=== PATIENT | male | born 1945 | race Caucasian/White ===

== ENCOUNTER → 2016-12-04 | Outpatient (CLI) | payer BC, OTHER ==
[~2016-12-04] MED LIST: ACET-1256 PO; ATOR-22 PO; MULT-506 PO; NRN/600 PO; RQP/2 PO; TAMS0.4C38 PO
--- NOTE | 2016-12-04 09:56 | DIAGNOSTIC IMAGING REPORT ---
LEFT HAND MIN 3 VIEWS CLINICAL HISTORY: LEFT HAND PAIN pain COMPARISON: None. DISCUSSION: The bones and joint spaces appear intact. There is no evidence of fracture, dislocation or bony disease. Minimal degenerative change of the interphalangeal as well as metacarpophalangeal joints. Moderate degenerative change first carpometacarpal joint. IMPRESSION: Mild to moderate degenerative change. No acute bony abnormality. Electronically signed by: Esteban Negro M.D. 12/04/2016 9:55 AM Dictated Date/Time: 12/04/2016 9:53 AM
== END | disposition home or self-care (01) ==
LOC: C.RDSM 12:24
PROVIDERS: ATTEND Internal Medicine
DX: M79.642 Pain in left hand (principal)

== ENCOUNTER → 2016-12-13 | Day surgery (SDC) | payer BC, OTHER ==
[2016-12-03 12:11] VITALS: Ht 170.2 cm; Wt 81.8 kg
[~2016-12-13] VITALS: Ht 170.2 cm; Wt 81.8 kg
[~2016-12-13] MED LIST changes: +BUPIVACAINE 0.25% 2.5MG/ML PF 10 ML VIAL INFIL ONE; +IOPAMIDOL INJ 61% 15 ML VIAL ONE; +LIDOCAINE HCL 1% MPF 5 ML VIAL ONE
--- NOTE | 2016-12-13 14:31 | History & Physical Bridge - [place] ---
H&P Re-Evaluation Bridge Note: I have examined the patient, reviewed the History & Physical and in the interval since the performance of the History & Physical I have noted the following changes of clinical significance: No changes noted
[2016-12-13] MEDS: SODIUM CHLORIDE 0.9% INJ 10 ML VIAL ONE ×2 (14:43→14:51)
[2016-12-13 14:57] VITALS: TEMP 36.7
[2016-12-13 15:06] VITALS: BP 166/89; PULSE 65; O2SAT 94
--- NOTE | 2016-12-13 15:07 | Discharge Instructions ---
Discharge Instructions Date of Service Dec 13, 2016. Visit Reason for Visit: Lumbosacral Radiculopathy Discharge Discharge Diagnosis / Problem: leg pain Discharge Goals Goal(s): Decrease discomfort, Improve function Activity Recommendations Activity Limitations: resume your previous activity Anesthesia . Post Anesthesia Instructions: If you have had General Anesthesia or IV Sedation: * Do not drive today. * Resume driving when surgeon permits. * Do not make important decisions or sign legal documents today. * Call surgeon for: 1. Temperature elevations greater than 101 degrees F. 2. Uncontrollable pain. 3. Excessive bleeding. 4. Persistent nausea and vomiting. 5. Medication intolerance (nausea, vomiting or rash). * For nausea and vomiting use only clear liquids such as: tea, soda, bouillon until nausea subsides, then gradually increase diet as tolerated. * If you have any concerns or questions, call your surgeon's office. If physician is unavailable and it is an emergency, call 911 or go to the nearest emergency room. . Diet Recommendations Recommended Home Diet: resume previous diet Procedures Procedures Performed: Right L1-2 Transforaminal epidural steroid injection Pending Studies Studies pending at discharge: no Medical Emergencies . Who to Call and When: Medical Emergencies: If at any time you feel your situation is an emergency, please call 911 immediately. . Non-Emergent Contact Non-Emergency issues call your: Specialist . . "Provider Documentation" section prepared by Christiano Max.
--- NOTE | 2016-12-13 15:21 | OPERATIVE REPORT ---
DATE OF OPERATION: 12/13/2016 PREOPERATIVE DIAGNOSIS: L1-L2 discogenic bulge with a right L2 radiculopathy. POSTOPERATIVE DIAGNOSIS: Same. PROCEDURE: Right L1-L2, right paramedian intralaminar epidural steroid injection under fluoroscopic guidance. INDICATIONS: The patient is a 71-year-old white male who has a history of a lumbar stenosis with fusion. He recently began having problems with a right L2 radiculopathy. He presents today for a transforaminal approach to deal with the right-sided pain. Recently, he is describing pain now starting to begin on the left side as a problem, the same location. He presents for an epidural injection to relieve his radicular pain. PHYSICAL EXAMINATION: Pleasant male seated comfortably. A well-healed multilevel incision. He had no issues with forward flexion or extension. He had normal motor and sensory examination. CONSENT: Verbal and written consent was obtained from the patient. Risks and benefits were reviewed. Risks include but are not limited to epidural abscess, allergic reaction, dural puncture; he wishes to proceed. PROCEDURE: The patient was taken back to the special procedures room of the [facility] where he was maintained in a prone position. Backside was cleansed with Betadine x3 and a dry sterile dressing was applied. Fluoroscope was used to identify the L1-L2 intralaminar space. What was noted was that his level of fusion scar was a good inch below the interlaminar opening. Decision was made to do an intralaminar rather than a transforaminal approach given the fact that the patient now began having bilateral symptoms and a right transforaminal approach would have only address symptoms on the right. Intralaminar approach would get bilateral symptoms. The overlying skin at L1-L2 was anesthetized on the right side with 4 mL of lidocaine 1% with a 25 gauge 1.5-inch needle. A 22-gauge 3-1/2 inch Tuohy needle was then directed under fluoroscopic guidance into the intralaminar space and advanced laterally with a loss of resistance noted at a depth of 6.5 cm. Isovue 300 contrast 3/4 reserve mL was injected in which demonstrated epidural uptake pattern which was confirmed with both lateral and AP view. He then underwent injection after negative aspiration of 3 mL of preservative free sodium chloride and 40 mg of Depo-Medrol. Injection was well tolerated. DISPOSITION: 1. The patient is taken out into the discharge recovery area where he will be discharged home once discharge criteria have been met. 2. Follow up in the [facility] Medicine office in 2-4 weeks. I attest to the content of the Intraoperative Record and any orders documented therein. Any exceptio ns are noted below.
== END | disposition home or self-care (01) ==
LOC: X.SURG 13:40
PROVIDERS: ATTEND Physical Medicine & Rehabilitation
DX: M54.16 Radiculopathy, lumbar region (principal); M51.36 Other intervertebral disc degeneration, lumbar region; Z98.1 Arthrodesis status

== ENCOUNTER → 2017-01-21 | Outpatient (CLI) | payer BC, OTHER ==
[~2017-01-21] MED LIST changes: -BUPIVACAINE 0.25% 2.5MG/ML PF 10 ML VIAL INFIL ONE; +GADAVIST IV PRN; -IOPAMIDOL INJ 61% 15 ML VIAL ONE; -LIDOCAINE HCL 1% MPF 5 ML VIAL ONE
--- NOTE | 2017-01-21 10:55 | DIAGNOSTIC IMAGING REPORT ---
MRI OF THE LUMBAR SPINE WITH AND WITHOUT CONTRAST CLINICAL HISTORY: History of fusion with right L2 radiculopathy. COMPARISON STUDY: None. TECHNIQUE: Utilizing a 1.5 Radha magnet and dedicated coil, multiplanar, multiecho imaging of the lumbar spine was performed before and after uneventful IV administration of 8 mL of Gadavist. FINDINGS: For purposes of numbering on this exam, the L5-S1 disc space is assigned to axial image 27 of 30. There is 3 mm of anterolisthesis of L4 and L5. There is mild levoscoliosis of the lumbar spine. There is a posterior decompression at the L4-S1 level. There is bilateral pedicle screws at the L4 and L5 levels with evidence of a previous L5-S1 discectomy with fusion. No intracanalicular mass or fluid collection is present. Conus terminates at the lower L1 level. There is a suspected 1.9 cm right renal cyst. Discogenic changes are noted at the L1-L2 level. Mild disc bulges at T11-T12 and T12-L1 are noted. L1-2: There is disc space narrowing with disc bulge, ligamentous hypertrophy and facet arthrosis that result in severe narrowing of the central canal, lateral recesses and neural foramen. L2-3: There is marked disc with mild disc bulge, ligamentous hypertrophy and facet arthrosis. There is mild narrowing of the central canal, lateral recesses and left neural foramen with moderate to severe narrowing of the right neural foramen. L3-4: There is displacement with disc bulge, ligamentous hypertrophy and facet arthrosis. There is mild narrowing of the central canal, lateral recesses and neural foramen. L4-5: There is no central canal stenosis. There is moderate bilateral neural foraminal stenosis. L5-S1: There is no central canal stenosis. There is mild bilateral neural foraminal stenosis. IMPRESSION: 1. Status post previous L5-S1 discectomy and fusion. L4-L5 decompression and bilateral pedicle screw fusion. 2. Mild levoscoliosis of lumbar spine and grade I anterolisthesis of L4 and L5. 3. Severe narrowing of the central canal, lateral recesses and neural foramen at L1-L2 due to disc bulge, ligamentous hypertrophy and facet arthrosis. 4. Mild central canal stenosis at L2-L3 and L3-L4. 5. Moderate to severe multilevel neural foraminal stenosis, most pronounced at L1-L2 and L2-L3, as described above. Electronically signed by: Stan Powell M.D. 01/21/2017 10:54 AM Dictated Date/Time: 01/21/2017 10:44 AM
== END | disposition home or self-care (01) ==
LOC: C.MRI 09:19
PROVIDERS: ATTEND Physical Medicine & Rehabilitation
DX: M54.17 Radiculopathy, lumbosacral region (principal)

== ENCOUNTER → 2017-06-18 | Outpatient (CLI) | payer BC, OTHER ==
[~2017-06-18] MED LIST changes: -GADAVIST IV PRN
--- NOTE | 2017-06-18 10:51 | DIAGNOSTIC IMAGING REPORT ---
RIGHT KNEE 4 VIEWS HISTORY: RIGHT KNEE PAIN AND SWELLING COMPARISON: None. FINDINGS: There is no fracture or dislocation. Soft tissues are unremarkable. Mild cartilage space narrowing within the medial compartment of the bilateral knees. Suggestion of faint bilateral chondrocalcinosis. Trace right knee effusion. Mild vascular calcifications. IMPRESSION: 1. 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 2. Trace right knee effusion. 3. Chondrocalcinosis. Electronically signed by: Alfredo Dowd M.D. 06/18/2017 10:50 AM Dictated Date/Time: 06/18/2017 10:48 AM
== END | disposition home or self-care (01) ==
LOC: C.RDSM 10:32
PROVIDERS: ATTEND Internal Medicine
DX: M25.561 Pain in right knee (principal); M11.261 Other chondrocalcinosis, right knee

== ENCOUNTER → 2018-04-30 | Day surgery (SDC) | payer BC, OTHER ==
[2018-04-17 12:21] VITALS: Ht 170.2 cm; Wt 82.7 kg
[~2018-04-30] VITALS: Ht 170.2 cm; Wt 82.7 kg
[~2018-04-30] MED LIST changes: +ASPCH81X PO; +BUPIVACAINE 0.25% 30 ML VIAL ONE; +BUPR75TA20 PO; +GLIM2TAB2 PO; +IOPAMIDOL INJ 61% 15 ML VIAL ONE; +LIDOCAINE HCL 1% MPF 5 ML VIAL ONE; +LISI-461 PO
[2018-04-30] MEDS: SODIUM CHLORIDE 0.9% INJ 10 ML VIAL ONE ×2 (13:11→13:20)
--- NOTE | 2018-04-30 13:24 | [facility] Post Operative Brief Note ---
Immediate Operative Summary Operative Date Apr 30, 2018. Pre-Operative Diagnosis HISTORY OF LUMBOSACRAL RADICULOPATHY AT L4 Post-Operative Diagnosis HISTORY OF LUMBOSACRAL RADICULOPATHY AT L4 Procedure(s) Performed LUMBAR EPIDURAL STEROID INJECTION VIA TRANSFORAMINAL APPROACH Surgeon DR. Forest PRADHAN Sheet Folder Surgeon(s) None Estimated Blood Loss 0 Findings Consistent with Post-Op Diagnosis Specimens NA Drains None Anesthesia Type Local Disposition Disposition:
--- NOTE | 2018-04-30 13:26 | Discharge Instructions ---
Discharge Instructions Date of Service Apr 30, 2018. Visit Reason for Visit: Radiculopathy Discharge Discharge Diagnosis / Problem: right leg pain Discharge Goals Goal(s): Decrease discomfort, Improve function Medications Stopped Medications Name(s): Last dose ASA 04/26/18. Activity Recommendations Activity Limitations: resume your previous activity Anesthesia . Post Anesthesia Instructions: If you have had General Anesthesia or IV Sedation: * Do not drive today. * Resume driving when surgeon permits. * Do not make important decisions or sign legal documents today. * Call surgeon for: 1. Temperature elevations greater than 101 degrees F. 2. Uncontrollable pain. 3. Excessive bleeding. 4. Persistent nausea and vomiting. 5. Medication intolerance (nausea, vomiting or rash). * For nausea and vomiting use only clear liquids such as: tea, soda, bouillon until nausea subsides, then gradually increase diet as tolerated. * If you have any concerns or questions, call your surgeon's office. If physician is unavailable and it is an emergency, call 911 or go to the nearest emergency room. . Diet Recommendations Recommended Home Diet: resume previous diet Procedures Procedures Performed: LUMBAR EPIDURAL STEROID INJECTION VIA TRANSFORAMINAL APPROACH Pending Studies Studies pending at discharge: no Medical Emergencies . Who to Call and When: Medical Emergencies: If at any time you feel your situation is an emergency, please call 911 immediately. . Non-Emergent Contact Non-Emergency issues call your: Specialist . . "Provider Documentation" section prepared by Christiano Max. .
[2018-04-30 13:30] VITALS: TEMP 37.2
[2018-04-30 13:50] VITALS: BP 168/90; PULSE 64; O2SAT 96
--- NOTE | 2018-04-30 14:29 | OPERATIVE REPORT ---
DATE OF OPERATION: 04/30/2018 PREOPERATIVE DIAGNOSIS: History of an L4-L5 fusion, L5-S1 prior fusion, with L4 radiculopathy, right lower extremity. POSTOPERATIVE DIAGNOSIS: Same. PROCEDURE: L4-L5 transforaminal epidural steroid injection under fluoroscopic guidance. INDICATIONS: Patient is a 72-year-old white male who has a right L4 radiculopathy that follows a classic dermatomal distribution, presents today for an epidural injection to provide her with relief. PHYSICAL EXAMINATION: Pleasant male, seated comfortably. He had negative seated straight leg raises, no reproduction of pain with internal rotation of the right hip. External rotation reproduced pain but not to the Alfredo maneuver. Intact sensation. No focal weakness. CONSENT: Verbal and written consent was obtained from the patient. Risks and benefits reviewed. Risks include but are not limited to abscess and allergic reaction, and he wishes to proceed. PROCEDURE: Patient was taken back to the special procedures room of the [facility] where he was maintained in a prone position. Backside was cleansed with Betadine. It became apparent that it could not be entered via the interlaminar approach, and a transforaminal approach was sought. In an oblique view, identifying the inferior L4-L5 pedicle, the inferior pedicle of L4, overlying skin was anesthetized with 4 mL of lidocaine 1% with 25 gauge 1-1/2 inch needle. A 22 gauge 5 inch spinal needle was then directed as a target. It was then advanced and injected with Isovue 300 contrast, which demonstrated a nerve outline but also some superior migration that was felt to be along the osteophyte. It was then advanced a millimeter or two, and he had pain reproduced down the leg in a familiar distribution. It was retracted 1 mm and injected after negative aspiration with 40 mg of Depo-Medrol and 1 mL of bupivacaine 0.25%. This caused transient numbing sensation down the leg in a familiar distribution. He then underwent injection after negative aspiration of 40 mg Depo-Medrol and 1 mL of bupivacaine 0.25%. DISPOSITION: 1. The patient is taken out in discharge recovery area where he will be discharged home once discharge criteria met. 2. Follow up in the [facility] office in 4 weeks' time. I attest to the content of the Intraoperative Record and any orders documented therein. Any exception s are noted below.
== END | disposition home or self-care (01) ==
LOC: X.SURG 12:13
PROVIDERS: ATTEND Physical Medicine & Rehabilitation
DX: M54.16 Radiculopathy, lumbar region (principal); Z98.1 Arthrodesis status

== ENCOUNTER 2020-10-20 02:50 | Inpatient (IN) ==
[2020-10-20] MEDS ORDERED: NITROGLYCERIN SL 0.4 MG/TAB TAB SL PRN (03:03)
[2020-10-20] MEDS ORDERED: NITROGLYCERIN SL 0.4 MG/TAB TAB SL STA (03:03)
--- NOTE | 2020-10-20 03:07 | Emergency Department Note ---
Impression & Plan ST elevation (STEMI) myocardial infarction ED Provider Note Name: BEV JOSE Age: 75 Sex: M Arrives Via: Walk-In Informant: Patient, ED Provider: Sameer Saavedra MD Chief Complaint: Chest Pain Impression: ST Elevation (STEMI) myocardial Infarction Medical Decision Makin yr old male with history of DMII, HTN, DLP, and family CAD history arrives with several hours chest pain radiating bilateral upper (did also occur a few days ago briefly as well). EKG on arrival consistent with RCA occlusion STEMI. Heart alert called and cath team activated. Pulses intact all4 extremities and CXR without widened mediastinum thus dissection less likely than acs. Quite Hypertensive on arrival and given SLNTG x2 with improvement in pain and bp. Does have some mild sob and crackles, along with CXR somewhat concerning for mild chf. Sats mid/low 90s thus placed on NC O2. Initial labs with good Cr. Already took 324mg PO ASA at home. Per protocol cath team to manage further anticoagulation. 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 Patient taken to Handling Tech with Dr Guardado. Of note some mildly increased ectopy though without symptoms prior to going to manager laboratory, pads in place. Prior Medical Record and Triage/Nursing Notes reviewed by Me Additional history obtained from chart and Differentials:Cardiac ischemia, aortic dissection, pulmonary embolism, p neumothorax, pneumonia, pericarditis, myocarditis, esophageal rupture, GERD, cholecystitis, pancreatitis, musculoskeletal, as well as other pathologies. Vital Signs: reviewed and remarkable for HTN Interventions: SLNTG x 2 Labs:Reviewed and remarkable for elevated troponin Imaging:X ray results are stated below per my interpretation: Chest: 1 view: No infiltrate, no effusion, normal cardiac border. Mild congestion. EKG:Per My Interpretation: Indication Chest Pain: NSR 76 bpm, qtc 443. Acute Inferior STEMI with PVC noted. Compared to EKG 07/26/18 he now has acute STEMI. Cardiac/Tele Monitoring: Cardiac Monitoring: An Order was placed for continuous cardiac monitoring. The monitor shows a rate of 70 with a normal sinus rhythm with ectopy noted at times. Consults:Dr Guardado Cardiac Interventionalist - took patient to manager laboratory. Dr Brito MA Hospitalist aware of patient going to manager laboratory. Plan: Disposition:Hospitalization. Condition: Critical History of Present Illness:75 yr old male with chest pain. Notes substernal radiating across upper chest. Heavy and constant. 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 Used ASA 324mg PO at home without relief. Feels slightly lightheaded. No nausea, vomiting, syncope, palpitations, back pain, abdominal pain, leg swelling, calf pain, headache, neck pain, fevers, chills, nor other symptoms. Denies inciting event. Notes some similar pain 3 days ago which resolved on its own. No KEENAN r ecently. Denies previous cardiac history. ROS: See above HPI for pertinent positives & negatives. A total of 10 systems reviewed and were otherwise negative. Past Medical History:HTN, DMII, DLP, Back pain, restless leg, migraines, anxiety Past Surgical History:Gallbladder, shoulder, Lumbar, hemorrhoid Family History:Denies family history Social History:Retired, , no etoh, no tobacco use, no drugs Home Medications:See Below Allergies:metformin, mirapex, ropinirole Vitals:Blood Pressure: 206/113, Pulse 72, RR 18, T 37.2C, O2 95% on RA Physical Exam: GENERAL: Patient is anxious appearing and in moderate distress. EYES: No scleral icterus, unremarkable pupils. ENT: Mucous membranes moist, no nasal congestion. NECK: No masses appreciated, nomeningismus, trachea is midline. RESPIRATORY: Mild dyspnea with some slight crackles at bases, no wheezing CARDIOVASCULAR: Regular rate and rhythm.No murmurs, rubs, gallops appreciated. GASTROINTESTINAL: Abdomen soft, non-tender, no peritonitis.Bowel sounds positive.No masses appreciated. BACK: No midline tenderness, no CVA tenderness EXTREMITIES: Normal motion all extremities, no cyanosis, no edema. NEUROLOGIC: Alert and oriented, no acute motor or sensory deficits, no focal weakness, cranial nerves grossly intact. SKIN: No rash, no jaundice, no diaphoresis. PSYCH: Appropriate GCS: 15 ED Course: Times/Reassessments: Gradually improving chest pain Critical Care: I have personally spent 35 minutes of critical care time in the direct management of this patient. Acute STEMI requiring manager laboratory activation. This was a life/limb threatening event. This 35 minutes is in excess of all separately billable procedures. Sameer Saavedra MD Past Med/Surg History Medical History (Updated 10/20/20 @ 05:48 by Sameer Saavedra MD) BPH (benign prostatic hyperplasia) Chronic back pain Depression Diabetes Hyperlipidemia Hypertension Lumbar spinal stenosis T12-L1 Osteoarthritis Restless leg syndrome Surgical History (Updated 05/16/20 @ 13:42 by [employer] Nm) H/O hemorrhoidectomy H/O shoulder surgery History of back surgery X4 - FUSION AND DISECTOMIES History of bunionectomy of right great toe History of cholecystectomy History of tonsillectomy Family History Other Family history non-contributory Social History Smoking Status: Never smoker Second Hand Exposure: No; Hx Alcohol Use: No Hx Substance Use: Yes (has a marijuana card but doesnt use it) Preferred Language: Brazilian Communication Ability: Effective Visual Impairment: No Limitations Hearing Ability: Normal Beliefs That Will Affect Care: None marital status: Current Living Situation: Spouse current occupational status: retired Feels Safe at Home: Yes Safety Concerns: Feels Safe At This Time Assistive Devices: Glasses Allergies Allergies Allergy/AdvReac Type Severity Reaction Status Date / Time metformin AdvReac Severe Diarrhea Verified 10/20/20 03:16 pramipexole [From Mirapex] AdvReac Unknown insomnia Verified 10/20/20 03:16 ropinirole AdvReac Unknown nasal Verified 10/20/20 03:16 congestion Home Meds Home Medications Medication Instructions Recorded Confirmed atorvastatin 20 mg PO HS 07/26/18 10/20/20 bupropion HCl 150 mg PO QPM 07/26/18 10/20/20 lisinopril [Zestril] 10 mg PO QAM 07/26/18 10/20/20 multivitamin 1 tab PO QAM 07/26/18 10/20/20 acetaminophen 650 mg PO Q6H PRN 04/01/19 10/20/20 ibuprofen 800 mg tablet 800 mg PO Q8H PRN 09/22/19 10/20/20 lorazepam 1 mg tablet 1 mg PO DAILY PRN 09/22/19 10/20/20 meloxicam 15 mg tablet 15 mg PO DAILY PRN 09/22/19 10/20/20 ropinirole 2 mg tablet 3.5 mg PO .COMPLEX tab 11/03/19 10/20/20 aluminum hydrox-magnesium carb 2 tab PO DIRECTED PRN 10/20/20 10/20/20 [Gaviscon] aspirin [Aspirin Child] 324 mg PO ONCE 10/20/20 10/20/20 gabapentin 600 mg PO TID PRN 10/20/20 10/20/20 hydrocodone-acetaminophen 1 tab PO DIRECTED PRN 10/20/20 10/20/20 oxybutynin chloride 5 mg PO DAILY 10/20/20 10/20/20 turmeric 400 mg PO DAILY 10/20/20 10/20/20 Results & Data (ED) Vital Signs Vital Signs - 24 hr 10/20/20 02:51 10/20/20 03:10 10/20/20 03:15 Temperature 37.2 C Temperature Source Temporal Artery Scan Pulse Rate 72 88 100 H Pulse Rate from SpO2 Sensor Respiratory Rate 18 21 21 Respiratory Effort / Characteristics Non-Labored Spontaneous Respiratory Depth Normal Respiratory Pattern Regular Blood Pressure 206/113 H 178/106 H 164/78 H Blood Pressure Mean 144 130 106 Blood Pressure Position Sitting Pulse Oximetry 95 93 91 Oxygen Delivery Method Room Air Room Air Room Air Oxygen Flow Rate Sepsis Recent Fever Within 48 Hours No Sepsis New/Unexplained Change in Mental Status No Sepsis Action Taken by Nursing No Action Required 10/20/20 03:30 Temperature Temperature Source Pulse Rate 87 Pulse Rate from SpO2 Sensor 66 Respiratory Rate 20 Respiratory Effort / Characteristics Respiratory Depth Respiratory Pattern Blood Pressure 175/96 H Blood Pressure Mean 122 Blood Pressure Position Pulse Oximetry 94 Oxygen Delivery Method Nasal Cannula Oxygen Flow Rate 2 Sepsis Recent Fever Within 48 Hours Sepsis New/Unexplained Change in Mental Status Sepsis Action Taken by Nursing Laboratory Data Result diagrams: 10/20/20 03:05 10/20/20 03:05 Lab Results 10/20/20 10/20/20 10/20/20 Range/Units 03:05 03:05 03:05 WBC 6.94 (4.8-10.8) K/uL RBC 5.33 (4.7-6.1) M/uL Hgb 16.1 (14.0-18.0) g/dL POC Hgb (14.0-18.0) g/dl Hct 47.3 (42-52) % POC Hct (42-52) % MCV 88.7 (80-100) fL MCH 30.2 (25-34) pg MCHC 34.0 (32-36) g/dL RDW Std Deviation 44.5 (36.4-46.3) fL RDW Coeff of Linh 13.6 (11.5-14.5) % Plt Count 179 (130-400) K/uL MPV 11.1 H (7.4-10.4) fL Immature Gran % (Auto) 0.3 % Neut % (Auto) 63.1 % Lymph % (Auto) 19.2 % Sabine % (Auto) 13.3 % Eos % (Auto) 4.0 % Baso % (Auto) 0.1 % Neut # (Auto) 4.38 (1.4-6.5) K/uL Lymph # (Auto) 1.33 (1.2-3.4) K/uL Sabine # (Auto) 0.92 H (0.11-0.59) K/uL Eos # (Auto) 0.28 (0-0.5) K/uL Baso # (Auto) 0.01 (0-0.2) K/uL Immature Gran # (Auto) 0.02 (0.00-0.02) K/uL PT 10.4 (9.0-12.0) Seconds INR 1.0 (0.9-1.1) APTT 28.9 (21.0-31.0) Seconds PTT Ratio 1.1 Activ Coag Time Kaolin (94-140) SECONDS POC Sodium (135-144) mmol/L Sodium 142 (136-145) mmol/L POC Potassium (3.3-5.0) mmol/L Potassium 3.9 (3.5-5.1) mmol/L POC Chloride (101-112) mmol/L Chloride 111 H (98-107) mmol/L Carbon Dioxide 24 (21-32) mmol/L POC Total CO2 (24-31) mmol/L Anion Gap 7.0 (3-11) POC Anion Gap (16-25) mmol/L POC BUN (7-18) mg/dl BUN 26 H (7-18) mg/dl Creatinine 0.97 (0.6-1.4) mg/dl POC Creatinine (0.6-1.3) mg/dl Est Cr Clr Drug Dosing 71.8 ml/min Est GFR ( Amer) 89.4 Est GFR (Non-Af Amer) 77.1 BUN/Creatinine Ratio 26.4 H (10-20) Glucose 148 H (70-99) mg/dl POC Glucose (other) (70-99) mg/dl Calcium 8.5 (8.5-10.1) mg/dl POC Ioniz Calcium Michael (1.12-1.32) mmol/l Troponin I 0.229 H* (0-0.045) ng/ml Triglycerides Cholesterol LDL Cholesterol Direct LDL Cholesterol, Calc VLDL Cholesterol, Calc HDL Cholesterol Cholesterol/HDL Ratio COVID-19 Eval Order SARS-CoV-2, RNA, NAAT (NEGATIVE) 10/20/20 10/20/20 10/20/20 Range/Units 03:05 03:05 03:05 WBC (4.8-10.8) K/uL RBC (4.7-6.1) M/uL Hgb (14.0-18.0) g/dL POC Hgb (14.0-18.0) g/dl Hct (42-52) % POC Hct (42-52) % MCV (80-100) fL MCH (25-34) pg MCHC (32-36) g/dL RDW Std Deviation (36.4-46.3) fL RDW Coeff of Linh (11.5-14.5) % Plt Count (130-400) K/uL MPV (7.4-10.4) fL Immature Gran % (Auto) % Neut % (Auto) % Lymph % (Auto) % Sabine % (Auto) % Eos % (Auto) % Baso % (Auto) % Neut # (Auto) (1.4-6.5) K/uL Lymph # (Auto) (1.2-3.4) K/uL Sabine # (Auto) (0.11-0.59) K/uL Eos # (Auto) (0-0.5) K/uL Baso # (Auto) (0-0.2) K/uL Immature Gran # (Auto) (0.00-0.02) K/uL PT (9.0-12.0) Seconds INR (0.9-1.1) APTT (21.0-31.0) Seconds PTT Ratio Activ Coag Time Kaolin (94-140) SECONDS POC Sodium (135-144) mmol/L Sodium (136-145) mmol/L POC Potassium (3.3-5.0) mmol/L Potassium (3.5-5.1) mmol/L POC Chloride (101-112) mmol/L Chloride (98-107) mmol/L Carbon Dioxide (21-32) mmol/L POC Total CO2 (24-31) mmol/L Anion Gap (3-11) POC Anion Gap (16-25) mmol/L POC BUN (7-18) mg/dl BUN (7-18) mg/dl Creatinine (0.6-1.4) mg/dl POC Creatinine (0.6-1.3) mg/dl Est Cr Clr Drug Dosing ml/min Est GFR ( Amer) Est GFR (Non-Af Amer) BUN/Creatinine Ratio (10-20) Glucose (70-99) mg/dl POC Glucose (other) (70-99) mg/dl Calcium (8.5-10.1) mg/dl POC Ioniz Calcium Michael (1.12-1.32) mmol/l Troponin I (0-0.045) ng/ml Triglycerides Cancelled Cholesterol Cancelled LDL Cholesterol Direct Cancelled LDL Cholesterol, Calc Cancelled VLDL Cholesterol, Calc Cancelled HDL Cholesterol Cancelled Cholesterol/HDL Ratio Cancelled COVID-19 Eval [facility] SARS-CoV-2, RNA, NAAT NEGATIVE (NEGATIVE) 10/20/20 10/20/20 Range/Units 03:19 04:05 WBC (4.8-10.8) K/uL RBC (4.7-6.1) M/uL Hgb (14.0-18.0) g/dL POC Hgb 16.3 (14.0-18.0) g/dl Hct (42-52) % POC Hct 48 (42-52) % MCV (80-100) fL MCH (25-34) pg MCHC (32-36) g/dL RDW Std Deviation (36.4-46.3) fL RDW Coeff of Linh (11.5-14.5) % Plt Count (130-400) K/uL MPV (7.4-10.4) fL Immature Gran % (Auto) % Neut % (Auto) % Lymph % (Auto) % Sabine % (Auto) % Eos % (Auto) % Baso % (Auto) % Neut # (Auto) (1.4-6.5) K/uL Lymph # (Auto) (1.2-3.4) K/uL Sabine # (Auto) (0.11-0.59) K/uL Eos # (Auto) (0-0.5) K/uL Baso # (Auto) (0-0.2) K/uL Immature Gran # (Auto) (0.00-0.02) K/uL PT (9.0-12.0) Seconds INR (0.9-1.1) APTT (21.0-31.0) Seconds PTT Ratio Activ Coag Time Kaolin 312 H (94-140) SECONDS POC Sodium 140 (135-144) mmol/L Sodium (136-145) mmol/L POC Potassium 3.7 (3.3-5.0) mmol/L Potassium (3.5-5.1) mmol/L POC Chloride 106 (101-112) mmol/L Chloride (98-107) mmol/L Carbon Dioxide (21-32) mmol/L POC Total CO2 22 L (24-31) mmol/L Anion Gap (3-11) POC Anion Gap 16.0 (16-25) mmol/L POC BUN 25 H (7-18) mg/dl BUN (7-18) mg/dl Creatinine (0.6-1.4) mg/dl POC Creatinine 0.8 (0.6-1.3) mg/dl Est Cr Clr Drug Dosing ml/min Est GFR ( Amer) Est GFR (Non-Af Amer) BUN/Creatinine Ratio (10-20) Glucose (70-99) mg/dl POC Glucose (other) 150 H (70-99) mg/dl Calcium (8.5-10.1) mg/dl POC Ioniz Calcium Michael 1.14 (1.12-1.32) mmol/l Troponin I (0-0.045) ng/ml Triglycerides Cholesterol LDL Cholesterol Direct LDL Cholesterol, Calc VLDL Cholesterol, Calc HDL Cholesterol Cholesterol/HDL Ratio COVID-19 Eval Order SARS-CoV-2, RNA, NAAT (NEGATIVE) Administered Medications Discontinued Medications Atropine Sulfate (Atropine Sulfate 0.1 Mg/Ml 10ml Syr) Confirm Administered Dose 1 mg IV .STConspire-MED ONE Stop: 10/20/20 03:54 Last Admin: 10/20/20 05:05 Dose: Not Given Documented by: [id number] Fentanyl Citrate (Fentanyl Citrate 100 Mcg/2 Ml Vial) Confirm Administered Dose 100 mcg .ROUTE .STK-MED ONE Stop: 10/20/20 03:23 Last Admin: 10/20/20 05:04 Dose: Not Given Documented by: [id number] Heparin Sodium (Porcine) (Heparin (Porcine) 1000 Unit/Ml 10 Ml (Handling Tech Use Only)) Confirm Administered Dose 10,000 units .ROUTE .STK-MED ONE Stop: 10/20/20 03:23 Last Admin: 10/20/20 05:05 Dose: Not Given Documented by: [id number] Midazolam HCl (Midazolam Hcl 1 Mg/Ml 2ml Vial) Confirm Administered Dose 2 mg .ROUTE .STK-MED ONE Stop: 10/20/20 03:24 Last Admin: 10/20/20 05:05 Dose: Not Given Documented by: [id number] Midazolam HCl (Midazolam Hcl 1 Mg/Ml 2ml Vial) Confirm Administered Dose 2 mg .ROUTE .ST-MED ONE Stop: 10/20/20 04:11 Last Admin: 10/20/20 05:05 Dose: Not Given Documented by: [id number] Nicardipine HCl (Nicardipine Hcl Inj 2.5 Mg/Ml 10 Ml Amp) Confirm Administered Dose 25 mg .ROUTE .STConspire-MED ONE Stop: 10/20/20 03:23 Last Admin: 10/20/20 05:04 Dose: Not Given Documented by: [id number] Nitroglycerin (Nitroglycerin Sl 0.4 Mg/Tab Tab) 0.4 mg SL NOW STA Stop: 10/20/20 03:04 Last Admin: 10/20/20 03:11 Dose: 0.4 mg Documented by: [id number] Nitroglycerin (Nitroglycerin Sl 0.4 Mg/Tab Tab) 0.4 mg SL PRN PRN PRN Reason: chest pain Stop: 11/19/20 03:02 Last Admin: 10/20/20 03:27 Dose: 0.4 mg Documented by: [id number] Nitroglycerin/Dextrose (Nitroglycerin/D5w 100mcg/Ml 20ml Syr) Confirm Administered Dose 2,000 mcg .ROUTE .STK-MED ONE Stop: 10/20/20 03:24 Last Admin: 10/20/20 05:05 Dose: Not Given Documented by: [id number] Ticagrelor (Ticagrelor 90 Mg Tab) Confirm Administered Dose 180 mg PO .STK-MED ONE Stop: 10/20/20 04:25 Last Admin: 10/20/20 05:05 Dose: Not Given Documented by: [id number] Discharge Plan Visit Data Chief Complaint: Chest Pain Stated Complaint: chest pain ED Provider: Sameer Saavedra Discharge Problem: ST elevation (STEMI) myocardial infarction Patient Disposition: Admitted As Inpatient Discharge Instructions Interventions: ED Discharge Assessment Last Done: 10/20/20 03:34 Discharge Problem: ST elevation (STEMI) myocardial infarction Qualifiers: Involved coronary artery: right coronary artery Qualified Code(s): I21.11 - ST elevation (STEMI) myocardial infarction involving right coronary artery
[2020-10-20 03:14] LABS: Basophils # (auto) 0.01 K/uL (0-0.2); Basophils % (auto) 0.1 %; Eosinophils # (auto) 0.28 K/uL (0-0.5); Hematocrit (blood only) 47.3 % (42-52); Hemoglobin 16.1 g/dL (14.0-18.0); Immature Granulocytes # (auto) 0.02 K/uL (0.00-0.02); Immature Granulocytes % (auto) 0.3 %; Lymphocytes # (auto) 1.33 K/uL (1.2-3.4); Lymphocytes % (auto) 19.2 %; Mean Corpuscular Hemoglobin 30.2 pg (25-34); Mean Corpuscular Volume 88.7 fL (80-100); Mean Platelet Volume 11.1 fL (7.4-10.4); Monocytes # (auto) 0.92 K/uL (0.11-0.59); Monocytes % (auto) 13.3 %; Neutrophils # (auto) 4.38 K/uL (1.4-6.5); Neutrophils % (auto) 63.1 %; Platelet Count 179 K/uL (130-400); RDW Coefficient of Variation 13.6 % (11.5-14.5); RDW Standard Deviation 44.5 fL (36.4-46.3); Red Blood Count 5.33 M/uL (4.7-6.1); White Blood Count 6.94 K/uL (4.8-10.8)
[2020-10-20] MEDS ORDERED: niCARdipine HCL INJ 2.5 MG/ML 10 ML AMP ONE (03:22)
[2020-10-20] MEDS ORDERED: HEPARIN (PORCINE) 1000 UNIT/ML 10 ML (CATH LAB USE ONLY) ONE (03:22)
[2020-10-20] MEDS ORDERED: fentaNYL citrate 100 MCG/2 ML VIAL ONE (03:22)
[2020-10-20] MEDS ORDERED: NITROGLYCERIN/D5W 100MCG/ML 20ML SYR ONE (03:23)
[2020-10-20] MEDS ORDERED: MIDAZOLAM HCL 1 MG/ML 2ML VIAL ONE ×2 (03:23→04:10)
[2020-10-20 03:26] LABS: Partial Thromboplastin Ratio 1.1; Partial Thromboplastin Time 28.9 Seconds (21.0-31.0); Prothrombin Time 10.4 Seconds (9.0-12.0)
[2020-10-20 03:30] LABS: BUN Creatinine Ratio 26.4 (10-20); Blood Urea Nitrogen 26 mg/dl (7-18); Calcium 8.5 mg/dl (8.5-10.1); Carbon Dioxide 24 mmol/L (21-32); Chloride 111 mmol/L (98-107); Creatinine Clr Calc Pharmacy 71.8 ml/min; Est GFR (African American) 89.4; Est GFR (Non-African American) 77.1; Glucose 148 mg/dl (70-99); Potassium 3.9 mmol/L (3.5-5.1); Sodium 142 mmol/L (136-145)
[2020-10-20 03:36] LABS: iSTAT Creatinine 0.8 mg/dl (0.6-1.3); iSTAT Hemoglobin 16.3 g/dl (14.0-18.0); iSTAT Ionized Calcium 1.14 mmol/l (1.12-1.32); iSTAT Potassium 3.7 mmol/L (3.3-5.0)
[2020-10-20 03:39] LABS: Troponin I 0.229 ng/ml (0-0.045)
--- NOTE | 2020-10-20 03:40 | Pre Anesthesia Assessment ---
Date of Service October 20, 2020 Pre Sedation Assessment Vital Signs Temp Pulse Resp BP Pulse Ox 10/20/20 03:30 87 20 175/96 H 94 10/20/20 03:15 100 H 21 164/78 H 91 10/20/20 03:10 88 21 178/106 H 93 10/20/20 02:51 99.0 F 72 18 206/113 H 95 Cardiovascular RRR, no murmur, no edema Respiratory normal respiratory effort, lungs clear to auscultation Pre-Sedation Airway Assessment Smoking Status: Never smoker Hx Sleep Apnea: No Hx Difficult Intubation: No Short, Thick Neck: No Thyromental Distance: > or= 3.5 Finger Breadths Oral Cavity: + WNL Mallampati Class: III ASA: ASA3 Procedure Planning Contraindications for Sedation: none Current Medications Reviewed: Yes Notes The planned sedation has been discussed with the patient. Informed Consent was obtained. I have identified the patient, determined the appropriateness of sedation and have assessed the patient immediately prior to the procedure. All medicine(s) and interventions are by my order.
--- NOTE | 2020-10-20 03:48 | Cardiology Consultation ---
Date of Consultation October 20, 2020 Assessment & Plan (1) Acute TX: Presentation consistent with inferior STEMI and recommend proceeding with emergent cardiac catheterization and likely primary PCI. No apparent contraindications to procedure. Discussed risks, benefits, alternatives of procedure with patient and they are willing to proceed. Further recommendations pending findings of coronary angiography. History of Present Illness History of Present Illness 75-year-old man here with acute chest pain and ECG concerning for acute TX. Patient seen emergently in the ED after heart alert activated on arrival. No prior cardiac history. Cardiac risk factors include type 2 diabetes on oral therapy, hypertension, dyslipidemia, family history of premature CAD with father having an TX at age 50. Other medical issues include osteoarthritis, lumbar spinal stenosis post surgery with chronic back pain, neuropathy, restless leg syndrome. Initially had an episode of chest pain 4 days ago lasting about 60 minutes which resolved with rest/antacid. Tonight again had chest pain beginning around midnight waking him from sleep. Chest pain at its worst 10 out of 10 describes as substernal with diaphoresis. Prior to 4 days ago denies similar symptoms in the past. Chest pain currently 4 out of 10 after sublingual nitroglycerin. Hypertensive initially to the 200s. EKG showed sinus bradycardia with inferior ST elevations. Allergies Allergy/AdvReac Type Severity Reaction Status Date / Time metformin AdvReac Severe Diarrhea Verified 10/20/20 03:16 pramipexole [From Mirapex] AdvReac Unknown insomnia Verified 10/20/20 03:16 ropinirole AdvReac Unknown nasal Verified 10/20/20 03:16 congestion Home Medications Medication Instructions Recorded Confirmed Type atorvastatin 20 mg PO HS 07/26/18 10/20/20 History bupropion HCl 150 mg PO QPM 07/26/18 10/20/20 History lisinopril [Zestril] 10 mg PO QAM 07/26/18 10/20/20 History multivitamin 1 tab PO QAM 07/26/18 10/20/20 History acetaminophen 650 mg PO Q6H PRN 04/01/19 10/20/20 History ibuprofen 800 mg tablet 800 mg PO Q8H PRN 09/22/19 10/20/20 History lorazepam 1 mg tablet 1 mg PO DAILY PRN 09/22/19 10/20/20 History meloxicam 15 mg tablet 15 mg PO DAILY PRN 09/22/19 10/20/20 History ropinirole 2 mg tablet 3.5 mg PO .COMPLEX tab 11/03/19 10/20/20 History aluminum hydrox-magnesium carb 2 tab PO DIRECTED PRN 10/20/20 10/20/20 History [Gaviscon] aspirin [Aspirin Child] 324 mg PO ONCE 10/20/20 10/20/20 History gabapentin 600 mg PO TID PRN 10/20/20 10/20/20 History hydrocodone-acetaminophen 1 tab PO DIRECTED PRN 10/20/20 10/20/20 History oxybutynin chloride 5 mg PO DAILY 10/20/20 10/20/20 History turmeric 400 mg PO DAILY 10/20/20 10/20/20 History Patient History Medical History (Updated 10/20/20 @ 03:46 by Diego Guardado MD) BPH (benign prostatic hyperplasia) Chronic back pain Depression Diabetes Hyperlipidemia Hypertension Lumbar spinal stenosis T12-L1 Osteoarthritis Restless leg syndrome Surgical History (Updated 05/16/20 @ 13:42 by [employer]) H/O hemorrhoidectomy H/O shoulder surgery History of back surgery X4 - FUSION AND DISECTOMIES History of bunionectomy of right great toe History of cholecystectomy History of tonsillectomy Family History Other Family history non-contributory Social History Smoking Status: Never smoker Second Hand Exposure: No; Hx Alcohol Use: No Hx Substance Use: Yes (uses medical marijuana drops PRN for chronic back pain ) Preferred Language: Greenlandic Communication Ability: Effective Visual Impairment: No Limitations Hearing Ability: Normal Beliefs That Will Affect Care: None marital status: Current Living Situation: Spouse current occupational status: retired Feels Safe at Home: Yes Assistive Devices: None Review of Systems Review of Systems: Not obtained in the setting of emergent situation Physical Exam Physical Exam: General: Uncomfortable HEENT: Sclerae anicteric, mucous membranes moist Lungs: Scant crackles at bases Cardiac: Regular rate and rhythm, no murmurs Abdomen: Soft, nontender Extremities: Warm, well perfused, no edema. 2+ radial pulses Skin: No rashes or lesions. Psych: Alert orient x3, normal affect and mood Results & Data ([facility]) Vital Signs (Past 12 Hours) Vital Signs Temp Pulse Resp BP Pulse Ox 10/20/20 03:30 87 20 175/96 H 94 10/20/20 03:15 100 H 21 164/78 H 91 10/20/20 03:10 88 21 178/106 H 93 10/20/20 02:51 99.0 F 72 18 206/113 H 95 PG Care Time/CCT Total # of Minutes Spent Total Time Spent with Patient: Total time spent is greater than 50% in coordination of care (as documented) at patient's floor/unit and/or counseling patient: Coding Level of Care Code 69981 Initial Inpt Care Lvl 3 Diagnoses Acute TX I21.9
[2020-10-20] MEDS ORDERED: ATROPINE SULFATE 0.1 MG/ML 10ML SYR IV ONE (03:53)
[2020-10-20] MEDS ORDERED: TICAGRELOR 90 MG TAB PO ONE (04:24)
--- NOTE | 2020-10-20 04:45 | Post Anesthesia Assessment ---
Date of Service October 20, 2020 Post Sedation Assessment Vital Signs Temp Pulse Resp BP Pulse Ox 10/20/20 03:30 87 20 175/96 H 94 10/20/20 03:15 100 H 21 164/78 H 91 10/20/20 03:10 88 21 178/106 H 93 10/20/20 02:51 99.0 F 72 18 206/113 H 95 Recovery Score Activity: Moves 4 extremities Respiration: Deep Breath/Cough Circulation: +/-20% PreAnes Value Consciousness: Fully Awake Oxygen Saturation: O2 needed for >90% Discharge Sedation Level of Care: Fast Track Phase II Post Sedation Plan On clinical assessment, the patient appears to have tolerated the sedation without complications. Patient is recovering as anticipated. Patient will continue to be monitored by nursing and may be discharged when sedation discharge criteria are met per below protocol. Upon Completions of procedure up to 15 minutes continue every 5 minute vital signs and the P.A.R. score; then discharge to a Phase I or Fast Track to Phase II per the following guidelines: * Discharge Patient to appropriate Phase II area if PAR is 8 or greater or return to pre- procedure baseline. The post - procedure orders will be as directed. * If PAR score is less than 8 or not return to pre-procedure baseline then patie nt will follow Phase I monitoring till PAR is reached for Phase II. The Phase I may be done in procedure room or may call to secure a Phase I area. * If naloxone or flumazenil are used for reversal, hold in Phase I for continued monitoring from when last reversal dose was given for a minimum of 60 minutes or longer pending the nurse and/or physician discretion of patient condition before discharge to Phase II. Please call the Sedation Physician to re-evaluate and complete post-note for discharge to Phase II area. Do NOT discharge from procedure sedation or Phase 1 until post- sedation ev aluation note is complete by procedure /sedation MD Sedation Discharge Instructions to be given to the patient at discharge to home.
[2020-10-20] MEDS ORDERED: ONDANSETRON INJ 2 MG/ML 2 ML VIAL IV PRN (04:46)
[2020-10-20] MEDS ORDERED: ACETAMINOPHEN 325 MG TAB PO PRN ×2 (04:46→05:16)
[2020-10-20] MEDS ORDERED: ICU PROTOCOL FOR HYPERGLYCEMIA PRN (04:51)
[2020-10-20] MEDS ORDERED: SODIUM CHLORIDE 0.9% 1000ML 1,000 ML IV SCH (05:00)
[2020-10-20] MEDS ORDERED: MoRPHine SULFATE 2 MG/ML CARP IV PRN (05:09)
[2020-10-20] MEDS ORDERED: GLUCOSE 10 TABS/TUBE PO PRN (05:11)
[2020-10-20] MEDS ORDERED: DEXTROSE 50% 50 ML SYRINGE IV PRN (05:11)
[2020-10-20] MEDS ORDERED: GLUCAGON FOR INJ 1 MG VIAL SQ PRN (05:11)
[2020-10-20] MEDS ORDERED: CARBOHYDRATES FOR HYPOGLYCEMIA PO PRN (05:11)
[2020-10-20] MEDS ORDERED: GLUCOSE 40% GEL 15 GM TUBE PO PRN (05:11)
--- NOTE | 2020-10-20 05:12 | Cardiac Catheterization ---
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 Cardiac Status Clinical evaluation leading to the procedure CAD Presenation: STEMI Anginal Classification: CCS IV Heart Failure: No Cardiogenic Shock within 24 Hours: No Cardiac Arrest within 24 Hours: No Imaging Studies Past 6 Months: No Stress Studies Past 6 Months: No Diagnostic Physicians Name: Terence Guardado MD Status: Emergency Closure Device Percutaneous Entry Location: Radial Closure Device: Radial Band Recommendations: PCI without planned CABG PCI Indication: Immediate PCI for STEMI First Noted: First EKG Lesion Segment Name: Mid RCA Culprit Artery: Yes Stenosis Prior to Rx (%): 100 Chronic Total Occlusion: No IVUS: No FFR: No Pre-Procedure ARUN Flow: 0 Previously Treated Lesion: No Lesion Complexity: Non-High/Non-C Lesion Length (mm): 12 Thrombus Present: Yes Bifurcation Lesion: No Guidewire Across Lesion: Stenosis Post-Procedure (%): 0 Post-Procedure ARUN Flow: 3 Devices(s) Deployed: Yes Yes Intraprocedure Events Significant Disection: No Perforation: No Cardiac Cath Procedure Full Procedure Date October 20, 2020 Pre-Procedure Diagnosis Pre-Procedure Diagnosis: STEMI AUC Score AUC Score: 9 Post-Procedure Diagnosis Post-Procedure Diagnosis: Severe CAD, Successful PCI and Elevated Intracardiac Pressures Procedure(s) Performed Procedure(s) Performed: Coronary Angiography, Left Heart Cath, PTCA and Drug Eluting Stent Thermometer Production Worker Terence Guardado MD Dowel Pointer(s) Slade Estimated Blood Loss Estimated Blood Loss: 15 Medication(s) Medication(s): Fentanyl, Heparin, Lidocaine 1%, Nicardipine, Nitroglycerin and Versed Medication(s): Ticagrelor Summary of Findings Indication: STEMI/Heart Alert Access: 6Fr right radial artery Catheters: [place], JR4 guide Findings: LM -normal caliber, 20% distal disease LAD -medium caliber, mildly calcified, diffuse up to 70% proximal to mid disease extending across second diagonal. Distal vessel small and tapers prior to apex. Small first diagonal with 70% ostial stenosis. D2 without significant disease. Circumflex -medium caliber, 40% mid segment disease. Small distal vessel into small left PLB. Medium caliber OM 2 with 50% proximal stenosis. RCA -dominant, medium caliber, 100% acute earlymid RCA occlusion. Distal right PLB partially fills via [id number] collaterals. LVEDP -20 -- PCI -- Antithrombotic therapy: Heparin, ticagrelor Procedure: RCA cannulated with JR4 guide BMW wire passed across lesion into distal vessel Mid RCA lesion predilated with 2.5 compliant balloon Dilated lesion stented with 2.75 x 18 mm Chris drug-eluting stent Stent post-dilated with 3.0 noncompliant balloon IC vasodilators administered for spasm With reestablish flow noted to have severe diffuse proximal/mid disease and small right PDA Proximal/mid PDA dilated with 2.0 balloon, residual 50% stenosis Attempted to pass a 2.25 x 22 mm [place] drug-eluting stent but unable to cross pr oximal disease. Vessel small with no evidence of dissection and ARUN-3 flow. Decision made to abort further attempts at stenting. Post procedure ARUN 3 flow, stent well expanded with minimal residual stenosis and no apparent cardiac complications. Arterial Closure: TR band Summary: 1. Inferior STEMI/acute 100% earlymid RCA occlusion 2. Moderate to severe non-culprit coronary artery disease -Diffuse proximal to mid LAD disease up to 70% involving bifurcation with small D1, medium D2 40% mid circumflex, 50% proximal OM 2 Small right PDA with 80% diffuse proximal/mid disease 3. Elevated intracardiac filling pressure 4. Successful PCI of proximal to mid RCA with single drug-eluting stent (2.75 x 18 mm [place]; postdilated with 3.0 NC). 5. PTCA of small diffuse proximal to mid right PDA disease with 2.0 balloon (moderate residual stenosis). 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 Trend troponins until peak, Check Echo Uptitrate beta-tonya/ADRIAN as BP allows High-dose statin Consult cardiac Rehab Likely staged PCI of proximal to mid LAD disease later this hospitalization. Hemodynamics Rest Ao:: 119/69/98 Final Ao: 117/67/89 LV: 112/20 Recommendations Recommendations: PCI without planned CABG Specimens Specimens: None Radiation Exposure (mGy) 1302 Contrast (mls) 90 Fluids (cc crystalloids) Fluids (cc crystalloids): 100 Drains Drains: None Anesthesia Moderate Procedural Complication(s) None Disposition ICU I attest to the content of the Intraoperative Record and any orders documented therein. Any exceptions are noted below. [facility] Card Cath Procedure Codes Cardiac Catheterization Procedure 1: Cardiovascular Cath Procedures: 29933 Coronaries and LHC (+/-LV) Moderate Sedation Procedure 1: Sedation/Anesthesia: 68153 Mod Sedation by the same physician;Init15 Min Child Age 5 & Up Procedure 2: Sedation/Anesthesia: 74564 Mod Sedation by the same physician; Ea [id number] Minutes Stenting Procedure 1: Cardiovascular Stent Procedures: 67640 Perc transluminal revascularization of acute sub/total occl, aMI PG Care Time/CCT Total # of Minutes Spent Total Time Spent with Patient: Total time spent is greater than 50% in coordination of care (as documented) at patient's floor/unit and/or counseling patient:
[2020-10-20] MEDS ORDERED: GABAPENTIN 600 MG TAB PO PRN (05:16)
[2020-10-20] MEDS ORDERED: POLYETHYLENE (MIRALAX) 17 GM PACK PO PRN (05:45)
[2020-10-20 05:50] LABS: Chol HDL Ratio 4; Cholesterol 143 mg/dl (0-200); HDL Cholesterol 39 mg/dl; LDL Cholesterol Direct 87 mg/dl; Triglycerides 163 mg/dl (0-150); VLDL Cholesterol 33 mg/dl
--- NOTE | 2020-10-20 05:50 | History & Physical Report ---
Date of Service October 20, 2020 Assessment & Plan (1) ST elevation (STEMI) myocardial infarction: CAD s/p PCI: - On arrival with findings suggestive of inferior OK. - During catheterization _. - TTE AM. - Hgb A1c and lipid panel with AM labwork. - Patient started on Brillinta 90mg BID, metoprolol tartrate 12.5mg BID. Continue home lisinopril. Will start high intensity statin. Lumbar spinal stenosis: - History of, with MRI performed in _ as follows: -Extensive multilevel degenerative changes with posterior lumbar fusion at L4-5 and osseous fusion from prior fixation at L5-S1. Laminectomy defects at L1, L4, and L5. -Multilevel spinal canal stenosis most severe at T12-L1. - Undergoing evaluation for possible epidural injection in the outpatient setting. - Takes Tylenol, gabapentin, hydrocodone/acetaminophen chronically for this. - Continue home medications. HTN: - On lisinopril 10mg daily in outpatient setting. - Patient normotensive following PCI. - Continue lisinopril, metoprolol. HLD: On atorvastatin 20mg daily in outpatient setting. Increased to 80mg ddaily given STEMI. DM2: - Does not appear to be on medications outpatient for this. - Reports BSG ranges from 130-160. - A1c pending. - ICU hyperglycemia protocol, medications managed by Pharmacy while in ICU. Anxiety/Depression: - Continue home buproprion, lorazepam. Code Status: FULL CODE FEN GI: DM2 heart healthy diet DVT prophylaxis: Heparin 5000 units subcu twice daily Dispo: ICU for close monitoring following PCI for STEMI (2) Anxiety: (3) Hypercholesteremia: (4) Lumbar spinal stenosis: (5) Hypertension: (6) Diabetes: (7) Depression: (8) Hyperlipidemia: Admission and Anticipated Discharge Date Admission Date: October 20, 2020 History of Present Illness Primary Care Provider: Leatha Farrell 75 yo M PMHx HTN, DM2, HLD, lumbar spinal stenosis, anxiety, depression presented to ER via EMS for midsternal chest pain that awoke him from sleep around 12AM, described as 10/10 at its worst, with some associated lightheadedness and sensation of breathlessness. No recent illnesses, no fevers or chills, no nausea or vomiting, headaches, diarrhea. Does endorse episode of chest pain on Saturday that improved with antacids, that felt somewhat similar to the pain that awoke him this morning, however it was significantly worse this AM. Heart alert called en route to ER for noted ST elevations. He was also given aspirin 324mg en route. In ER patient was noted to have BP 200s/100s, troponin elevated to 0.229, and EKG with ST elevations in inferior leads consistent with inferior STEMI. Patient's pain improved moderately with nitroglycerin SL. Taken emergently for cardiac catheterization by Dr. Guardado. Was noted to have acute 100% RCA and had ALVAREZ x1 placed. Patient was admitted to ICU for continuous cardiac monitoring in the setting of recent PCI. Allergies Allergy/AdvReac Type Severity Reaction Status Date / Time metformin AdvReac Severe Diarrhea Verified 10/20/20 03:16 pramipexole [From Mirapex] AdvReac Unknown insomnia Verified 10/20/20 03:16 ropinirole AdvReac Unknown nasal Verified 10/20/20 03:16 congestion Home Medications Medication Instructions Recorded Confirmed Type atorvastatin 20 mg PO HS 07/26/18 10/20/20 History bupropion HCl 150 mg PO QPM 07/26/18 10/20/20 History lisinopril [Zestril] 10 mg PO QAM 07/26/18 10/20/20 History multivitamin 1 tab PO QAM 07/26/18 10/20/20 History acetaminophen 650 mg PO Q6H PRN 04/01/19 10/20/20 History ibuprofen 800 mg tablet 800 mg PO Q8H PRN 09/22/19 10/20/20 History lorazepam 1 mg tablet 1 mg PO DAILY PRN 09/22/19 10/20/20 History meloxicam 15 mg tablet 15 mg PO DAILY PRN 09/22/19 10/20/20 History ropinirole 2 mg tablet 3.5 mg PO .COMPLEX tab 11/03/19 10/20/20 History aluminum hydrox-magnesium carb 2 tab PO DIRECTED PRN 10/20/20 10/20/20 History [Gaviscon] aspirin [Aspirin Child] 324 mg PO ONCE 10/20/20 10/20/20 History gabapentin 600 mg PO TID PRN 10/20/20 10/20/20 History hydrocodone-acetaminophen 1 tab PO DIRECTED PRN 10/20/20 10/20/20 History oxybutynin chloride 5 mg PO DAILY 10/20/20 10/20/20 History turmeric 400 mg PO DAILY 10/20/20 10/20/20 History Past Med/Surg History Medical History (Updated 10/20/20 @ 15:13 by Diego Guardado MD) BPH (benign prostatic hyperplasia) Chronic back pain Depression Diabetes Hyperlipidemia Hypertension Lumbar spinal stenosis T12-L1 Osteoarthritis Restless leg syndrome Surgical History H/O hemorrhoidectomy H/O shoulder surgery History of back surgery X4 - FUSION AND DISECTOMIES History of bunionectomy of right great toe History of cholecystectomy History of tonsillectomy Family History Other Family history non-contributory Social History Smoking Status: Never smoker Second Hand Exposure: No; Hx Alcohol Use: No Hx Substance Use: Yes (has a marijuana card but doesnt use it) Preferred Language: Romanian Communication Ability: Effective Visual Impairment: No Limitations Hearing Ability: Normal Beliefs That Will Affect Care: None marital status: Current Living Situation: Spouse current occupational status: retired Feels Safe at Home: Yes Safety Concerns: Feels Safe At This Time Assistive Devices: None Review of Systems Review of Systems: All systems reviewed & are unremarkable except as noted in HPI & below Constitutional: no fever, no chills and no malaise Respiratory: no cough and no dyspnea Cardiovascular: + chest pain; no palpitations and no edema Gastrointestinal: no abdominal pain, no constipation and no diarrhea/loose stools Physical Exam Constitutional: WD/WN, vitals as above Eyes: PERRL, conjunctivae normal, anicteric sclerae ENMT: external ear and nose normal, oropharynx normal Neck: normal visual inspection Respiratory: normal respiratory effort, lungs clear to auscultation Cardiovascular: RRR, no murmur, no edema Gastrointestinal (Abdomen): normal bowel sounds, soft, nontender, no hepatosplenomegaly Musculoskeletal: no cyanosis or clubbing, extremities motor strength 5/5 Skin: no rashes, warm and dry Neurologic: AAOx3, normal speech. Bilateral UE, LE, and face without sensory or motor deficits. No tremor. Psychiatric: A+Ox3, euthymic affect Results & Data Results & Data ([facility]) Vital Signs (Past 12 Hours) Vital Signs Temp Pulse Pulse Resp BP BP Pulse Ox 10/20/20 05:39 67 13 124/72 97 10/20/20 05:24 68 19 121/84 93 10/20/20 05:12 65 24 131/73 94 10/20/20 04:49 79 23 127/77 90 10/20/20 04:45 36.4 C L 97 H 18 127/72 97 10/20/20 03:30 87 20 175/96 H 94 10/20/20 03:15 100 H 21 164/78 H 91 10/20/20 03:10 88 21 178/106 H 93 10/20/20 02:51 37.2 C 72 18 206/113 H 95 Code Status & VTE Plan VTE Prophylaxis Plan VTE Prophylaxis will be ordered: Yes Supervising Physician Co-Signing Physician Notes Attending addendum: I have physically seen this patient, have supervised the medical residents activities, and agree with the H&P unless as otherwise noted. Assessment and Plan: STEMI/heart alert/emergent cath with noted CAD and PCI in RCA/hypertension- Continue medications as per interventional cardiology Brilinta 90 mg p.o. twice daily, Toprol tartrate 12.5 mg p.o. twice daily, lisinopril 10 mg p.o. daily Check a fasting lipid panel hemoglobin A1c Change atorvastatin the high dose Diabetes mellitus- Hemoglobin A1c ICU hyperglycemic protocol Anxiety with depression- Continue bupropion and lorazepam Remaining orders and notations as noted Resident Activity Tracking Resident Involvement: Resident Care Provided Care Provided: Adult Hospital Medicine (1) Diabetes Diabetes mellitus complication detail: with polyneuropathy Diabetes mellitus complication status: with neurologic complications Diabetes mellitus assisted insulin use: without director of the biophysics facility use Diabetes mellitus type: type 2 Qualified Code(s): E11.42 - Type 2 diabetes mellitus with diabetic polyneuropathy (2) Depression Depression Type: unspecified Qualified Code(s): F32.9 - Major depressive disorder, single episode, unspecified (3) Hyperlipidemia Hyperlipidemia type: mixed hyperlipidemia Qualified Code(s): E78.2 - Mixed hyperlipidemia (4) ST elevation (STEMI) myocardial infarction Involved coronary artery: right coronary artery Qualified Code(s): I21.11 - ST elevation (STEMI) myocardial infarction involving right coronary artery (5) Hypertension Hypertension type: essential hypertension Qualified Code(s): I10 - Essential (primary) hypertension
[2020-10-20] MEDS ORDERED: ICU ELECTROLYTE REPLACEMENT PROTOCOL SCH (06:00)
--- NOTE | 2020-10-20 06:04 | Critical Care Consultation ---
Date of Consultation October 20, 2020 Assessment & Plan (1) ST elevation (STEMI) myocardial infarction: Impression: 75-year-old male presents to the ICU following cardiac cath where he was found to have 100% occlusion of the RCA and received successful PCI x1 Neuro - Lumbar stenosishistory of back surgery. Will suspend NSAIDs following ME. May continue narcotics. RLScontinue home meds Cardiac - Inferior STEMIpatient presented with elevated troponin and inferior ST elevation, found to have 100% occlusion of the RCA, now s/p PCI x1 -noted to have moderate to severe nonculprit coronary artery disease with diffuse proximal to mid LAD disease up to 70%, 40% mid circumflex, 50% proximal OM 2, small right PDA with 80% diffuse proximal mid disease -May undergo staged PCI of proximal to mid LAD disease later this hospitalization per cardiology -Loaded with Brilinta in Transportation Design Engineer -Trend troponins for peak -Follow-up echo -Continue BB, ADRIAN, statin, ASA, Brilinta regimen -Consult to cardiac rehab -Monitor in ICU on telemetry HTNMTP, lisinopril Respiratory - No history of pulmonary disease. Currently maintaining oxygen saturation on room air. Lungs clear to auscultation. Monitor with pulse ox GI - Heart healthy/diabetic diet RENAL/LYTES - Creatinine within normal limits. Maximize electrolytes. Monitor routine BMPs - Strict I's and O ENDO - DM type IIhold home oral medications and transition to sliding scale for now -ICU hyperglycemic protocol -Follow-up hemoglobin A1c History of thyroid disease HEME - H&H within normal limits ID - No indication for infectious process at this time LINES/IV ACCESS - Peripheral IVs DVT PROPHYLAXIS - SCDs, heparin Thank you for allowing us to participate in the care of this patient. Please refer to my attending physician's documentation for any further recommendations. (2) Acute ME: (3) Neuropathy: (4) Anxiety: (5) Hypercholesteremia: (6) Low back pain: (7) Lumbar disc disease: (8) Migraines, neuralgic: (9) Osteoarthritis: (10) Hypertension: (11) Diabetes: (12) Restless leg syndrome: (13) Hyperlipidemia: Supervising Physician Co-Signing Physician Notes I agree with assessment and plan of Bernardo CONTRERAS. History of Present Illness Attending Physician: Jarrell Brito MD History of Present Illness Patient is a 75-year-old male with history of type 2 diabetes, HTN, dyslipidemia, osteoarthritis, lumbar stenosis, neuropathy, RLS who presented to the emergency department early this morning with complaints of chest pain 10 out of 10 described as substernal with associated diaphoresis. Chest pain did moderately improve with sublingual nitroglycerin. Patient was noted to be significantly hypertensive and EKG revealed sinus bradycardia with inferior ST elevations. Heart alert was initiated and the patient was taken to the Transportation Design Engineer where he was found to have 100% occlusion of the RCA and received successful PCI x1. Patient now presents to the ICU post catheterization for further monitoring and management. On arrival to the ICU the patient is alert and oriented and appears comfortable at rest. He is hemodynamically stable without vasopressor support and on room air. He states that his chest pain has significantly improved from earlier and is now 0-1 out of 10. Patient states that he is mildly dizzy but this is also improved from earlier. He denies headache, recent illness or fevers, shortness of breath, palpitations, abdominal pain, nausea or vomiting or diarrhea. Allergies Allergy/AdvReac Type Severity Reaction Status Date / Time metformin AdvReac Severe Diarrhea Verified 10/20/20 03:16 pramipexole [From Mirapex] AdvReac Unknown insomnia Verified 10/20/20 03:16 ropinirole AdvReac Unknown nasal Verified 10/20/20 03:16 congestion Home Medications Medication Instructions Recorded Confirmed Type atorvastatin 20 mg PO HS 07/26/18 10/20/20 History bupropion HCl 150 mg PO QPM 07/26/18 10/20/20 History lisinopril [Zestril] 10 mg PO QAM 07/26/18 10/20/20 History multivitamin 1 tab PO QAM 07/26/18 10/20/20 History acetaminophen 650 mg PO Q6H PRN 04/01/19 10/20/20 History ibuprofen 800 mg tablet 800 mg PO Q8H PRN 09/22/19 10/20/20 History lorazepam 1 mg tablet 1 mg PO DAILY PRN 09/22/19 10/20/20 History meloxicam 15 mg tablet 15 mg PO DAILY PRN 09/22/19 10/20/20 History ropinirole 2 mg tablet 3.5 mg PO .COMPLEX tab 11/03/19 10/20/20 History aluminum hydrox-magnesium carb 2 tab PO DIRECTED PRN 10/20/20 10/20/20 History [Gaviscon] aspirin [Aspirin Child] 324 mg PO ONCE 10/20/20 10/20/20 History gabapentin 600 mg PO TID PRN 10/20/20 10/20/20 History hydrocodone-acetaminophen 1 tab PO DIRECTED PRN 10/20/20 10/20/20 History oxybutynin chloride 5 mg PO DAILY 10/20/20 10/20/20 History turmeric 400 mg PO DAILY 10/20/20 10/20/20 History Patient History Medical History BPH (benign prostatic hyperplasia) Chronic back pain Depression Diabetes Hyperlipidemia Hypertension Lumbar spinal stenosis T12-L1 Osteoarthritis Restless leg syndrome Surgical History H/O hemorrhoidectomy H/O shoulder surgery History of back surgery X4 - FUSION AND DISECTOMIES History of bunionectomy of right great toe History of cholecystectomy History of tonsillectomy Family History Other Family history non-contributory Social History Smoking Status: Never smoker Second Hand Exposure: No; Hx Alcohol Use: No Hx Substance Use: Yes (has a marijuana card but doesnt use it) Preferred Language: Burmese Communication Ability: Effective Visual Impairment: No Limitations Hearing Ability: Normal Beliefs That Will Affect Care: None marital status: Current Living Situation: Spouse current occupational status: retired Feels Safe at Home: Yes Safety Concerns: Feels Safe At This Time Assistive Devices: Glasses Review of Systems Review of Systems: All systems reviewed & are unremarkable except as noted in HPI & below Physical Exam Constitutional: cooperative and comfortable; no acute distress Eyes: PERRL, conjunctivae normal, anicteric sclerae ENMT: external ear and nose normal, oropharynx normal Neck: trachea midline, no thyromegaly Respiratory: normal respiratory effort, lungs clear to auscultation Cardiovascular: RRR, no murmur, no edema Heart Sounds: normal S1 and normal S2 Vessels: no JVD Extremities: normal capillary refill; no edema Gastrointestinal (Abdomen): normal bowel sounds, soft, nontender, no hepatosplenomegaly Skin: no rashes, warm and dry Neurologic: PERRL, EOMI, accommodation nl, no face palsy, no dysarthria Psychiatric: A+Ox3, euthymic affect Results & Data Results & Data ([facility]) Vital Signs (Past 12 Hours) Vital Signs Temp Pulse Pulse Resp BP BP Pulse Ox 10/20/20 05:24 68 19 121/84 93 10/20/20 05:12 65 24 131/73 94 10/20/20 04:49 79 23 127/77 90 10/20/20 04:45 36.4 C L 97 H 18 127/72 97 10/20/20 03:30 87 20 175/96 H 94 10/20/20 03:15 100 H 21 164/78 H 91 10/20/20 03:10 88 21 178/106 H 93 10/20/20 02:51 37.2 C 72 18 206/113 H 95 Coding Level of Care Code 04201 Inpt Consult Level [address] elevation (STEMI) myocardial infarction I21.11 Involved coronary artery: right coronary artery Acute ME I21.9 Neuropathy G62.9 Anxiety F41.9 Hypercholesteremia E78.00 Low back pain M54.5 Lumbar disc disease M51.9 Migraines, neuralgic G44.009 Osteoarthritis M19.90 Hypertension I10 Hypertension type: essential hypertension Diabetes E11.42 Diabetes mellitus complication detail: with polyneuropathy Diabetes mellitus complication status: with neurologic complications Diabetes mellitus intermediate accountant insulin use: without mcfp use Diabetes mellitus type: type 2 Restless leg syndrome G25.81 Hyperlipidemia E78.2 Hyperlipidemia type: mixed hyperlipidemia (1) Diabetes Diabetes mellitus complication detail: with polyneuropathy Diabetes mellitus complication status: with neurologic complications Diabetes mellitus mcfp insulin use: without mcfp use Diabetes mellitus type: type 2 Qualified Code(s): E11.42 - Type 2 diabetes mellitus with diabetic polyneuropathy (2) Hyperlipidemia Hyperlipidemia type: mixed hyperlipidemia Qualified Code(s): E78.2 - Mixed hyperlipidemia (3) ST elevation (STEMI) myocardial infarction Involved coronary artery: right coronary artery Qualified Code(s): I21.11 - ST elevation (STEMI) myocardial infarction involving right coronary artery (4) Hypertension Hypertension type: essential hypertension Qualified Code(s): I10 - Essential (primary) hypertension
--- NOTE | 2020-10-20 06:47 | XRay Report ---
XR chest 1V portable HISTORY: 75 years-old Male Chest pain acute atypical chest pain COMPARISON: Chest radiographs 11/07/2018 TECHNIQUE: Portable AP view of the chest FINDINGS: Cardiac silhouette is mildly enlarged. Calcified plaque of the thoracic aorta. Mild chronic interstit ial coarsening with linear right basilar densities. No pneumothorax or pleural effusion. A lead is no obi overlying the right hemithorax. Degenerative changes of the shoulders and spine. IMPRESSION: 1. Cardiomegaly without overt pulmonary edema. 2. Mild subsegmental right basilar atelectasis. ACT 112: Negative or not required by law. The above report was generated using voice recognition software. It may contain grammatical, syntax o r spelling errors. Electronically signed by: Power Mancini M.D. 10/20/2020 6:46 AM
[2020-10-20] MEDS: INSULIN ASPART 100 UNITS/ML 3 ML PEN SC SCH ×4 (07:46→20:36)
[2020-10-20] MEDS: ASPIRIN 81 MG ECTAB PO SCH (07:51)
[2020-10-20] MEDS: ATORVASTATIN 40 MG TAB PO SCH (07:52)
[2020-10-20] MEDS: MULTIVITAMIN TAB PO SCH (07:52)
[2020-10-20] MEDS ORDERED: lisinopril 5 MG TAB PO SCH (09:00)
[2020-10-20] MEDS ORDERED: ICU PROTOCOL FOR HYPERGLYCEMIA SCH (09:00)
[2020-10-20] MEDS ORDERED: METOPROLOL TARTRATE 25 MG TAB PO SCH (09:00)
[2020-10-20] MEDS: HEPARIN SOD 5,000 UNIT/0.5 ML VIAL SQ SCH ×2 (09:12→20:34)
--- NOTE | 2020-10-20 09:40 | XCELERA ---
[id number] \\[id number]
[2020-10-20] MEDS ORDERED: POTASSIUM CHLORIDE CRTAB 20 MEQ TABCR PO STA (10:04)
--- NOTE | 2020-10-20 10:49 | Hospitalist Progress Note ---
Date of Service October 20, 2020 Assessment & Plan (1) ST elevation (STEMI) myocardial infarction: Lopez Zafar is a 75 yo male with h/o HTN, T2DM, HLD, lumbar spinal stenosis and anxiety/depression who was admitted for chest pain due to inferior STEMI - s/p PCI (ALVAREZ to RCA) on 10/20/2020. CAD s/p PCI - h/o recent angina symptoms, presented with inferior STEMI, s/p PCI (ALVAREZ to RCA) on 10/20/2020 - TTE: LVEF 40% with interior/inferoseptal hypokinesis-akinesis - Troponin 0.229 --> 93.7, continue to trend to peak - Dr. Guardado following: staged PCI or LAD tomorrow in the AM - received Brilinta loading dose prior to PCI and transitioned to 90mg PO BID today - continue - continue baby Aspirin + Brilinta for at least 1 year - increase Lisinopril to 10mg, increase Lopressor to 25mg PO BID - continue Atorvastatin 80 mg PO QHS - PRN EKG chest pain HTN - Increased Lisinopril/Lopressor as above, continue to titrate as tolerated HLD - Continue Atorvastatin at 80 mg PO QHS T2DM - no home meds, BSG ranges from 130-160, A1c pending (last was 6.7 in 01/2020) - ICU hyperglycemia protocol, medications managed by pharmacy while in ICU. Lumbar spinal stenosis - Continue home meds: Tylenol, gabapentin - PRN Morphine 2mg IV Q3H for breakthrough pain Anxiety/Depression - Continue home bupropion, lorazepam Code Status: FULL CODE FEN/GI: DM2/heart healthy, NPO at midnight for PCI DVT ppx: Heparin 5000 units SQ Q12H Dispo: ICU (2) Anxiety: (3) Hypercholesteremia: (4) Lumbar spinal stenosis: (5) Hypertension: (6) Diabetes: (7) Depression: (8) Hyperlipidemia: Admission and Anticipated Discharge Date Admission Date: October 20, 2020 Supervising Physician Co-Signing Physician Notes I personally examined the patient and verified all stacy points of history and exam, discussed case, and agree with decision making with Dr Burrows. Feeling somewhat stir crazy, and notes that he has not slept well for the last couple nights. After discussion of risks and benefits, he is definitely willing to stay. In discussion of lifestyle, he eats reasonably well, a little bit of excess of simple and starchy carbohydrates, in terms of exercise he does not do any regular or deliberate exercise. Vitals noted, in general he is awake and alert pleasant no distress. HEENT normocephalic atraumatic mucous membranes moist. Breathing unlabored no accessory muscles, gait is normal mental status is intact. STEMImedication management, lifestyle change. Likely for further stenting in the near future. Otherwise as above. Subjective See H&P for HPI Review of Systems Review of Systems: See H&P for ROS Physical Exam Physical Exam: See H&P for PE Results & Data Results & Data ([place]) Vital Signs (Past 12 Hours) Vital Signs Temp Pulse Pulse Resp BP BP Pulse Ox 10/20/20 09:00 84 20 139/70 94 10/20/20 08:00 77 20 143/100 H 96 10/20/20 07:00 37.3 C 76 84 19 154/97 H 154/97 H 97 10/20/20 06:42 77 19 149/108 H 97 10/20/20 06:11 75 23 134/82 98 10/20/20 05:39 67 13 124/72 97 10/20/20 05:24 68 19 121/84 93 10/20/20 05:12 65 24 131/73 94 10/20/20 04:49 79 23 127/77 90 10/20/20 04:45 36.4 C L 97 H 18 127/72 97 10/20/20 03:30 87 20 175/96 H 94 10/20/20 03:15 100 H 21 164/78 H 91 10/20/20 03:10 88 21 178/106 H 93 10/20/20 02:51 37.2 C 72 18 206/113 H 95 Resident Activity Tracking Resident Involvement: Resident Care Provided Care Provided: Adult Hospital Medicine (1) Diabetes Diabetes mellitus complication detail: with polyneuropathy Diabetes mellitus complication status: with neurologic complications Diabetes mellitus rn long term care insulin use: without jail use Diabetes mellitus type: type 2 Qualified Code(s): E11.42 - Type 2 diabetes mellitus with diabetic polyneuropathy (2) Depression Depression Type: unspecified Qualified Code(s): F32.9 - Major depressive disorder, single episode, unspecified (3) Hyperlipidemia Hyperlipidemia type: mixed hyperlipidemia Qualified Code(s): E78.2 - Mixed hyperlipidemia (4) ST elevation (STEMI) myocardial infarction Involved coronary artery: right coronary artery Qualified Code(s): I21.11 - ST elevation (STEMI) myocardial infarction involving right coronary artery (5) Hypertension Hypertension type: essential hypertension Qualified Code(s): I10 - Essential (primary) hypertension
[2020-10-20] MEDS: rOPINIRole HCL 1 MG TABLET PO SCH (13:05)
[2020-10-20] MEDS ORDERED: LORazepam 0.5 MG TAB PO PRN (13:41)
[2020-10-20] MEDS ORDERED: LORazepam 1 MG TAB PO PRN (13:51)
--- NOTE | 2020-10-20 15:18 | Cardiology Progress Note ---
Date of Service October 20, 2020 Assessment & Plan (1) CAD (coronary artery disease): -Inferior STEMIpost primary PCI with ALVAREZ to proximal mid RCA, angioplasty to proximal PDA Severe residual nonculprit disease, 70% proximal to mid LAD 2. Ischemic cardiomyopathyEF 40% with inferior hypokinesis to akinesis 3. Moderate mitral regurgitation 4. Hypertension 5. Dyslipidemia 6. Type 2 diabetes Chest pain-free, hemodynamically and electrically stable. No access site complications. Well-perfused without congestion on exam Trend troponin until peak. Continue to monitor on telemetry. Plan to continue DAPT with aspirin, ticagrelor Increase metoprolol to 25 mg twice daily, increase lisinopril to 10 mg daily Continue current statin Plan for staged PCI of LAD tomorrow morning. Admission and Anticipated Discharge Date Admission Date: October 20, 2020 Subjective Seen this morning. Denied any chest pain. No significant shortness of breath. Up walking around his room. Telemetry reviewedno ventricular ectopy Review of Systems Review of Systems: All systems reviewed & are unremarkable except as noted in HPI & below Physical Exam Physical Exam: General: Comfortable HEENT: Sclerae anicteric Lungs: Clear to auscultation bilaterally Cardiac: Regular rate and rhythm, 2/6 holosystolic murmur at the apex. No JVD Vascular: Right radial artery access site with no ecchymosis, hematoma. Distal pulse and sensation intact. Abdomen: Soft, nontender Extremities: Well perfused, no peripheral edema Neuro: Nonfocal Psych: Alert orient x3, normal affect and mood Results & Data ([facility]) Vital Signs (Past 12 Hours) Vital Signs Temp Pulse Pulse Resp BP BP Pulse Ox 10/20/20 11:43 97.5 F L 10/20/20 09:00 84 20 139/70 94 10/20/20 08:00 77 20 143/100 H 96 10/20/20 07:00 99.1 F 76 84 19 154/97 H 154/97 H 97 10/20/20 06:42 77 19 149/108 H 97 10/20/20 06:11 75 23 134/82 98 10/20/20 05:39 67 13 124/72 97 10/20/20 05:24 68 19 121/84 93 10/20/20 05:12 65 24 131/73 94 10/20/20 04:49 79 23 127/77 90 10/20/20 04:45 97.5 F L 97 H 18 127/72 97 10/20/20 03:30 87 20 175/96 H 94 10/20/20 03:15 100 H 21 164/78 H 91 10/20/20 03:10 88 21 178/106 H 93 10/20/20 02:51 99.0 F 72 18 206/113 H 95 PG Care Time/CCT Total # of Minutes Spent Total Time Spent with Patient: Total time spent is greater than 50% in coordination of care (as documented) at patient's floor/unit and/or counseling patient: Coding Level of Care Code None Diagnoses CAD (coronary artery disease) I25.10
[2020-10-20] MEDS ORDERED: lisinopril 5 MG TAB PO ONE (16:45)
--- NOTE | 2020-10-20 17:43 | Billing Data ---
Date of Service October 20, 2020 Coding Level of Care Code 96741 Subseq Hosp Care Lvl 3
--- NOTE | 2020-10-20 20:01 | Billing Data ---
Date of Service October 20, 2020 Coding Level of Care Code 23276 Initial Inpt Care Lvl 3
[2020-10-20] MEDS: TICAGRELOR 90 MG TAB PO SCH (20:36)
[2020-10-20] MEDS: METOPROLOL TARTRATE 25 MG TAB PO SCH (20:38)
[2020-10-20] MEDS ORDERED: buPROPion HCl 75 MG TABLET PO SCH (21:00)
[2020-10-20] MEDS ORDERED: LORazepam 0.5 MG TAB PO STA (22:53)
[2020-10-20] MEDS ORDERED: MELATONIN 3 MG TAB PO PRN (22:53)
[2020-10-21 04:44] LABS: Basophils # (auto) 0.01 K/uL (0-0.2); Basophils % (auto) 0.1 %; Eosinophils # (auto) 0.34 K/uL (0-0.5); Eosinophils % (auto) 3.6 %; Hematocrit (blood only) 44.2 % (42-52); Hemoglobin 14.9 g/dL (14.0-18.0); Immature Granulocytes # (auto) 0.03 K/uL (0.00-0.02); Immature Granulocytes % (auto) 0.3 %; Lymphocytes % (auto) 24.5 %; Mean Corpuscular Hemoglobin 29.9 pg (25-34); Mean Corpuscular Hgb Conc 33.7 g/dL (32-36); Mean Corpuscular Volume 88.8 fL (80-100); Mean Platelet Volume 11.1 fL (7.4-10.4); Monocytes # (auto) 1.29 K/uL (0.11-0.59); Monocytes % (auto) 13.7 %; Neutrophils # (auto) 5.43 K/uL (1.4-6.5); Neutrophils % (auto) 57.8 %; Platelet Count 162 K/uL (130-400); RDW Coefficient of Variation 13.6 % (11.5-14.5); Red Blood Count 4.98 M/uL (4.7-6.1)
[2020-10-21 05:19] LABS: BUN Creatinine Ratio 20.1 (10-20); Calcium 8.8 mg/dl (8.5-10.1); Creatinine Clr Calc Pharmacy 77.5 ml/min; Est GFR (African American) 99.2; Est GFR (Non-African American) 85.6; Magnesium 2.4 mg/dl (1.8-2.4); Phosphorus 3.4 mg/dl (2.5-4.9); Potassium 4.1 mmol/L (3.5-5.1)
--- NOTE | 2020-10-21 05:49 | Electrocardiogram Report ---
Test Reason : Blood Pressure : / mmHG Vent. Rate : 087 BPM Atrial Rate : 087 BPM P-R Int : 176 ms QRS Dur : 098 ms QT Int : 368 ms P-R-T Axes : 067 071 097 degrees QTc Int : 442 ms Sinus rhythm with occasional Premature ventricular complexes Possible Left atrial enlargement Anteroseptal infarct (cited on or before 20-OCT-2020) Inferior injury pattern ACUTE [place] / STEMI Consider right ventricular involvement in acute inferior infarct Abnormal ECG When compared with ECG of 26-JUL-2018 13:22, Premature ventricular complexes are now Present ST elevation now present in Inferior leads ST now depressed in Lateral leads Confirmed by Andre James ([id number]) on 10/21/2020 5:49:43 AM Referred By: REFERRED SELF Confirmed By:Andre James
--- NOTE | 2020-10-21 05:51 | Electrocardiogram Report ---
Test Reason : Blood Pressure : / mmHG Vent. Rate : 076 BPM Atrial Rate : 076 BPM P-R Int : 204 ms QRS Dur : 072 ms QT Int : 394 ms P-R-T Axes : 064 051 016 degrees QTc Int : 443 ms Sinus rhythm with sinus arrhythmia with occasional Premature ventricular complexes Possible Left atrial enlargement Anteroseptal infarct (cited on or before 20-OCT-2020) Inferior injury pattern ACUTE [place] / STEMI Abnormal ECG When compared with ECG of 20-OCT-2020 02:59, QRS duration has decreased Serial changes of evolving Inferior infarct Present Confirmed by Andre James ([id number]) on 10/21/2020 5:51:22 AM Referred By: REFERRED SELF Confirmed By:Andre James
--- NOTE | 2020-10-21 06:02 | Electrocardiogram Report ---
Test Reason : Blood Pressure : / mmHG Vent. Rate : 073 BPM Atrial Rate : 073 BPM P-R Int : 198 ms QRS Dur : 072 ms QT Int : 402 ms P-R-T Axes : 070 -15 048 degrees QTc Int : 442 ms Sinus rhythm with occasional Premature ventricular complexes Low voltage QRS Inferior infarct , possibly acute Cannot rule out Anteroseptal infarct (cited on or before 20-OCT-2020) ST elevation, consider inferior injury pattern Abnormal ECG When compared with ECG of 20-OCT-2020 04:50, Serial changes of evolving Inferior infarct Present Confirmed by Andre James ([id number]) on 10/21/2020 6:01:58 AM Referred By: REFERRED SELF Confirmed By:Andre James
[2020-10-21 06:21] LABS: Estimated Average Glucose 140 mg/dl; Hemoglobin A1C 6.5 % (4.5-5.6)
--- NOTE | 2020-10-21 06:44 | Hospitalist Progress Note ---
Date of Service October 21, 2020 Assessment & Plan (1) ST elevation (STEMI) myocardial infarction: Lopez Zafar is a 75 yo male with h/o HTN, T2DM, HLD, lumbar spinal stenosis and anxiety/depression who was admitted for chest pain due to inferior STEMI - s/p PCI (ALVAREZ to RCA) on 10/20/2020. CAD s/p PCI - h/o recent angina symptoms, presented with inferior STEMI, s/p PCI (ALVAREZ to RCA) on 10/20/2020 and staged PCI (ALVAREZ to LAD) on 10/21/2020 - Dr. Guardado continuing to follow - continue baby Aspirin + Brilinta for at least 1 year - continue Lisinopril 10mg daily and Lopressor 25mg PO BID, continue to titrate as tolerated - continue Atorvastatin 80 mg PO QHS - PRN EKG chest pain HTN - Lisinopril/Lopressor as above, continue to titrate as tolerated HLD - Continue Atorvastatin at 80 mg PO QHS T2DM - no home meds, BSG ranges from 130-160, A1c 6.5 - ICU hyperglycemia protocol, medications managed by pharmacy while in ICU. Lumbar spinal stenosis - Continue home meds: Tylenol, gabapentin - PRN Morphine 2mg IV Q3H for breakthrough pain Anxiety/Depression - Continue home bupropion, lorazepam Restless Leg Syndrome - continue home Ropinirole Code Status: FULL CODE FEN/GI: DM2/heart healthy DVT ppx: Heparin 5000 units SQ Q12H Dispo: ICU (2) Anxiety: (3) Hypercholesteremia: (4) Lumbar spinal stenosis: (5) Hypertension: (6) Diabetes: (7) Depression: (8) Hyperlipidemia: Admission and Anticipated Discharge Date Admission Date: October 20, 2020 Subjective No acute events overnight. This morning denies chest pain/palpitations, SOB, cough, N/V, diarrhea, abdominal pain. 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 Review of Systems Review of Systems: Pertinent positives and negatives mentioned in HPI. Physical Exam Physical Exam: General: A&Ox3. NAD. Cooperative. HEENT: Atraumatic, normocephalic. Pulm: CTAB A&P. -wheezes, -rales, -rhonchi. Symmetrical chest rise. No increase work of breathing. No respiratory distress. Cardiac: RRR, -mrg. Radial pulses intact and symmetrical. Right radial entry sit e with overlying dressing c/d/i - no bruit on palpation Abdominal: soft, non-tender, non-distended, BS x 4 Results & Data Results & Data ([facility]) Vital Signs (Past 12 Hours) Vital Signs Temp Pulse Pulse Resp BP Pulse Ox 10/21/20 03:15 36.4 C L 78 19 138/95 95 10/20/20 23:35 74 Resident Activity Tracking Resident Involvement: Resident Care Provided Care Provided: Adult Hospital Medicine (1) Diabetes Diabetes mellitus complication detail: with polyneuropathy Diabetes mellitus complication status: with neurologic complications Diabetes mellitus mcfp insulin use: without mcfp use Diabetes mellitus type: type 2 Qualified Code(s): E11.42 - Type 2 diabetes mellitus with diabetic polyneuropathy (2) Depression Depression Type: unspecified Qualified Code(s): F32.9 - Major depressive disorder, single episode, unspecified (3) Hyperlipidemia Hyperlipidemia type: mixed hyperlipidemia Qualified Code(s): E78.2 - Mixed hyperlipidemia (4) ST elevation (STEMI) myocardial infarction Involved coronary artery: right coronary artery Qualified Code(s): I21.11 - ST elevation (STEMI) myocardial infarction involving right coronary artery (5) Hypertension Hypertension type: essential hypertension Qualified Code(s): I10 - Essential (primary) hypertension
[2020-10-21] MEDS: ATORVASTATIN 40 MG TAB PO SCH (08:01)
[2020-10-21] MEDS: ASPIRIN 81 MG ECTAB PO SCH (08:01)
[2020-10-21] MEDS: TICAGRELOR 90 MG TAB PO SCH ×2 (08:02→18:36)
[2020-10-21] MEDS: INSULIN ASPART 100 UNITS/ML 3 ML PEN SC SCH ×3 (08:02→16:34)
[2020-10-21] MEDS: HEPARIN SOD 5,000 UNIT/0.5 ML VIAL SQ SCH (08:03)
[2020-10-21] MEDS: METOPROLOL TARTRATE 25 MG TAB PO SCH ×2 (08:03→18:36)
[2020-10-21] MEDS: MULTIVITAMIN TAB PO SCH (08:03)
[2020-10-21] MEDS ORDERED: lisinopril 10 MG TAB PO SCH (09:00)
[2020-10-21] MEDS: rOPINIRole HCL 1 MG TABLET PO SCH (11:36)
[2020-10-21] MEDS ORDERED: HEPARIN (PORCINE) 1000 UNIT/ML 10 ML (CATH LAB USE ONLY) ONE (13:16)
[2020-10-21] MEDS ORDERED: NITROGLYCERIN/D5W 100MCG/ML 20ML SYR ONE (13:16)
[2020-10-21] MEDS ORDERED: MIDAZOLAM HCL 1 MG/ML 2ML VIAL ONE ×2 (13:16→14:14)
[2020-10-21] MEDS ORDERED: niCARdipine HCL INJ 2.5 MG/ML 10 ML AMP ONE (13:16)
[2020-10-21] MEDS: fentaNYL citrate 100 MCG/2 ML VIAL ONE ×2 (15:05→15:08)
--- NOTE | 2020-10-21 15:25 | Post Anesthesia Assessment ---
Date of Service October 21, 2020 Post Sedation Assessment Vital Signs Temp Pulse Pulse Pulse Resp BP BP 10/21/20 15:20 80 17 125/87 10/21/20 15:05 82 17 143/88 H 10/21/20 11:33 97.9 F 61 16 106/64 10/21/20 08:13 97.7 F 10/21/20 08:10 72 12 10/21/20 08:00 98.1 F 70 67 8 L 113/74 10/21/20 07:57 73 10 L 113/74 10/21/20 07:50 75 12 10/21/20 07:40 82 8 L 10/21/20 07:30 80 17 10/21/20 07:20 79 9 L 10/21/20 07:10 74 20 10/21/20 07:00 75 7 L 10/21/20 06:50 82 19 10/21/20 06:40 70 7 L 10/21/20 06:31 68 19 10/21/20 06:30 77 9 L 138/95 10/21/20 06:20 100 H 22 10/21/20 06:10 74 25 H 10/21/20 06:00 79 28 H 10/21/20 05:50 81 17 10/21/20 05:40 78 20 10/21/20 05:30 83 35 H 10/21/20 05:20 82 22 10/21/20 05:10 85 18 10/21/20 05:00 78 33 H 10/21/20 04:50 83 17 10/21/20 04:40 74 16 10/21/20 04:30 81 26 H 10/21/20 04:20 72 35 H 10/21/20 04:10 93 H 12 10/21/20 04:00 81 10/21/20 03:50 84 28 H 10/21/20 03:40 19 10/21/20 03:30 63 21 10/21/20 03:20 61 32 H 10/21/20 03:15 97.5 F L 78 19 138/95 10/21/20 03:10 58 L 27 H 10/21/20 03:00 97 H 17 10/21/20 02:50 69 29 H 10/21/20 02:40 61 30 H 10/21/20 02:30 65 41 H 10/21/20 02:20 61 33 H 10/21/20 02:10 60 28 H 10/21/20 02:00 59 L 26 H 10/21/20 01:50 58 L 33 H 10/21/20 01:40 64 44 H 10/21/20 01:30 68 21 10/21/20 01:20 56 L 27 H 10/21/20 01:10 56 L 25 H 10/21/20 01:00 78 25 H 10/21/20 00:50 73 17 10/21/20 00:40 72 25 H 10/21/20 00:30 14 10/21/20 00:20 81 46 H 10/20/20 23:35 74 10/20/20 16:06 98.1 F 71 18 179/85 H Pulse Ox 10/21/20 15:20 95 10/21/20 15:05 95 10/21/20 11:33 95 10/21/20 08:13 10/21/20 08:10 10/21/20 08:00 96 10/21/20 07:57 96 10/21/20 07:50 10/21/20 07:40 10/21/20 07:30 10/21/20 07:20 10/21/20 07:10 10/21/20 07:00 10/21/20 06:50 10/21/20 06:40 10/21/20 06:31 95 10/21/20 06:30 10/21/20 06:20 10/21/20 06:10 10/21/20 06:00 10/21/20 05:50 10/21/20 05:40 10/21/20 05:30 10/21/20 05:20 10/21/20 05:10 10/21/20 05:00 10/21/20 04:50 10/21/20 04:40 10/21/20 04:30 10/21/20 04:20 10/21/20 04:10 10/21/20 04:00 10/21/20 03:50 10/21/20 03:40 10/21/20 03:30 10/21/20 03:20 10/21/20 03:15 95 10/21/20 03:10 10/21/20 03:00 10/21/20 02:50 10/21/20 02:40 10/21/20 02:30 10/21/20 02:20 10/21/20 02:10 10/21/20 02:00 10/21/20 01:50 10/21/20 01:40 10/21/20 01:30 10/21/20 01:20 10/21/20 01:10 10/21/20 01:00 10/21/20 00:50 10/21/20 00:40 10/21/20 00:30 10/21/20 00:20 10/20/20 23:35 10/20/20 16:06 95 Recovery Score Activity: Moves 4 extremities Respiration: Deep Breath/Cough Circulation: +/-20% PreAnes Value Consciousness: Fully Awake Oxygen Saturation: > 92% On Room Air Post Anesthesia Score: 10 Discharge Sedation Level of Care: Fast Track Phase II Post Sedation Plan On clinical assessment, the patient appears to have tolerated the sedation without complications. Patient is recovering as anticipated. Patient will continue to be monitored by nursing and may be discharged when sedation discharge criteria are met per below protocol. Upon Completions of procedure up to 15 minutes continue every 5 minute vital signs and the P.A.R. score; then discharge to a Phase I or Fast Track to Phase II per the following guidelines: * Discharge Patient to appropriate Phase II area if PAR is 8 or greater or return to pre- procedure baseline. The post - procedure orders will be as directed. * If PAR score is less than 8 or not return to pre-procedure baseline then patient will follow Phase I monitoring till PAR is reached for Phase II. The Phase I may be done in procedure room or may call to secure a Phase I area. * If naloxone or flumazenil are used for reversal, hold in Phase I for continued monitoring from when last reversal dose was given for a minimum of 60 minutes or longer pending the nurse and/or physician discretion of patient condition before discharge to Phase II. Please call the Sedation Physician to re-evaluate and complete post-note for discharge to Phase II area. Do NOT discharge from procedure sedation or Phase 1 until post- sedation evaluation note is complete by procedure /sedation MD Sedation Discharge Instructions to be given to the patient at discharge to home.
--- NOTE | 2020-10-21 15:25 | Pre Anesthesia Assessment ---
Date of Service October 21, 2020 Pre Sedation Assessment Vital Signs Temp Pulse Pulse Pulse Resp BP BP 10/21/20 15:05 82 17 143/88 H 10/21/20 11:33 97.9 F 61 16 106/64 10/21/20 08:13 97.7 F 10/21/20 08:10 72 12 10/21/20 08:00 98.1 F 70 67 8 L 113/74 10/21/20 07:57 73 10 L 113/74 10/21/20 07:50 75 12 10/21/20 07:40 82 8 L 10/21/20 07:30 80 17 10/21/20 07:20 79 9 L 10/21/20 07:10 74 20 10/21/20 07:00 75 7 L 10/21/20 06:50 82 19 10/21/20 06:40 70 7 L 10/21/20 06:31 68 19 10/21/20 06:30 77 9 L 138/95 10/21/20 06:20 100 H 22 10/21/20 06:10 74 25 H 10/21/20 06:00 79 28 H 10/21/20 05:50 81 17 10/21/20 05:40 78 20 10/21/20 05:30 83 35 H 10/21/20 05:20 82 22 10/21/20 05:10 85 18 10/21/20 05:00 78 33 H 10/21/20 04:50 83 17 10/21/20 04:40 74 16 10/21/20 04:30 81 26 H 10/21/20 04:20 72 35 H 10/21/20 04:10 93 H 12 10/21/20 04:00 81 10/21/20 03:50 84 28 H 10/21/20 03:40 19 10/21/20 03:30 63 21 10/21/20 03:20 61 32 H 10/21/20 03:15 97.5 F L 78 19 138/95 10/21/20 03:10 58 L 27 H 10/21/20 03:00 97 H 17 10/21/20 02:50 69 29 H 10/21/20 02:40 61 30 H 10/21/20 02:30 65 41 H 10/21/20 02:20 61 33 H 10/21/20 02:10 60 28 H 02/05/21 02:00 59 L 26 H 10/21/20 01:50 58 L 33 H 10/21/20 01:40 64 44 H 10/21/20 01:30 68 21 10/21/20 01:20 56 L 27 H 10/21/20 01:10 56 L 25 H 10/21/20 01:00 78 25 H 10/21/20 00:50 73 17 10/21/20 00:40 72 25 H 10/21/20 00:30 14 10/21/20 00:20 81 46 H 10/20/20 23:35 74 10/20/20 16:06 98.1 F 71 18 179/85 H Pulse Ox 10/21/20 15:05 95 10/21/20 11:33 95 10/21/20 08:13 10/21/20 08:10 10/21/20 08:00 96 10/21/20 07:57 96 10/21/20 07:50 10/21/20 07:40 10/21/20 07:30 10/21/20 07:20 10/21/20 07:10 10/21/20 07:00 10/21/20 06:50 10/21/20 06:40 10/21/20 06:31 95 10/21/20 06:30 10/21/20 06:20 10/21/20 06:10 10/21/20 06:00 10/21/20 05:50 10/21/20 05:40 10/21/20 05:30 10/21/20 05:20 10/21/20 05:10 10/21/20 05:00 10/21/20 04:50 10/21/20 04:40 10/21/20 04:30 10/21/20 04:20 10/21/20 04:10 10/21/20 04:00 10/21/20 03:50 10/21/20 03:40 10/21/20 03:30 10/21/20 03:20 10/21/20 03:15 95 10/21/20 03:10 10/21/20 03:00 10/21/20 02:50 10/21/20 02:40 10/21/20 02:30 10/21/20 02:20 10/21/20 02:10 10/21/20 02:00 10/21/20 01:50 10/21/20 01:40 10/21/20 01:30 10/21/20 01:20 10/21/20 01:10 10/21/20 01:00 10/21/20 00:50 10/21/20 00:40 10/21/20 00:30 10/21/20 00:20 10/20/20 23:35 10/20/20 16:06 95 Cardiovascular RRR, no murmur, no edema Respiratory normal respiratory effort, lungs clear to auscultation Pre-Sedation Airway Assessment Smoking Status: Never smoker Hx Sleep Apnea: No Hx Difficult Intubation: No Short, Thick Neck: No Thyromental Distance: > or= 3.5 Finger Breadths Oral Cavity: + WNL Mallampati Class: II ASA: ASA3 NPO Status Date of Last Intake of Fluids: 10/21/20 Time of Last Intake of Fluids: 07:30 Date of Last Intake of Solid Food: 10/20/20 Time of Last Intake of Solid Foods: 19:00 Procedure Planning Contraindications for Sedation: none Current Medications Reviewed: Yes Notes The planned sedation has been discussed with the patient. Informed Consent was obtained. I have identified the patient, determined the appropriateness of sedation and have assessed the patient immediately prior to the procedure. All medicine(s) and interventions are by my order.
--- NOTE | 2020-10-21 15:32 | Post Operative Brief Note ---
Cardiology Brief Post Op Date of Surgery October 21, 2020 Pre & Post Diagnosis Coronary artery disease Procedure PCI to LAD Assistant Auto Center Manager Terence Guardado MD Shuttle Driver Ilia Estimated Blood Loss 10 Findings See Below PCI to LAD PTCA to D1 Specimens Specimen Description: -- Drains Other (--) Anesthesia Type RN Sedation Complications none Disposition Accompanied Patient To Recovery: No Disposition: Surgical ICU Overlapping Procedure I was present for: the critical portions of procedure. I was immediately available: during the entire case. Back up surgeon: was not required during procedure.
--- NOTE | 2020-10-21 16:27 | Cardiac Catheterization ---
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 Cardiac Status Clinical evaluation leading to the procedure CAD Presenation: STEMI Anginal Classification: CCS IV Heart Failure: NYHA Class: CCS II Cardiogenic Shock within 24 Hours: No Cardiac Arrest within 24 Hours: No Imaging Studies Past 6 Months: Yes Stress Studies Past 6 Months: No Diagnostic Physicians Name: Terence Guardado MD Status: Elective Closure Device Percutaneous Entry Location: Radial Closure Device: Radial Band Recommendations: PCI without planned CABG PCI Indication: Staged PCI Lesion Segment Name: proximal LAD Culprit Artery: Yes Stenosis Prior to Rx (%): 100 Chronic Total Occlusion: No IVUS: No FFR: No Pre-Procedure ARUN Flow: 0 Previously Treated Lesion: No Lesion Complexity: High/C Lesion Length (mm): 23 Thrombus Present: No Bifurcation Lesion: Yes Guidewire Across Lesion: Stenosis Post-Procedure (%): 0 Post-Procedure ARUN Flow: 3 Devices(s) Deployed: Yes Yes Intraprocedure Events Significant Disection: No Perforation: No Cardiac Cath Procedure Full Procedure Date October 21, 2020 Pre-Procedure Diagnosis Pre-Procedure Diagnosis: CAD AUC Score AUC Score: 7 Post-Procedure Diagnosis Post-Procedure Diagnosis: Severe CAD, Successful PCI and Normal Intracardiac Pressures Procedure(s) Performed Procedure(s) Performed: Coronary Angiography, Left Heart Cath and Drug Eluting Stent Pickling Drum Operator Terence Guardado MD Medical Director(s) Ilia Estimated Blood Loss Estimated Blood Loss: 15 Medication(s) Medication(s): Fentanyl, Heparin, Lidocaine 1%, Nicardipine, Nitroglycerin and Versed Medication(s): Ticagrelor Summary of Findings Indication: Staged PCI of LAD Access: 6 Fr right radial artery Catheters: EBU 3.5 guide Patient brought back today for staged PCI of LAD. Previously underwent PCI to proximal RCA for inferior STEMI on 10/20/2020. -- PCI -- Antithrombotic therapy: Heparin, ticagrelor Procedure: Left main cannulated with EBU 3.5 guide Prowater wire passed across lesion into distal vessel Property Condition Assessor 50 wire passed into D1 [place] IVUS catheter placed into mid LAD pullback revealed severe moderately calcified disease beginning in the midsegment after D1 and extending back near LAD ostium. Ostium of D1 predilated with 2.0 compliant balloon 2.5 x 26 mm [place] drug-eluting stent placed from proximal LAD across takeoff of D1 and D2. Stent post-dilated with 3.0 noncompliant balloon D1 rewired with pilot supervisor 50 wire Ostium of D1 dilated through stent struts with 2.0 balloon IC vasodilators administered for spasm Post procedure ARUN 3 flow, stent well expanded with minimal residual stenosis and no apparent cardiac complications. Arterial Closure: TR band Summary: 1. Successful PCI of proximal to mid LAD with single drug-eluting stent (2.5 x 26 mm Creight[place]; postdilated with 3.0 NC). -PTCA of ostium of jailed D1 with 2.0 Recommendations: To PCU for continued monitoring Continue dual-antiplatelet therapy for at least 1 year Consult cardiac Rehab Hemodynamics Rest Ao:: 126/77/93 Final Ao: 140/73/132 LV: 121/15 Recommendations Recommendations: PCI without planned CABG Specimens Specimens: None Radiation Exposure (mGy) 2539 Contrast (mls) 130 Fluids (cc crystalloids) Fluids (cc crystalloids): 121 Drains Drains: None Anesthesia Moderate Procedural Complication(s) None Disposition ICU I attest to the content of the Intraoperative Record and any orders documented therein. Any exceptions are noted below. PG Care Time/CCT Total # of Minutes Spent Total Time Spent with Patient: Total time spent is greater than 50% in coordination of care (as documented) at patient's floor/unit and/or counseling patient:
--- NOTE | 2020-10-21 18:14 | Discharge Summary ---
Date of Service October 21, 2020 Admission HPI Per Admitting Provider 75 yo M PMHx HTN, DM2, HLD, lumbar spinal stenosis, anxiety, depression presented to ER via EMS for midsternal chest pain that awoke him from sleep around 12AM, described as 10/10 at its worst, with some associated li ghtheadedness and sensation of breathlessness. No recent illnesses, no fevers or chills, no nausea or vomiting, headaches, diarrhea. Does endorse episode of chest pain on Saturday that improved with antacids, that felt somewhat similar to the pain that awoke him this morning, however it was significantly worse this AM. Heart alert called en route to ER for noted ST elevations. He was also given as pirin 324mg en route. In ER patient was noted to have BP 200s/100s, troponin elevated to 0.229, and EKG with ST elevations in inferior leads consistent with inferior STEMI. Patient's pain improved moderately with nitroglycerin SL. Taken emergently for cardiac catheterization by Dr. Guardado. Was noted to have acute 100% RCA and had ALVAREZ x1 placed. Patient was admitted to ICU for continuous cardiac monitoring in the setting of recent PCI. Principal Diagnosis STEMI Discharge Exam gen aaox3 pleasant nad heent nc at mmm breathing unlabored no accessory muscles good effort skin no rashes no pallor or icterus neuro no focal deficits Discharge Data Allergies Allergy/AdvReac Type Severity Reaction Status Date / Time metformin AdvReac Severe Diarrhea Verified 10/20/20 03:16 pramipexole [From Mirapex] AdvReac Unknown insomnia Verified 10/20/20 03:16 ropinirole AdvReac Unknown nasal Verified 10/20/20 03:16 congestion Consultations 10/20/20 03:20 ED Decision to Admit Stat 10/20/20 04:52 Consult Cardiac Rehabilitation Routine Consult Case Management - Discharge Planning Routine Consult Conditioner Tumbler Operator Routine Procedures Performed Operation Date: 10/20/20 03:20 Actual Procedures p Aspiration/PCI w/ALVAREZ for Stemi - Diego Guardado MD s Cath, Left with Cors and Vent - Diego Guardado MD s Cineradiography w/Routine Exam - Diego Guardado MD Operation Date: 10/20/20 03:30 <No data on this case meets the specified criteria> Operation Date: 10/21/20 11:00 Actual Procedures p Drug Eluting Stent SGl Vessel - Diego Guardado MD s Cath, Left with Cors and Vent - Diego Guardado MD s Cineradiography w/Routine Exam - Diego Guardado MD s IVUS Coronary Single Vessel - Diego Guardado MD Ordered Studies 10/20/20 03:19 CL Cath Imgs for PACS use only Stat 10/21/20 09:03 CL Cath Imgs for PACS use only Routine 10/21/20 16:47 CL IVUS Coronary Single Vessel Routine Hospital Course (1) ST elevation (STEMI) myocardial infarction: now post cath and stenting to RCA and LAD echo w mild concentric LVH, EF 40% inferoseptal hypokinesis to akinesis, mild inferolateral hypokinesis. normal RV. moderate MR stable for home, med management, lifestyle measures, close outpt f/u (2) Anxiety: (3) Hypercholesteremia: (4) Lumbar spinal stenosis: (5) Hypertension: (6) Diabetes: (7) Depression: (8) Hyperlipidemia: Total Time Total Time Spent Total Time Spent (In Minutes): >30 Discharge Plan Discharge Items Patient Disposition: Home - Self-Care Reason For Visit: STEMI Discharge Diagnosis: Heart attack, coronary artery disease Activity: Per Instructions section Activity Comment: Take it easy until seen by Dr. Guardado in follow-up. Non-emergency contact: Primary Care Provider and Staff Respiratory Therapist Call non-emergency contact if: you have any medication questions and your symptoms worsen Follow-up/Referrals: Leatha Farrell [Primary Care Provider] - Diet: Heart Healthy Addtl Attending Provider Instructions: Heart attack (STEMI) -This is one of her arteries getting blood your heart muscle get completely blocked up and heart muscle dies off as a consequence. Yours was fairly sizable, but fortunately your heart function overall is still good. -While Dr. Guardado has opened up the blood vessels and there is now good blood flow going through the stents, we certainly have to look at this as an ongoing problem, given that the coronary artery disease itself does not go away. -As we were discussing, the main measures to protect yourself from future heart attacks are lifestyle, and medications. Lifestyle -As we discussed, your eating habits overall are actually pretty good. To move from good to perfect, it would mostly entail reducing how much bread/starch you eatbut even that is not a whole lot. It also would be helpful to eat a little bit more in terms of fruits and vegetables. That said, you overall do pretty well with your diet, and it would be better to put your immediate efforts into other prevention measures. -The biggest area for lifestyle improvement we can see with you would be in terms of exercise. As we discussed, being active and busy on your property is absolutely way better than being sedentary, but is quite different from truly exercising. For the short-term, we will want you to take it easy while your heart and body are healing from the heart attack and stenting procedures. However, once Dr. Guardado gives you the "green light" to start to get more active, we would definitely want you working towards a goal of 30 minutes of light cardiovascular exercise daily. This could be something like a brisk walk, like bike ride, hiking on your property, etc. In a perfect world once you are able to, you will do this every single day. -Further as we discussed," problem solving" of how this all came about, it is likely a lot from the smoking you used to do, but since you have quit so long ago there is nothing further that needs to be done about that. Medications -As we talked about, medications alone are probably about 80% protective from being back with another heart attack. -Unfortunately it does, as a "small cocktail" of medicines -Further, as we discussed something like 2 out of 3 people are not taking their medications right 6 months out from a heart attackI suspect this is really because there never truly taught why they are on the medicines or why each 1 does something different that is important for your heart, and eventually because they are feeling good just randomly start stopping medicines. We do not want this to be you. Over years and years, sometimes when people are doing extremely well, cardiology can slowly reduce medicines, but largely what you are on should be what you take for the foreseeable future. -Aspirin and Brilintathese are both what are called "antiplatelet" blood thinners. Whenever Dr. Guardado put a stent in, it does create a degree of breaks in the lining of the blood vessel. Without the antiplatelet medicines, your blood would react to those breaks in the blood vessel and form clotscompletely occluding the artery and leading to dangerous lack of blood flow almost imm ediately. When people are on the antiplatelet medicines, that risk is really minimal. Typically we need to have you on 2 antiplatelet medicines for the better part of a year, so that your blood vessel can slowly grow over the stent/fill and the breaks in the skin. Depending on how you are doing in a year, then Dr. Guardado may be able to direct you to stopping one or the other. Most people tolerate these really well, of course there is a little bit of "nuisance bleeding" such as easier bruising or easier nosebleeds. For most people this is not a huge deal, more of just an annoyance. -Metoprololin a class of medications called "beta-blockers" medicines like metoprolol essentially act as a muscle relaxant for your heart. They slow down your heart rate and relax the heart muscle more, making it need less blood so that it does not have to work quite as hard. Typically medicines like metoprolol are really well-tolerated, sometimes they can cause an oppressive feeling of fatigue. However, right now, if you are feeling fatigued, recovering from a heart attack itself is very fatiguing, so I would not necessarily look at metoprolol as a culprit for fatigue until you have had at least a good 6 weeks to recover from this episode. Again to be clear, most people tolerate it without any problem at all. -Lisinoprilthis is a different blood pressure medicine, and a class called "ADRIAN inhibitors". You're already on it, but it will be an important one to continue. Your kidneys take about 20% of the blood flow from every heartbeat, and medications like lisinopril open up the blood flow to the kidneys morereducing the back pressure on your heart. These medicines are tremendously helpful in taking strain off of your heart and allowing it to heal well after the heart attack. In the long-term these types of medicines are some of the most protective against future heart attacks (and actually protective against strokes as well). A very small percentage of people (somewhere in the neighborhood of 5%) do develop a dry annoying cough when they are on this kind of medicine, if you start to notice that happen, it is fairly easy to switch to a very similar class of medicines called ARB's. -Atorvastatinthe statin medicines, and really only atorvastatin or rosuvastatin, do more than just lower your cholesterol. When you look at the events that happened to have somebody suffer a heart attack, it is not just a blockage getting bigger and thicker until the artery totally occludes. Typically the plaque is an inflamed fatty layer, with a thin layer of skin over it. Because the fatty layer is inflamed, it can create a split in the skin. When the skin splits, your body forms a clot just like it would if you cut your finger in the kitchen. Unfortunately a clot midstream and a coronary artery kills off downstream heart muscle. Atorvastatin and rosuvastatin at only the medium and high doses (like you are on with 80 mg of atorvastatin) do a nice job of reducing the likelihood of that plaque rupture happening to begin with. This, combined with the aspirin and Brilinta, do a very nice job of preventing plaque rupture and then reducing how thicker denser clot would be in the coronary should a plaque rupture occur. ----As a matter of housekeeping, it is generally safer to have people avoid anti-inflammatory medicines once we know they have vascular disease. This means trying to avoid or strongly minimize taking medicines like ibuprofen, meloxican, Naprosyn, etc. They do not necessarily seem to cause heart attacks and strokes per se, but we definitely see that when people have a heart attack or a stroke it is more likely to happen on a day that they take an anti-inflammatory than a day that they do not. Pending Studies at Discharge: No Stand-Alone Forms: [facility], Smoking Cessation Medications and DC Order Prescriptions: New metoprolol tartrate 25 mg Tablet 25 mg PO BID Qty: 60 RF: 0 Brilinta 90 mg Tablet 90 mg PO BID Qty: 60 RF: 0 atorvastatin 80 mg tablet 80 mg PO QAM Qty: 30 RF: 0 Continued lorazepam 1 mg tablet 1 mg PO DAILY PRN (Reason: Anxiety) RF: 0 multivitamin Tablet 1 tab PO QAM RF: 0 lisinopril [Zestril] 10 mg tablet 10 mg PO QAM RF: 0 bupropion HCl 75 mg Tablet 150 mg PO QPM RF: 0 ropinirole 2 mg tablet 3.5 mg PO .COMPLEX RF: 0 acetaminophen 325 mg Tablet 650 mg PO Q6H PRN (Reason: Pain) RF: 0 hydrocodone-acetaminophen 5-325 mg Tablet 1 tab PO DIRECTED PRN (Reason: Pain) RF: 0 oxybutynin chloride 5 mg Tablet Extended Release 24hr 5 mg PO DAILY RF: 0 aspirin [Aspirin Child] 81 mg Tablet,Chewable 324 mg PO ONCE RF: 0 Gaviscon 160-105 mg Tablet,Chewable 2 tab PO DIRECTED PRN (Reason: Indigestion) RF: 0 turmeric 400 mg Capsule 400 mg PO DAILY RF: 0 gabapentin 600 mg tablet 600 mg PO TID PRN (Reason: PAIN/RESTLESS LEGS) RF: 0 Discontinued meloxicam 15 mg tablet 15 mg PO DAILY PRN (Reason: Pain) RF: 0 ibuprofen 800 mg tablet 800 mg PO Q8H PRN (Reason: Pain) RF: 0 atorvastatin 20 mg Tablet 20 mg PO HS RF: 0 Discharge Orders: Discharge Order (Routine); Ordered 10/21/20 Ordered By: Lazarus Steinberg/Other Patient Handouts: Managing Type 2 Diabetes, Managing Diabetes: The A1C Test Admission Data Admit Date/Time: 10/20/20 04:09 Attending Provider: Lazarus Sauceda Admit Provider: Diego Guardado Primary Care Provider: Leatha Farrell Other Providers: Jarrell Brito ; Willis Tejada Coding Level of Care Code D/C Day Management >[address] elevation (STEMI) myocardial infarction I21.11 Involved coronary artery: right coronary artery Anxiety F41.9 Hypercholesteremia E78.00 Lumbar spinal stenosis M48.061 Hypertension I10 Hypertension type: essential hypertension Diabetes E11.42 Diabetes mellitus type: type 2 Diabetes mellitus long-term insulin use: without long-term use Diabetes mellitus complication status: with neurologic complications Diabetes mellitus complication detail: with polyneuropathy Depression F32.9 Depression Type: unspecified Hyperlipidemia E78.2 Hyperlipidemia type: mixed hyperlipidemia
--- NOTE | 2020-10-21 18:23 | Cardiology Progress Note ---
Date of Service October 21, 2020 Assessment & Plan (1) CAD (coronary artery disease): -Inferior STEMIpost primary PCI with ALVAREZ to proximal mid RCA, angioplasty to proximal PDA Post staged PCI of LAD with ALVAREZ, PTCA to diagonal 2. Ischemic cardiomyopathyEF 40% with inferior hypokinesis to akinesis 3. Moderate mitral regurgitation 4. Hypertension 5. Dyslipidemia 6. Type 2 diabetes Chest pain-free, hemodynamically and electrically stable. TR band off. No access site complications. From a cardiac standpoint OK with discharge this evening. Home on aspirin, ticagrelor Continue metoprolol to 25 mg, lisinopril to 10 mg Continue current statin Follow-up with me in 1 week. Admission and Anticipated Discharge Date Admission Date: October 20, 2020 Subjective Patient underwent PCI with ALVAREZ to LAD (2.5 x 26 mm Chris) today with PTCA to jailed D1 with 2.0 balloon. Post procedure patient feeling well. No chest pain. No access site complications. Review of Systems Review of Systems: All systems reviewed & are unremarkable except as noted in HPI & below Physical Exam Physical Exam: General: Comfortable HEENT: Sclerae anicteric Lungs: Clear to auscultation bilaterally Cardiac: Regular rate and rhythm, 2/6 holosystolic murmur at the apex. Vascular: Right radial artery access site with no ecchymosis, hematoma. Abdomen: Soft, nontender Extremities: Well perfused, no peripheral edema Neuro: Nonfocal Psych: Alert orient x3, normal affect and mood Results & Data ([facility]) Vital Signs (Past 12 Hours) Vital Signs Temp Pulse Pulse Resp BP BP Pulse Ox 10/21/20 17:20 85 17 10/21/20 17:17 83 21 10/21/20 17:10 24 10/21/20 17:03 78 16 10/21/20 17:02 85 7 L 138/72 10/21/20 17:00 77 13 10/21/20 16:50 87 24 10/21/20 16:47 84 16 106/61 10/21/20 16:42 86 25 H 111/57 L 10/21/20 16:40 86 3 L 10/21/20 16:30 85 19 10/21/20 16:20 88 17 10/21/20 16:17 24 128/93 10/21/20 16:10 18 10/21/20 16:02 100 H 23 141/90 H 10/21/20 16:00 15 10/21/20 15:50 138 H 18 96 10/21/20 15:47 82 20 127/74 96 10/21/20 15:40 104 H 14 96 10/21/20 15:33 80 20 93 10/21/20 15:32 84 16 133/85 10/21/20 15:20 80 17 125/87 95 10/21/20 15:05 82 17 143/88 H 95 10/21/20 12:40 74 17 10/21/20 12:36 63 15 10/21/20 12:22 32 H 10/21/20 12:00 72 16 10/21/20 11:50 65 15 10/21/20 11:41 64 12 10/21/20 11:36 69 15 10/21/20 11:33 97.9 F 61 16 106/64 95 10/21/20 11:26 106/64 10/21/20 11:10 64 8 L 10/21/20 11:00 64 17 10/21/20 10:50 65 13 10/21/20 10:40 59 L 15 10/21/20 10:30 72 23 94 10/21/20 10:21 72 24 10/21/20 08:43 85 8 L 10/21/20 08:30 77 4 L 10/21/20 08:20 78 12 10/21/20 08:13 97.7 F 10/21/20 08:10 72 12 10/21/20 08:00 98.1 F 70 67 8 L 113/74 96 10/21/20 07:57 73 10 L 113/74 96 10/21/20 07:50 75 12 10/21/20 07:40 82 8 L 10/21/20 07:30 80 17 10/21/20 07:20 79 9 L 10/21/20 07:10 74 20 10/21/20 07:00 75 7 L 10/21/20 06:50 82 19 10/21/20 06:40 70 7 L 10/21/20 06:31 68 19 95 10/21/20 06:30 77 9 L 138/95 PG Care Time/CCT Total # of Minutes Spent Total Time Spent with Patient: Total time spent is greater than 50% in coordination of care (as documented) at patient's floor/unit and/or counseling patient: Coding Level of Care Code 58272 Subseq Hosp Care Lvl 3 Diagnoses CAD (coronary artery disease) I25.10
== END 2020-10-21 19:15 | disposition home or self-care (01) | DRG 247 ==
LOC: ED 02:50 → CC 03:34 → 1E 04:09 → SUATTDRO 04:09

== ENCOUNTER 2022-10-11 23:47 | Observation (INO) ==
[2022-10-12 00:22] LABS: Basophils # (auto) 0.04 K/uL (0-0.2); Basophils % (auto) 0.5 %; Eosinophils # (auto) 0.34 K/uL (0-0.50); Eosinophils % (auto) 3.9 %; Hemoglobin 15.2 g/dl (14.0-18.0); Immature Granulocytes # (auto) 0.02 K/uL (0.01-0.20); Immature Granulocytes % (auto) 0.2 %; Lymphocytes # (auto) 1.73 K/uL (1.2-3.4); Mean Corpuscular Hemoglobin 29.3 pg (25.0-34.0); Mean Corpuscular Volume 88.8 fL (80.0-100.0); Mean Platelet Volume 10.9 fL (9.4-12.4); Monocytes # (auto) 0.58 K/uL (0.11-0.59); Monocytes % (auto) 6.7 %; Neutrophils # (auto) 5.93 K/uL (1.40-6.50); Neutrophils % (auto) 68.7 %; Platelet Count 167 K/uL (130-400); RDW Coefficient of Variation 13.4 % (11.5-14.5); RDW Standard Deviation 43.8 fL (36.4-46.3); Red Blood Count 5.18 M/uL (4.70-6.10); White Blood Count 8.64 K/ul (4.8-10.8)
[2022-10-12] MEDS ORDERED: ASPIRIN CHEW 324 MG PO STA (00:35)
--- NOTE | 2022-10-12 00:38 | Emergency Department Note ---
History of Present Illness General Chief complaint: Chest Pain Stated complaint: CHEST PAIN Time Seen by Provider: 10/11/22 23:52 History of Present Illness Maximum Pain Intensity: 2 77-year-old male with a history of coronary artery disease and 2 stents presents emergency department with onset of chest pain that was substernal in nature nonradiating at 9 PM this evening while at rest watching TV. Patient did take antacid the pain did not go away and that he took 2 nitro which decreased his pain to pain-free currently. Patient denies any shortness of breath nausea vomiting diaphoresis. Patient states that he did forget to take his cardiac meds for the past 2 days. Patient denies any other complaints. There are no other mitigating or alleviating factors Home Medications Medication Instructions Recorded Confirmed Type bupropion HCl 75 mg tablet 150 mg PO HS 07/26/18 10/12/22 History multivitamin 1 tab PO QAM 07/26/18 10/12/22 History atorvastatin 80 mg tablet 80 mg PO QAM #30 tabs 10/21/20 10/12/22 Rx aspirin 81 mg chewable tablet 81 mg PO QAM 10/27/20 10/12/22 History ropinirole 2 mg tablet 3.5 mg PO DIRECTED 10/27/20 10/12/22 History nitroglycerin 0.4 mg sublingual 0.4 mg sublingual Q5M PRN chest 11/02/20 10/12/22 Rx tablet pain #30 tabs aluminum hydrox-magnesium carb 160 2 tab PO DIRECTED PRN 12/26/20 10/12/22 History mg-105 mg chewable tablet Indigestion diphenhydramine HCl 50 mg capsule 50 mg PO HS 03/27/21 10/12/22 History triazolam 0.25 mg tablet 0.25 mg PO HS PRN Insomnia 05/12/21 10/12/22 History oxybutynin chloride 5 mg 5 mg PO BID 11/30/21 10/12/22 History tablet,extended release 24 hr lisinopril 10 mg tablet (Zestril) 10 mg PO QAM #90 tabs 12/11/21 10/12/22 Rx Vicodin 325 mg PO BID 02/23/22 10/12/22 History cider [id number] 300 1 tab PO QAM 02/23/22 10/12/22 History mg-8.3 mg tablet diclofenac sodium 1 % topical gel 1 ea topical UD PRN Pain 02/23/22 10/12/22 History (Voltaren Arthritis Pain) semaglutide 0.25 mg or 0.5 mg (2 0.25 mg subcut WK 02/23/22 10/12/22 History mg/1.5 mL) subcutaneous pen injector (Ozempic) clopidogrel 75 mg tablet 75 mg PO QAM #90 tabs 03/22/22 10/12/22 Rx mupirocin 2 % topical ointment 1 applic topical BID #22 grams 09/12/22 10/12/22 Rx gabapentin 300 mg capsule 300 mg PO TID PRN Pain 10/12/22 10/12/22 History Allergies Allergy/AdvReac Type Severity Reaction Status Date / Time zolpidem [From Ambien] Allergy Severe Hallucinati Verified 10/12/22 00:18 ng metformin AdvReac Severe Diarrhea Verified 10/12/22 00:18 pramipexole [From Mirapex] AdvReac Unknown insomnia Verified 10/12/22 00:18 ropinirole AdvReac Unknown nasal Verified 10/12/22 00:18 congestion Past Med/Surg History Medical History Chronic back pain Depression Diabetes mellitus, type 2 Hyperlipidemia Hypertension Lumbar spinal stenosis T12-L1 Osteoarthritis Restless leg syndrome Sleep apnea non compliant w/cpap STEMI (ST elevation myocardial infarction) 2020 Surgical History H/O hemorrhoidectomy H/O shoulder surgery lt. History of back surgery X4 - FUSION AND DISECTOMIES History of bunionectomy of right great toe History of cholecystectomy History of tonsillectomy Hx of colonoscopy Stented coronary artery ALVAREZ to RCA and LAD Family History Father Heart disease Other Allergies Family history non-contributory No family history of bleeding disorder Denies family history of Hearing loss Cancer Hypertension Stroke Asthma Social History Smoking Status: Never smoker Tobacco Type: Cigarettes packs per day: 1; Cigarettes Per Day: 20; Second Hand Exposure: No; Hx Alcohol Use: No Hx Substance Use: No Preferred Language: Togolese Communication Ability: Effective Visual Impairment: No Limitations Hearing Ability: Normal Labor Relations Representative Required: No Beliefs That Will Affect Care: None marital status: Current Living Situation: Spouse current occupational status: retired current occupation: Retired Feels Safe at Home: Yes Assistive Devices: None Review of Systems A total of 10 systems reviewed and were otherwise negative Cardiovascular: + chest pain Physical Exam Vital Signs Vital Signs - 24 hr 10/11/22 23:50 10/12/22 00:09 Temperature 36.5 C Temperature Source Temporal Artery Scan Pulse Rate 82 78 Respiratory Rate 16 18 Respiratory Effort / Characteristics Non-Labored Spontaneous Respiratory Depth Normal Blood Pressure 121/76 Blood Pressure Mean 91 Blood Pressure Position Sitting Pulse Oximetry 95 98 Oxygen Delivery Method Room Air Room Air Sepsis Recent Fever Within 48 Hours No Sepsis New/Unexplained Change in Mental Status N/A Sepsis Action Taken by Nursing No Action Required GENERAL: Patient is awake alert in no acute distress patient is resting comfortably and showing no signs of anxiety EYES: The conjunctivae are clear. The pupils are round and reactive. EARS, NOSE, MOUTH AND THROAT: The nose is without any evidence of any deformity. Mucous membranes are moist. Tongue is midline. NECK: The neck is nontender and supple. RESPIRATORY: Normal respiratory effort is noted there is no evidence of wheezing rhonchi or rales CARDIOVASCULAR: Regular rate and rhythm noted there no murmurs rubs or gallops normal S1 normal S2. GASTROINTESTINAL: The abdomen is soft. Abdomen is nontender. BACK: No midline tenderness or or step-off noted range of motion in flexion extension as well as rotation no signs of muscle spasm noted MUSCULOSKELETAL/EXTREMITIES: There is no evidence of gross deformity full range of motion is noted in the hips and shoulders. SKIN: There is no obvious evidence of any rash. There are no petechiae, pallor or cyanosis noted. NEUROLOGIC: Patient is awake alert and oriented x3 strength is symmetric PSYCH: Normal affect Course Reevaluation(s) Reevaluation #1: Patient is resting in no distress on repeat examination no current chest pain Time: 01:51 Consultations Consultation #1: [facility] hospitalist for admission, Dr. Ibarra agrees for admission for chest pain Time: 01:52 Administered Medications Discontinued Medications Aspirin (Aspirin Chew 324 Mg) 324 mg PO NOW STA Stop: 10/12/22 00:36 Last Admin: 10/12/22 00:47 Dose: 324 mg Documented By: [facility] Medical Decision Making Medical Records Attestation: I reviewed the patient's medical records. Home Medications Current Medication List: was personally reviewed by me Laboratory Data Attestation: I reviewed the patient's lab results. Labs reviewed and unremarkable 10/11/22 00:05 10/11/22 00:05 Lab Results 10/11/22 10/11/22 10/11/22 Range/Units 00:05 00:05 00:05 WBC 8.64 (4.8-10.8) K/ul RBC 5.18 (4.70-6.10) M/uL Hgb 15.2 (14.0-18.0) g/dl Hct 46.0 (42.0-52.0) % MCV 88.8 (80.0-100.0) fL MCH 29.3 (25.0-34.0) pg MCHC 33.0 (32.0-36.0) g/dL RDW Std Deviation 43.8 (36.4-46.3) fL RDW Coeff of Linh 13.4 (11.5-14.5) % Plt Count 167 (130-400) K/uL MPV 10.9 (9.4-12.4) fL Immature Gran % (Auto) 0.2 % Neut % (Auto) 68.7 % Lymph % (Auto) 20.0 % [place] % (Auto) 6.7 % Eos % (Auto) 3.9 % Baso % (Auto) 0.5 % Neut # (Auto) 5.93 (1.40-6.50) K/uL Lymph # (Auto) 1.73 (1.2-3.4) K/uL [place] # (Auto) 0.58 (0.11-0.59) K/uL Eos # (Auto) 0.34 (0-0.50) K/uL Baso # (Auto) 0.04 (0-0.2) K/uL Immature Gran # (Auto) 0.02 (0.01-0.20) K/uL PT 11.4 (9.0-12.0) Seconds INR 1.1 (0.9-1.1) APTT 30.1 (21.0-31.0) Seconds PTT Ratio 1.1 Sodium 140 (136-145) mmol/L Potassium 4.0 (3.5-5.1) mmol/L Chloride 108 H (98-107) mmol/L Carbon Dioxide 26 (21-32) mmol/L Anion Gap 6 (3-11) BUN 17 (6-23) mg/dl Creatinine 0.86 (0.6-1.4) mg/dl Est Cr Clr Drug Dosing 73.2 ml/min Est GFR ( Amer) 98.3 ml/min Est GFR (Non-Af Amer) 84.8 ml/min BUN/Creatinine Ratio 19.8 (10-20) Glucose 163 H (70-99(Fasting)) mg/dl Calcium 8.9 (8.5-10.1) mg/dl Total Bilirubin 0.9 (0.2-1.0) mg/dl AST 19 (13-39) U/L ALT 27 (7-52) U/L Alkaline Phosphatase 90 (34-104) U/L Troponin I High Sens 4.4 (0-20) pg/ml Total Protein 6.4 (6.0-8.3) gm/dl Albumin 4.3 (3.4-5.0) gm/dl Globulin 2.1 L (2.5-4.0) gm/dl Albumin/Globulin Ratio 2.0 (0.9-2) Lipase 15 (11-82) U/L Imaging Data Attestation: I personally reviewed and interpreted this imaging study as follows: My Impression: Chest x-ray interpreted by me normal mediastinum negative for pneumothorax negative for pleural effusion or infiltrate ECG Data Attestation: I personally reviewed and interpreted this ECG as follows: Additional Comments: EKG interpreted by me sinus rhythm rate of 72 poor R wave progression the precordium no obvious ST segment elevation or depression or PVCs, normal intervals normal axis MDM Narrative Medical decision making differential diagnosis includes angina, unstable angina, acute coronary syndrome, acute NC, musculoskeletal chest pain, GERD. Plan is to check labs, EKG, chest x-ray, give aspirin Nursing notes were reviewed by me External medical records were reviewed by me Heart score is moderate Patient was given aspirin in the emergency department Patient has a nonischemic EKG a normal troponin heart score is moderate, the case was discussed with the [facility] for admission Impression & Plan Chest pain Discharge Plan Visit Data Chief Complaint: Chest Pain Stated Complaint: CHEST PAIN ED Provider: Jay Cole Discharge Problem: Chest pain Patient Disposition: Admitted As Inpatient Forms Stand Alone Forms: My [facility] Prescriptions Prescriptions: No Action clopidogrel 75 mg tablet 75 mg PO QAM Qty: 90 3RF triazolam 0.25 mg tablet 0.25 mg PO HS PRN (Reason: Insomnia) lisinopril [Zestril] 10 mg tablet 10 mg PO QAM Qty: 90 3RF diphenhydramine HCl 50 mg capsule 50 mg PO HS nitroglycerin 0.4 mg tablet, sublingual 0.4 mg sublingual Q5M PRN (Reason: chest pain) Qty: 30 1RF Rx Instructions: do not exceed 3 doses per episode mupirocin 2 % ointment 1 applic topical BID Qty: 22 8RF multivitamin Tablet 1 tab PO QAM bupropion HCl 75 mg Tablet 150 mg PO HS ropinirole 2 mg tablet 3.5 mg PO DIRECTED Rx Instructions: takes 1 mg in the afteronoon and 3 mg in the evening. atorvastatin 80 mg tablet 80 mg PO QAM Qty: 30 0RF aspirin 81 mg tablet,chewable 81 mg PO QAM aluminum hydrox-magnesium carb 160-105 mg tablet,chewable 2 tab PO DIRECTED PRN (Reason: Indigestion) oxybutynin chloride 5 mg tablet extended release 24 hr 5 mg PO BID Apple Cider Vinegar Complex 300-8.3 mg Tablet 1 tab PO QAM Vicodin 325 mg PO BID Ozempic 0.25 mg or 0.5 mg(2 mg/1.5 mL) Pen Injector 0.25 mg SUBCUT WK Rx Instructions: SUNDAYS diclofenac sodium [Voltaren Arthritis Pain] 1 % Gel 1 ea TOPICAL UD PRN (Reason: Pain) Rx Instructions: as directed w/dosing card gabapentin 300 mg Capsule 300 mg PO TID PRN (Reason: Pain) Referrals Referrals: Leatha Farrell [Primary Care Provider] -
[2022-10-12 00:39] LABS: INR 1.1 (0.9-1.1); Partial Thromboplastin Ratio 1.1; Partial Thromboplastin Time 30.1 Seconds (21.0-31.0); Prothrombin Time 11.4 Seconds (9.0-12.0)
[2022-10-12 01:01] LABS: Albumin Level 4.3 gm/dl (3.4-5.0); Bilirubin,Total 0.9 mg/dl (0.2-1.0); Calcium 8.9 mg/dl (8.5-10.1)
[2022-10-12 01:07] LABS: BUN Creatinine Ratio 19.8 (10-20); Creatinine Clr Calc Pharmacy 73.2 ml/min; Est GFR (African American) 98.3 ml/min; Est GFR (Non-African American) 84.8 ml/min; Globulin 2.1 gm/dl (2.5-4.0); Total Protein 6.4 gm/dl (6.0-8.3)
[2022-10-12 01:09] LABS: Troponin I High Sensitivity 4.4 pg/ml (0-20)
--- NOTE | 2022-10-12 02:20 | History & Physical Report ---
Date of Service October 12, 2022 Assessment & Plan (1) Chest pain: Plan: 77-year-old male with history of coronary artery disease status post inferior [place] in October 2020 with placement of drug-eluting stent to proximal mid RCA, hypertension, hyperlipidemia and diabetes presenting with episode of chest pain resolved with nitro x2. Patient does admit to missing 2 days of his medications. Presently chest pain-free. Troponin x1 = negative. EKG with no acute ischemic changes Observation to medical with telemetry Trend troponin Consider cardiology consultation pending results of troponin Continue aspirin 81 mg p.o. daily, Plavix 75 mg p.o. daily Continue atorvastatin 80 mg p.o. every morning Continue lisinopril 10 mg p.o. daily a.m. Nitro as needed for chest pain EKG with chest pain (2) Hypertension: Plan: Blood pressure reportedly elevated prior to arrival. Well-controlled at present, 119/70 Continue lisinopril Continue to monitor (3) Diabetes: Plan: Patient with overall well-controlled diabetes. He is on Ozempic weekly. Last hemoglobin A1c on record in October 2020 = 6.5 Insulin sliding scale, goal blood sugar 110-140 Check hemoglobin A1c with a.m. labs Continue gabapentin 300 mg p.o. 3 times daily (4) Depression: Plan: Chronic. Well-controlled with home medications Continue bupropion 150 mg p.o. nightly (5) Hypercholesteremia: Plan: Chronic. Stable. Continue atorvastatin 80 mg p.o. daily (6) Restless leg syndrome: Plan: Chronic. Stable. Continue ropinirole 3.5 mg p.o. FENHep-Lock, electrolytes within normal limits, heart healthy diet as tolerated Ppx:Lovenox Codefull per discussion with patient Dispositionobservation of medical telemetry History of Present Illness Chief Complaint: Chest pain Primary Care Provider: Leatha Farrell Lopez Zafar is a pleasant 77-year-old male with history of hypertension, hyperlipidemia, diabetes, and known coronary artery disease status post NJ in October 2020 with ALVAREZ placement to RCA on dual antiplatelet therapy with aspirin and Plavix, ischemic cardiomyopathy with EF of 55 to 60%. Patient follows with cardiology, last seen in November 2021. Patient presents today with an episode of chest pain. He reports that he finished dinner around 20:00. He did have a couple Oreo thin cookies for dessert which have given him heartburn in the past. Around 20:50 he developed some chest tightness which he initially thought was indigestion. He took a Pepcid with no relief. His symptoms persisted for another hour and a half after which he informed his . She took his blood pressure at that time and noted to be elevated at approximately 200/102 with a heart rate of 84. Patient then took a nitroglycerin with some improvement in his pain. Several minutes later he took a second nitroglycerin. Pain continues to diminish and was resolved after approximately 20 minutes. He reports that his pain was substernal and left-sided, felt like pressure. He had some spasms radiating into his left arm. He also had some lightheadedness. Denies nausea, diaphoresis. Does report belching quite a bit which relieves some of the discomfort. Pain did not seem to be positional, pleuritic or exertional in nature. Presently with no chest pain. No additional complaints at this time In the ER patient afebrile, hemodynamically stable, no acute distress. ER course: Aspirin 324 mg Allergies Allergy/AdvReac Type Severity Reaction Status Date / Time zolpidem [From Ambien] Allergy Severe Hallucinati Verified 10/12/22 00:18 ng metformin AdvReac Severe Diarrhea Verified 10/12/22 00:18 pramipexole [From Mirapex] AdvReac Unknown insomnia Verified 10/12/22 00:18 ropinirole AdvReac Unknown nasal Verified 10/12/22 00:18 congestion Home Medications Medication Instructions Recorded Confirmed Type bupropion HCl 75 mg tablet 150 mg PO HS 07/26/18 10/12/22 History multivitamin 1 tab PO QAM 07/26/18 10/12/22 History atorvastatin 80 mg tablet 80 mg PO QAM #30 tabs 10/21/20 10/12/22 Rx aspirin 81 mg chewable tablet 81 mg PO QAM 10/27/20 10/12/22 History ropinirole 2 mg tablet 3.5 mg PO DIRECTED 10/27/20 10/12/22 History nitroglycerin 0.4 mg sublingual 0.4 mg sublingual Q5M PRN chest 11/02/20 10/12/22 Rx tablet pain #30 tabs aluminum hydrox-magnesium carb 160 2 tab PO DIRECTED PRN 12/26/20 10/12/22 History mg-105 mg chewable tablet Indigestion diphenhydramine HCl 50 mg capsule 50 mg PO HS 03/27/21 10/12/22 History triazolam 0.25 mg tablet 0.25 mg PO HS PRN Insomnia 05/12/21 10/12/22 History oxybutynin chloride 5 mg 5 mg PO BID 11/30/21 10/12/22 History tablet,extended release 24 hr lisinopril 10 mg tablet (Zestril) 10 mg PO QAM #90 tabs 12/11/21 10/12/22 Rx Vicodin 325 mg PO BID 02/23/22 10/12/22 History cider [id number] 300 1 tab PO QAM 02/23/22 10/12/22 History mg-8.3 mg tablet diclofenac sodium 1 % topical gel 1 ea topical UD PRN Pain 02/23/22 10/12/22 History (Voltaren Arthritis Pain) semaglutide 0.25 mg or 0.5 mg (2 0.25 mg subcut WK 02/23/22 10/12/22 History mg/1.5 mL) subcutaneous pen injector (Ozempic) clopidogrel 75 mg tablet 75 mg PO QAM #90 tabs 03/22/22 10/12/22 Rx mupirocin 2 % topical ointment 1 applic topical BID #22 grams 09/12/22 10/12/22 Rx gabapentin 300 mg capsule 300 mg PO TID PRN Pain 10/12/22 10/12/22 History Past Med/Surg History Medical History Chronic back pain Depression Diabetes mellitus, type 2 Hyperlipidemia Hypertension Lumbar spinal stenosis T12-L1 Osteoarthritis Restless leg syndrome Sleep apnea non compliant w/cpap STEMI (ST elevation myocardial infarction) 2020 Surgical History H/O hemorrhoidectomy H/O shoulder surgery lt. History of back surgery X4 - FUSION AND DISECTOMIES History of bunionectomy of right great toe History of cholecystectomy History of tonsillectomy Hx of colonoscopy Stented coronary artery ALVAREZ to RCA and LAD Family History Father Heart disease Other Allergies Family history non-contributory No family history of bleeding disorder Denies family history of Hearing loss Cancer Hypertension Stroke Asthma Social History Smoking Status: Never smoker Tobacco Type: Cigarettes packs per day: 1; Cigarettes Per Day: 20; Second Hand Exposure: No; Hx Alcohol Use: No Hx Substance Use: No Preferred Language: Montserratian Communication Ability: Effective Visual Impairment: No Limitations Hearing Ability: Normal Physical Optics Teacher Required: No Beliefs That Will Affect Care: None marital status: Current Living Situation: Spouse current occupational status: retired current occupation: Retired Feels Safe at Home: Yes Assistive Devices: None Review of Systems Review of Systems: All systems reviewed & are unremarkable except as noted in HPI & below Physical Exam Physical Exam: General: patient resting comfortably, NAD, non-toxic in appearance, AA&O x 4 Skin: warm, dry, intact, no rashes or lesions HEENT: NC/AT, PERRL, EOMI, anicteric sclera, conjunctiva without injection, external ear normal to inspection and nontender, nares patent, moist mucus membranes, dentition intact, no oropharyngeal lesions, neck supple, trachea midline, no LAD, no thyromegaly, no JVD Heart: +S1/S2, regular, no m/r/g Lungs: equal air entry bilaterally, no rales/rhonchi/wheezes Abd: +BS, soft, NT/ND, no masses/organomegaly/ascites Ext: warm, 2+ pulses in UE/LE bilaterally, no clubbing/cyanosis or edema Neuro: nonfocal, patient AA&O x 4, speech intact, no facial droop, moving all extremities on command with equal strength 5/5 Results & Data Results & Data ([facility]) Vital Signs (Past 12 Hours) Vital Signs Temp Pulse Pulse Resp BP BP Pulse Ox 10/12/22 01:57 68 17 119/70 92 10/12/22 00:09 78 18 98 10/11/22 23:50 36.5 C 82 16 121/76 95 O2 Del Method 10/12/22 01:57 Room Air 10/12/22 00:09 Room Air 10/11/22 23:50 Room Air Laboratory Results Laboratory Results WBC 8.64 K/ul (4.8-10.8) 10/11/22 00:05 RBC 5.18 M/uL (4.70-6.10) 10/11/22 00:05 Hgb 15.2 g/dl (14.0-18.0) 10/11/22 00:05 Hct 46.0 % (42.0-52.0) 10/11/22 00:05 MCV 88.8 fL (80.0-100.0) 10/11/22 00:05 MCH 29.3 pg (25.0-34.0) 10/11/22 00:05 MCHC 33.0 g/dL (32.0-36.0) 10/11/22 00:05 RDW Std Deviation 43.8 fL (36.4-46.3) 10/11/22 00:05 RDW Coeff of Linh 13.4 % (11.5-14.5) 10/11/22 00:05 Plt Count 167 K/uL (130-400) 10/11/22 00:05 MPV 10.9 fL (9.4-12.4) 10/11/22 00:05 Immature Gran % (Auto) 0.2 % 10/11/22 00:05 Neut % (Auto) 68.7 % 10/11/22 00:05 Lymph % (Auto) 20.0 % 10/11/22 00:05 [place] % (Auto) 6.7 % 10/11/22 00:05 Eos % (Auto) 3.9 % 10/11/22 00:05 Baso % (Auto) 0.5 % 10/11/22 00:05 Neut # (Auto) 5.93 K/uL (1.40-6.50) 10/11/22 00:05 Lymph # (Auto) 1.73 K/uL (1.2-3.4) 10/11/22 00:05 [place] # (Auto) 0.58 K/uL (0.11-0.59) 10/11/22 00:05 Eos # (Auto) 0.34 K/uL (0-0.50) 10/11/22 00:05 Baso # (Auto) 0.04 K/uL (0-0.2) 10/11/22 00:05 Immature Gran # (Auto) 0.02 K/uL (0.01-0.20) 10/11/22 00:05 PT 11.4 Seconds (9.0-12.0) 10/11/22 00:05 INR 1.1 (0.9-1.1) 10/11/22 00:05 APTT 30.1 Seconds (21.0-31.0) 10/11/22 00:05 PTT Ratio 1.1 10/11/22 00:05 Sodium 140 mmol/L (136-145) 10/11/22 00:05 Potassium 4.0 mmol/L (3.5-5.1) 10/11/22 00:05 Chloride 108 mmol/L (98-107) H 10/11/22 00:05 Carbon Dioxide 26 mmol/L (21-32) 10/11/22 00:05 Anion Gap 6 (3-11) 10/11/22 00:05 BUN 17 mg/dl (6-23) 10/11/22 00:05 Creatinine 0.86 mg/dl (0.6-1.4) 10/11/22 00:05 Est Cr Clr Drug Dosing 73.2 ml/min 10/11/22 00:05 Est GFR ( Amer) 98.3 ml/min 10/11/22 00:05 Est GFR (Non-Af Amer) 84.8 ml/min 10/11/22 00:05 BUN/Creatinine Ratio 19.8 (10-20) 10/11/22 00:05 Glucose 163 mg/dl (70-99(Fasting)) H 10/11/22 00:05 Calcium 8.9 mg/dl (8.5-10.1) 10/11/22 00:05 Total Bilirubin 0.9 mg/dl (0.2-1.0) 10/11/22 00:05 AST 19 U/L (13-39) 10/11/22 00:05 ALT 27 U/L (7-52) 10/11/22 00:05 Alkaline Phosphatase 90 U/L (34-104) 10/11/22 00:05 Troponin I High Sens 4.4 pg/ml (0-20) 10/11/22 00:05 Total Protein 6.4 gm/dl (6.0-8.3) 10/11/22 00:05 Albumin 4.3 gm/dl (3.4-5.0) 10/11/22 00:05 Globulin 2.1 gm/dl (2.5-4.0) L 10/11/22 00:05 Albumin/Globulin Ratio 2.0 (0.9-2) 10/11/22 00:05 Lipase 15 U/L (11-82) 10/11/22 00:05 SARS-CoV-2, RNA, NAAT NEGATIVE (NEGATIVE) 10/12/22 01:47 ECG Additional Comments: EKG with no acute ischemic changes Code Status & VTE Plan VTE Prophylaxis Plan VTE Prophylaxis will be ordered: Yes PG Care Time/CCT Total # of Minutes Spent Total Time Spent with Patient: Total time spent is greater than 50% in coordination of care (as documented) at patient's floor/unit and/or counseling patient: Coding Level of Care Code 40648 INT INP/OBS CARE 2/55MIN Diagnoses Chest pain R07.9 Hypertension I10 Hypertension type: essential hypertension Diabetes E11.42 Diabetes mellitus type: type 2 Diabetes mellitus senior care insulin use: without senior care use Diabetes mellitus complication status: with neurologic complications Diabetes mellitus complication detail: with polyneuropathy Depression F32.9 Depression Type: unspecified Hypercholesteremia E78.00 Restless leg syndrome G25.81 (1) Hypertension Hypertension type: essential hypertension Qualified Code(s): I10 - Essential (primary) hypertension (2) Diabetes Diabetes mellitus type: type 2 Diabetes mellitus senior care insulin use: without senior care use Diabetes mellitus complication status: with neurologic complications Diabetes mellitus complication detail: with polyneuropathy Qualified Code(s): E11.42 - Type 2 diabetes mellitus with diabetic polyneuropathy (3) Depression Depression Type: unspecified Qualified Code(s): F32.9 - Major depressive disorder, single episode, unspecified
[2022-10-12] MEDS ORDERED: DEXTROSE 50% 50 ML SYRINGE IV PRN (06:57)
[2022-10-12] MEDS ORDERED: GLUCOSE 10 TAB/TUBE PO PRN (06:57)
[2022-10-12] MEDS ORDERED: ACETAMINOPHEN 325 MG TAB PO PRN (06:57)
[2022-10-12] MEDS ORDERED: NITROGLYCERIN SL 0.4 MG/TAB TAB SL PRN (06:57)
[2022-10-12] MEDS ORDERED: CARBOHYDRATES FOR HYPOGLYCEMIA PO PRN (06:57)
[2022-10-12] MEDS ORDERED: GLUCAGON FOR INJ 1 MG VIAL SQ PRN (06:57)
[2022-10-12] MEDS ORDERED: ONDANSETRON INJ 2 MG/ML 2 ML VIAL IV PRN (06:57)
[2022-10-12] MEDS ORDERED: GLUCOSE 40% GEL 15 GM TUBE PO PRN (06:57)
[2022-10-12] MEDS ORDERED: GABAPENTIN 300 MG CAP PO PRN (06:57)
--- NOTE | 2022-10-12 07:26 | XRay Report ---
XR chest 1V portable CLINICAL HISTORY: Chest pain, nonspecific TECHNIQUE: Single frontal radiograph of the chest was obtained. Comparison: Comparison is made to chest radiograph 10/20/2020 FINDINGS: No lines and tubes are seen. The aorta is tortuous. The remainder of the cardiomediastinal silhouette is unremarkable. The lungs are clear. No evidence of pleural effusion or pneumothorax. IMPRESSION: No acute chest disease. ACT 112: Negative or not required by law. Electronically signed by: Antoni Pierson M.D. 10/12/2022 7:24 AM
[2022-10-12] MEDS: INSULIN ASPART PER UNIT SC SCH ×2 (07:55→12:19)
[2022-10-12] MEDS ORDERED: ENOXAPARIN INJ 40 MG/0.4 ML SYR SQ SCH (08:00)
[2022-10-12 08:14] LABS: Magnesium 2.1 mg/dl (1.7-2.4)
[2022-10-12 08:16] LABS: Troponin I High Sensitivity 4.4 pg/ml (0-20)
[2022-10-12] MEDS ORDERED: ATORVASTATIN 40 MG TAB PO SCH (09:00)
[2022-10-12] MEDS ORDERED: OXYBUTYNIN CHLORIDE XL 5 MG TABCR PO SCH (09:00)
[2022-10-12] MEDS ORDERED: CLOPIDOGREL BISULFATE 75 MG TAB PO SCH (09:00)
[2022-10-12] MEDS ORDERED: lisinopril 10 MG TAB PO SCH (09:00)
[2022-10-12] MEDS ORDERED: MUPIROCIN 2% OINT 22 GM TUBE TOP SCH (09:00)
[2022-10-12] MEDS ORDERED: ASPIRIN 81 MG CHEW PO SCH (09:00)
[2022-10-12] MEDS ORDERED: rOPINIRole HCL 1 MG TABLET PO SCH ×2 (14:00→21:00)
--- NOTE | 2022-10-12 14:28 | Cardiology Consultation ---
Date of Consultation October 12, 2022 Assessment & Plan (1) Chest pain: (2) CAD (coronary artery disease): Plan 1. Chest pain: The character of his symptoms is concerning for a coronary etiology. However, he had an extended episode of symptoms without any rise in his biomarkers. This would suggest that the etiology is not related to ischemia. Certainly possible that he had some gastrointestinal etiology as he has noticed this previously and admonished himself for eating so late in the evening last night. He has otherwise been active. Despite known residual coronary disease he has not had other exertional symptoms. I do not think additional stress testing is necessary and may in fact be abnormal given his known residual disease. In the absence of different symptoms would suggest continuing his current medical regimen. 2. Coronary artery disease: Prevention with dual anti-platelet therapy and high-dose atorvastatin. History of Present Illness Reason for Consultation: Chest pain Requesting Physician: Simran Attending Physician: Franco Castellanos MD History of Present Illness The patient is a 77-year-old gentleman with a history of coronary artery disease having suffered an inferior myocardial infarction in October of 2020. Patient was noted at that time to have significant disease in the LAD and branch vessel disease. He did undergo 2nd percutaneous intervention at that time to the LAD. The patient has done well since that time. He reports being an active individual who does not generally have exertional symptoms. No dyspnea on exertion or exertional chest pain. Occasionally he will have some mild dizziness. He has not been aware of any palpitations. Last evening he believes around 830 he began to experience some symptoms chest discomfort. This was after eating some chocolate covered cookies. He states that the symptoms involved a burning and tightness in the precordium. The symptoms did not radiate to the jaw or back. No arm involvement. Initially the patient took antacids on 2 occasions. This failed to relieve his symptoms. His who is a retired cardiovascular nurse suggested taking nitroglycerin. He did have some pills that he believes were year old and use 2 of them with the eventual relief in his symptoms after approximately 20 minutes. He believes the entire episode lasted well over an hour. He has not had any recurrence. Based on the nature of his symptoms and the fact that this felt similar to his prior heart attack presented to the emergency room for evaluation. Allergies Allergy/AdvReac Type Severity Reaction Status Date / Time zolpidem [From Ambien] Allergy Severe Hallucinati Verified 10/12/22 00:18 ng metformin AdvReac Severe Diarrhea Verified 10/12/22 00:18 pramipexole [From Mirapex] AdvReac Unknown insomnia Verified 10/12/22 00:18 ropinirole AdvReac Unknown nasal Verified 10/12/22 00:18 congestion Home Medications Medication Instructions Recorded Confirmed Type bupropion HCl 75 mg tablet 150 mg PO HS 07/26/18 10/12/22 History multivitamin 1 tab PO QAM 07/26/18 10/12/22 History atorvastatin 80 mg tablet 80 mg PO QAM #30 tabs 10/21/20 10/12/22 Rx aspirin 81 mg chewable tablet 81 mg PO QAM 10/27/20 10/12/22 History ropinirole 2 mg tablet 3.5 mg PO DIRECTED 10/27/20 10/12/22 History nitroglycerin 0.4 mg sublingual 0.4 mg sublingual Q5M PRN chest 11/02/20 10/12/22 Rx tablet pain #30 tabs aluminum hydrox-magnesium carb 160 2 tab PO DIRECTED PRN 12/26/20 10/12/22 History mg-105 mg chewable tablet Indigestion diphenhydramine HCl 50 mg capsule 50 mg PO HS 03/27/21 10/12/22 History triazolam 0.25 mg tablet 0.25 mg PO HS PRN Insomnia 05/12/21 10/12/22 History oxybutynin chloride 5 mg 5 mg PO BID 11/30/21 10/12/22 History tablet,extended release 24 hr lisinopril 10 mg tablet (Zestril) 10 mg PO QAM #90 tabs 12/11/21 10/12/22 Rx Vicodin 325 mg PO BID 02/23/22 10/12/22 History cider [id number] 300 1 tab PO QAM 02/23/22 10/12/22 History mg-8.3 mg tablet diclofenac sodium 1 % topical gel 1 ea topical UD PRN Pain 02/23/22 10/12/22 History (Voltaren Arthritis Pain) semaglutide 0.25 mg or 0.5 mg (2 0.25 mg subcut WK 02/23/22 10/12/22 History mg/1.5 mL) subcutaneous pen injector ([employer]) clopidogrel 75 mg tablet 75 mg PO QAM #90 tabs 03/22/22 10/12/22 Rx mupirocin 2 % topical ointment 1 applic topical BID #22 grams 09/12/22 10/12/22 Rx gabapentin 300 mg capsule 300 mg PO TID PRN Pain 10/12/22 10/12/22 History Patient History Medical History Chronic back pain Depression Diabetes mellitus, type 2 Hyperlipidemia Hypertension Lumbar spinal stenosis T12-L1 Osteoarthritis Restless leg syndrome Sleep apnea non compliant w/cpap STEMI (ST elevation myocardial infarction) 2020 Surgical History H/O hemorrhoidectomy H/O shoulder surgery lt. History of back surgery X4 - FUSION AND DISECTOMIES History of bunionectomy of right great toe History of cholecystectomy History of tonsillectomy Hx of colonoscopy Stented coronary artery ALVAREZ to RCA and LAD Family History Father Heart disease Other Allergies Family history non-contributory No family history of bleeding disorder Denies family history of Hearing loss Cancer Hypertension Stroke Asthma Social History Smoking Status: Former smoker Tobacco Type: Cigarettes packs per day: 1; Cigarettes Per Day: 20; Second Hand Exposure: No; Hx Alcohol Use: No Hx Substance Use: No Preferred Language: Chilean Communication Ability: Effective Visual Impairment: No Limitations Hearing Ability: Normal Shopper Insights Manager Required: No Beliefs That Will Affect Care: Spiritual marital status: Current Living Situation: Spouse current occupational status: retired current occupation: Retired Feels Safe at Home: Yes Safety Concerns: Feels Safe At This Time Assistive Devices: None Review of Systems Review of Systems: Per HPI. He sleeps poorly. He attributes most of this to restless leg syndrome. No recent symptoms suggestive of orthopnea or paroxysmal nocturnal dyspnea. No swelling in the lower extremities. He did not report feeling diaphoretic or clammy with his most recent episode. No recent constitutional symptoms such as upper airway congestion, fevers or chills. Physical Exam Physical Exam: The patient is alert and oriented. Mood and affect appeared normal. He answered all questions appropriately. HEENT: Pupils are equal and reactive to light and accommodation. Extraocular movements are intact. The sclerae are anicteric. Neuro: Cranial nerves intact Neck: Patient's neck is supple. He has palpable carotid pulses bilaterally without bruits on auscultation. There is no evidence of jugular venous distention. The thyroid is not enlarged. Lungs: Clear to auscultation bilaterally. He has good air movement without use of accessory muscles. No rales wheezes or rhonchi. Cardiac: Heart demonstrates a regular rate and rhythm. Normal S1 and S2. No murmurs on examination. Pulses: The patient has palpable radial pulses bilaterally that are equal in intensity Extremities: There was no evidence of hypoperfusion. There is no cyanosis or clubbing. There is no edema. Skin: I did not appreciate any rashes on examination today. Results & Data ([facility] [place]) Vital Signs (Past 12 Hours) Vital Signs Pulse Resp BP Pulse Ox O2 Del Method 10/12/22 10:34 70 16 144/88 H 96 Room Air 10/12/22 07:05 70 16 155/94 H 94 Room Air 10/12/22 05:00 71 18 140/85 93 Room Air 10/12/22 04:00 61 16 128/71 92 Room Air 10/12/22 03:00 70 18 133/77 95 Room Air Laboratory Results Abnormal Lab Results 10/11/22 10/11/22 10/11/22 00:05 00:05 00:05 WBC 8.64 RBC 5.18 Hgb 15.2 Hct 46.0 MCV 88.8 MCH 29.3 MCHC 33.0 RDW Std Deviation 43.8 RDW Coeff of Linh 13.4 Plt Count 167 MPV 10.9 Immature Gran % (Auto) 0.2 Neut % (Auto) 68.7 Lymph % (Auto) 20.0 Twiggs % (Auto) 6.7 Eos % (Auto) 3.9 Baso % (Auto) 0.5 Neut # (Auto) 5.93 Lymph # (Auto) 1.73 Twiggs # (Auto) 0.58 Eos # (Auto) 0.34 Baso # (Auto) 0.04 Immature Gran # (Auto) 0.02 PT 11.4 INR 1.1 APTT 30.1 PTT Ratio 1.1 Sodium 140 Potassium 4.0 Chloride 108 H Carbon Dioxide 26 Anion Gap 6 BUN 17 Creatinine 0.86 Est Cr Clr Drug Dosing 73.2 Est GFR ( Amer) 98.3 Est GFR (Non-Af Amer) 84.8 BUN/Creatinine Ratio 19.8 Glucose 163 H POC Glucose Calcium 8.9 Magnesium Total Bilirubin 0.9 AST 19 ALT 27 Alkaline Phosphatase 90 Troponin I High Sens 4.4 Total Protein 6.4 Albumin 4.3 Globulin 2.1 L Albumin/Globulin Ratio 2.0 Lipase 15 SARS-CoV-2, RNA, NAAT 10/12/22 10/12/22 10/12/22 01:47 07:26 07:33 WBC RBC Hgb Hct MCV MCH MCHC RDW Std Deviation RDW Coeff of Linh Plt Count MPV Immature Gran % (Auto) Neut % (Auto) Lymph % (Auto) Twiggs % (Auto) Eos % (Auto) Baso % (Auto) Neut # (Auto) Lymph # (Auto) Twiggs # (Auto) Eos # (Auto) Baso # (Auto) Immature Gran # (Auto) PT INR APTT PTT Ratio Sodium Potassium Chloride Carbon Dioxide Anion Gap BUN Creatinine Est Cr Clr Drug Dosing Est GFR ( Amer) Est GFR (Non-Af Amer) BUN/Creatinine Ratio Glucose POC Glucose 96 Calcium Magnesium 2.1 Total Bilirubin AST ALT Alkaline Phosphatase Troponin I High Sens 4.4 Total Protein Albumin Globulin Albumin/Globulin Ratio Lipase SARS-CoV-2, RNA, NAAT NEGATIVE 10/12/22 10/12/22 11:35 12:32 WBC RBC Hgb Hct MCV MCH MCHC RDW Std Deviation RDW Coeff of Linh Plt Count MPV Immature Gran % (Auto) Neut % (Auto) Lymph % (Auto) Twiggs % (Auto) Eos % (Auto) Baso % (Auto) Neut # (Auto) Lymph # (Auto) Twiggs # (Auto) Eos # (Auto) Baso # (Auto) Immature Gran # (Auto) PT INR APTT PTT Ratio Sodium Potassium Chloride Carbon Dioxide Anion Gap BUN Creatinine Est Cr Clr Drug Dosing Est GFR ( Amer) Est GFR (Non-Af Amer) BUN/Creatinine Ratio Glucose POC Glucose 89 Calcium Magnesium Total Bilirubin AST ALT Alkaline Phosphatase Troponin I High Sens 5.4 Total Protein Albumin Globulin Albumin/Globulin Ratio Lipase SARS-CoV-2, RNA, NAAT Diagnostic Findings Echocardiogram obtained 01/26/2021: Normal LV systolic function with ejection fraction of 55-60%. Regional wall motion abnormality involving the base to mid inferior wall. Mild LVH. Chest x-ray obtained the time admission not reveal any acute cardiopulmonary disease ECG Additional Comments: EKG demonstrated normal sinus rhythm with a single PVC. Old inferior myocardial infarction. PG Care Time/CCT Total # of Minutes Spent Total Time Spent with Patient: Total time spent is greater than 50% in coordination of care (as documented) at patient's floor/unit and/or counseling patient: Coding Level of Care Code INP/OBS CONSULT LVL 4, 60 MIN Diagnoses Chest pain R07.9 CAD (coronary artery disease) I25.10
--- NOTE | 2022-10-12 15:28 | Electrocardiogram Report ---
Test Reason : Blood Pressure : / mmHG Vent. Rate : 072 BPM Atrial Rate : 072 BPM P-R Int : 198 ms QRS Dur : 088 ms QT Int : 380 ms P-R-T Axes : 064 048 061 degrees QTc Int : 416 ms Sinus rhythm with occasional Premature ventricular complexes and Premature atrial complexes Possible Left atrial enlargement Low voltage QRS Cannot rule out Inferior infarct (cited on or before 20-OCT-2020) Abnormal ECG When compared with ECG of 20-OCT-2020 07:26, Premature atrial complexes are now Present Nonspecific T wave abnormality no longer evident in Lateral leads Confirmed by Terence Holcomb ([id number]) on 10/12/2022 3:27:31 PM Referred By: REFERRED SELF Confirmed By:Darek Holcomb
[2022-10-12] MEDS ORDERED: diphenhydrAMINE Capsule 25 MG CAP PO SCH (21:00)
[2022-10-12] MEDS ORDERED: buPROPion XL 150 MG TABCR PO SCH (21:00)
--- NOTE | 2022-10-14 18:51 | Discharge Summary ---
Date of Service October 14, 2022 Admission HPI Per Admitting Provider Lopez Zafar is a pleasant 77-year-old male with history of hypertension, hyperlipidemia, diabetes, and known coronary artery disease status post [place] in October 2020 with ALVAREZ placement to RCA on dual antiplatelet therapy with aspirin and Plavix, ischemic cardiomyopathy with EF of 55 to 60%. Patient follows with cardiology, last seen in November 2021. Patient presents today with an episode of chest pain. He reports that he finished dinner around 20:00. He did have a couple Oreo thin cookies for dessert which have given him heartburn in the past. Around 20:50 he developed some chest tightness which he initially thought was indigestion. He took a Pepcid with no relief. His symptoms persisted for another hour and a half after which he informed his . She took his blood pressure at that time and noted to be elevated at approximately 200/102 with a heart rate of 84. Patient then took a nitroglycerin with some improvement in his pain. Several minutes later he took a second nitroglycerin. Pain continues to diminish and was resolved after approximately 20 minutes. He reports that his pain was substernal and left-sided, felt like pressure. He had some spasms radiating into his left arm. He also had some lightheadedness. Denies nausea, diaphoresis. Does report belching quite a bit which relieves some of the discomfort. Pain did not seem to be positional, pleuritic or exertional in nature. Presently with no chest pain. No additional complaints at this time In the ER patient afebrile, hemodynamically stable, no acute distress. ER course: Aspirin 324 mg Principal Diagnosis Chest pain Discharge Exam The patient is alert and oriented. Mood and affect appeared normal. He answered all questions appropriately. HEENT: Pupils are equal and reactive to light and accommodation. Extraocular movements are intact. The sclerae are anicteric. Neuro: Cranial nerves intact Neck: Patient's neck is supple. He has palpable carotid pulses bilaterally without bruits on auscultation. There is no evidence of jugular venous distention. The thyroid is not enlarged. Lungs: Clear to auscultation bilaterally. He has good air movement without use of accessory muscles. No rales wheezes or rhonchi. Cardiac: Heart demonstrates a regular rate and rhythm. Normal S1 and S2. No murmurs on examination. Pulses: The patient has palpable radial pulses bilaterally that are equal in intensity Extremities: There was no evidence of hypoperfusion. There is no cyanosis or clubbing. There is no edema. Skin: I did not appreciate any rashes on examination today. Discharge Data Allergies Allergy/AdvReac Type Severity Reaction Status Date / Time zolpidem [From Ambien] Allergy Severe Hallucinati Verified 10/12/22 00:18 ng metformin AdvReac Severe Diarrhea Verified 10/12/22 00:18 pramipexole [From Mirapex] AdvReac Unknown insomnia Verified 10/12/22 00:18 ropinirole AdvReac Unknown nasal Verified 10/12/22 00:18 congestion Consultations 10/12/22 01:50 ED Decision to Admit Stat 10/12/22 07:15 Consult Cardiology Routine 10/12/22 12:46 Consult Cardiology Routine Hospital Course (1) Chest pain: 77-year-old male with history of coronary artery disease status post inferior [place] in October 2020 with placement of drug-eluting stent to proximal mid RCA, hypertension, hyperlipidemia and diabetes presenting with episode of chest pain resolved with nitro x2. Patient does admit to missing 2 days of his medications. Presently chest pain-free. Troponin x3 = negative. EKG with no acute ischemic changes Consulted with the cardiology and the cardiology recommendation is as follows 1. Chest pain: The character of his symptoms is concerning for a coronary etiology. However, he had an extended episode of symptoms without any rise in his biomarkers. This would suggest that the etiology is not related to ischemia. Certainly possible that he had some gastrointestinal etiology as he has noticed this previously and admonished himself for eating so late in the evening last night. He has otherwise been active. Despite known residual cor onary disease he has not had other exertional symptoms. I do not think additional stress testing is necessary and may in fact be abnormal given his known residual disease. In the absence of different symptoms would suggest continuing his current medical regimen. 2. Coronary artery disease: Prevention with dual anti-platelet therapy and high-dose atorvastatin. Subsequently patient was discharged home to follow-up with his sporting goods salesperson (2) Hypertension: Blood pressure reportedly elevated prior to arrival. Well-controlled at present, 119/70 Continue lisinopril Continue to monitor (3) Diabetes: Patient with overall well-controlled diabetes. He is on Ozempic weekly. Last hemoglobin A1c on record in October 2020 = 6.5 Insulin sliding scale, goal blood sugar 110-140 Check hemoglobin A1c with a.m. labs Continue gabapentin 300 mg p.o. 3 times daily (4) Depression: Chronic. Well-controlled with home medications Continue bupropion 150 mg p.o. nightly (5) Hypercholesteremia: Chronic. Stable. Continue atorvastatin 80 mg p.o. daily (6) Restless leg syndrome: Chronic. Stable. Continue ropinirole 3.5 mg p.o. FENHep-Lock, electrolytes within normal limits, heart healthy diet as tolerated Ppx:Lovenox Codefull per discussion with patient Dispositionobservation of medical telemetry Total Time Total Time Spent Total Time Spent (In Minutes): 45 Discharge Plan Discharge Items Patient Disposition: Home - Home Health Services Reason For Visit: CHEST PAIN Discharge Diagnosis: chest pain Activity: Resume your previous activity Lifting: Gradually increase as tolerated Bathing: No limitations Sexual Activity: When tolerated Non-emergency contact: Primary Care Provider and Animal Anatomist Call non-emergency contact if: you have any medication questions Follow-up/Referrals: Leatha Farrell [Primary Care Provider] - Diet: Heart Healthy Addtl Attending Provider Instructions: please follow with your sporting goods salesperson in one or two weeks Pending Studies at Discharge: No Stand-Alone Forms: My [employer], Smoking Cessation Medications and DC Order Prescriptions: Continued clopidogrel 75 mg tablet 75 mg PO QAM Qty: 90 3RF triazolam 0.25 mg tablet 0.25 mg PO HS PRN (Reason: Insomnia) lisinopril [Zestril] 10 mg tablet 10 mg PO QAM Qty: 90 3RF diphenhydramine HCl 50 mg capsule 50 mg PO HS nitroglycerin 0.4 mg tablet, sublingual 0.4 mg sublingual Q5M PRN (Reason: chest pain) Qty: 30 1RF Rx Instructions: do not exceed 3 doses per episode mupirocin 2 % ointment 1 applic topical BID Qty: 22 8RF multivitamin Tablet 1 tab PO QAM bupropion HCl 75 mg Tablet 150 mg PO HS ropinirole 2 mg tablet 3.5 mg PO DIRECTED Rx Instructions: takes 1 mg in the afteronoon and 3 mg in the evening. atorvastatin 80 mg tablet 80 mg PO QAM Qty: 30 0RF aspirin 81 mg tablet,chewable 81 mg PO QAM aluminum hydrox-magnesium carb 160-105 mg tablet,chewable 2 tab PO DIRECTED PRN (Reason: Indigestion) oxybutynin chloride 5 mg tablet extended release 24 hr 5 mg PO BID cindi [id number] 300-8.3 mg Tablet 1 tab PO QAM Vicodin 325 mg PO BID Ozempic 0.25 mg or 0.5 mg(2 mg/1.5 mL) Pen Injector 0.25 mg SUBCUT WK Rx Instructions: SUNDAYS diclofenac sodium [Voltaren Arthritis Pain] 1 % Gel 1 ea TOPICAL UD PRN (Reason: Pain) Rx Instructions: as directed w/dosing card gabapentin 300 mg Capsule 300 mg PO TID PRN (Reason: Pain) Admission Data Admit Date/Time: 10/12/22 02:20 Attending Provider: Franco Castellanos Admit Provider: Ale Ibarra Primary Care Provider: Leatha Farrell Other Providers: Ale Ibarra ; Isaac Leach ; Abiel Serna ; Ranjit Pulido ; Papito Reynaga ; Cristobal Layne ; Bryson Larose Jr ; Andre James ; Rama Pearl ; Allison Dennis ; Diego uGardado ; Terence Holcomb ; Tay Blanchard ; Char Hsieh ; Zaynab Marin ; Huber Arambula ; Fred Abad Henry C. ; Papito Buckley V. Other Interventions: Discharge Summary Assessment (RN) Last Done: 10/12/22 15:18 Coding Level of Care Code HOSP INP/OBS DISCH >30 MIN Diagnoses Chest pain R07.9 Hypertension I10 Hypertension type: essential hypertension Diabetes E11.42 Diabetes mellitus type: type 2 Diabetes mellitus nursing home insulin use: without rat exterminator use Diabetes mellitus complication status: with neurologic complications Diabetes mellitus complication detail: with polyneuropathy Depression F32.9 Depression Type: unspecified Hypercholesteremia E78.00 Restless leg syndrome G25.81
== END 2022-10-12 15:18 | disposition home health service (06) ==
LOC: EDINP 23:47 → ED 23:47 → SUATTDRO 10-12 02:20 → EDINP 10-12 03:38
DX: Z79.899 Other long term (current) drug therapy; Z95.5 Presence of coronary angioplasty implant and graft; I10 Essential (primary) hypertension; Z79.02 Long term (current) use of antithrombotics/antiplatelets; G25.81 Restless legs syndrome; R07.9 Chest pain, unspecified; E11.42 Type 2 diabetes mellitus with diabetic polyneuropathy; I25.2 Old myocardial infarction; Z88.8 Allergy status to other drugs, medicaments and biological substances; Z79.82 Long term (current) use of aspirin; I25.10 Atherosclerotic heart disease of native coronary artery without angina pectoris; Z87.891 Personal history of nicotine dependence; E78.00 Pure hypercholesterolemia, unspecified

== ENCOUNTER 2024-01-09 07:51 | Observation (INO) ==
--- NOTE | 2023-12-13 12:04 | PAT Medication Instructions ---
Medication Instructions Date of Service December 13, 2023 Home Medications Medication Instructions Recorded atorvastatin 80 mg tablet 80 mg PO QAM #30 tabs 10/21/20 lisinopril 10 mg tablet (Zestril) 10 mg PO QAM #90 tabs 01/03/23 nitroglycerin 0.4 mg sublingual 0.4 mg sublingual Q5M PRN chest 01/15/23 tablet pain #30 tabs clopidogrel 75 mg tablet 75 mg PO QAM #90 tabs 04/10/23 bupropion HCl 75 mg tablet 150 mg PO HS multivitamin 1 tab PO QAM atorvastatin 80 mg tablet 80 mg PO QAM aspirin 81 mg chewable tablet 81 mg PO QAM ropinirole 2 mg tablet 2 mg PO BID aluminum hydrox-magnesium carb 160 mg-105 mg chewable tablet 2 tab PO DIRECTED PRN Indigestion diphenhydramine HCl 50 mg capsule 50 mg PO HS oxybutynin chloride 5 mg tablet,extended release 24 hr 5 mg PO BID diclofenac sodium 1 % topical gel (Voltaren Arthritis Pain) 1 ea topical UD PRN Pain semaglutide 0.25 mg or 0.5 mg (2 mg/1.5 mL) subcutaneous pen injector (Ozempic) 0.5 mg subcut WK gabapentin 300 mg capsule 900 - 1,200 mg PO DAILY PRN Pain lisinopril 10 mg tablet (Zestril) 10 mg PO QAM nitroglycerin 0.4 mg sublingual tablet 0.4 mg sublingual Q5M PRN chest pain clopidogrel 75 mg tablet 75 mg PO QAM hydrocodone 5 mg-acetaminophen 325 mg tablet 1 tab PO TID PRN Pain magnesium 1 tab PO QPM mupirocin 2 % topical ointment 1 applic topical BID PRN Rash tizanidine 4 mg tablet 4 mg PO HS PRN Muscle Spasm apple cider vinegar 300 mg tablet 900 mg PO DAILY coffee extract 100 mg-phosphatidyl serine 100 mg capsule ([employer] Original) 1 cap PO QAM docusate sodium 100 mg capsule (Colace) 100 mg PO QPM tamsulosin 0.4 mg capsule 0.4 mg PO HS Continue as directed gabapentin 300 mg capsule 900 - 1,200 mg PO DAILY PRN Pain (if needed) nitroglycerin 0.4 mg sublingual tablet 0.4 mg sublingual Q5M PRN chest pain (if needed) ASK your surgeon for instructions diclofenac sodium 1 % topical gel (Voltaren Arthritis Pain) 1 ea topical UD PRN Pain ASK your prescriber and surgeon clopidogrel 75 mg tablet 75 mg PO QAM (will need to hold Plavix/clopidogrel for at least 7 days prior to surgery in order to get spinal anesthesia) STOP taking 2 weeks before surgery apple cider vinegar 300 mg tablet 900 mg PO DAILY coffee extract 100 mg-phosphatidyl serine 100 mg capsule ([employer] Original) 1 cap PO QAM STOP 7 days before surgery semaglutide 0.25 mg or 0.5 mg (2 mg/1.5 mL) subcutaneous pen injector (Ozempic) 0.5 mg subcut WK STOP taking 24 hours before surgery mupirocin 2 % topical ointment 1 applic topical BID PRN Rash DO NOT take the morning of surgery multivitamin 1 tab PO QAM aluminum hydrox-magnesium carb 160 mg-105 mg chewable tablet 2 ta lisinopril 10 mg tablet (Zestril) 10 mg PO QAM Take morning of surgery With a small sip of water, OTHERWISE NOTHING TO EAT OR DRINK AFTER MIDNIGHT: atorvastatin 80 mg tablet 80 mg PO QAM ropinirole 2 mg tablet 2 mg PO BID hydrocodone 5 mg-acetaminophen 325 mg tablet 1 tab PO TID PRN Pain (if needed) Take evening before surgery bupropion HCl 75 mg tablet 150 mg PO HS ropinirole 2 mg tablet 2 mg PO BID aluminum hydrox-magnesium carb 160 mg-105 mg chewable tablet 2 tab PO DIRECTED PRN Indigestion (if needed) diphenhydramine HCl 50 mg capsule 50 mg PO HS oxybutynin chloride 5 mg tablet,extended release 24 hr 5 mg PO BID hydrocodone 5 mg-acetaminophen 325 mg tablet 1 tab PO TID PRN Pain (if needed) magnesium 1 tab PO QPM tizanidine 4 mg tablet 4 mg PO HS PRN Muscle Spasm (if needed) docusate sodium 100 mg capsule (Colace) 100 mg PO QPM tamsulosin 0.4 mg capsule 0.4 mg PO HS Other Notes If you have any questions please call us at [phone] or [phone] or [phone] or [phone]
--- NOTE | 2023-12-18 11:10 | Anesthesiology Consultation ---
Date of Service December 18, 2023 Assessment & Plan (1) Encounter for pre-operative examination: - check BSG am DOS. - cardiology pre-op 12/19/23 [place]: "...CAD post inferior STEMI treated with primary PCI 10/2020, mitral regurgitation, type 2 diabetes on oral therapy, hypertension, and dyslipidemia who presents for preoperative cardiovascular evaluation prior to right knee replacement on 01/09/[address] Ricardo...currently stable and asymptomatic from a cardiovascular standpoint with no anginal symptoms occurring at >4 METS of activity. He has no evidence of CHF or significant valvular abnormality. He is therefore at an acceptable risk to proceed with upcoming surgery without any additional cardiovascular testing or intervention. He can hold his Plavix 7 days prior to surgery and resume once safe from a bleeding standpoint. He should remain on low dose aspirin throughout the perioperative period..." - semaglutide instructions: Patient informed at PAT visit to stop 7 days prior to surgery- voiced understanding. Patient advised to check with prescriber to see if alternative diabetic management changes recommended while holding semaglutide- if so, patient to call back to PAT to update chart and discuss if any further preop medication instructions needed. - Outpatient joint assessment: Patient is currently scheduled for inpatient pathway. If re-evaluated and patient/surgeon requests outpatient pathway, patient is not recommended candidate for outpatient joint program from anesthesia standpoint. Chart Review Chart Review: Acceptable Risk for Surgery and Patient seen in Pre Admission Testing Teaching & Discussion Pre-Anesthesia Teaching/Discussion Notes: Instructed NPO after midnight before surgery, except medications with 15 cc of water. Medication instructions provided according to the PAT guidelines. History Surgery Operation Date: 01/09/24 11:20 Proposed Procedures p Right Total Knee Arthroplasty - Dileep Ricardo MD Height/Weight Height: 5 ft 7 in Weight: 77.5 kg Allergies Allergy/AdvReac Type Severity Reaction Status Date / Time glimepiride Allergy Intermediate hypoglycemi Verified 12/19/23 11:41 a metformin Allergy Unknown Rash all Verified 12/19/23 11:41 over and Diarrhea zolpidem [From Ambien] Allergy Unknown Hallucinati Verified 12/19/23 11:41 ng ropinirole AdvReac Mild nasal Verified 12/19/23 11:41 congestion pramipexole [From Mirapex] AdvReac Unknown insomnia, Verified 12/19/23 11:41 shortness of breath Medications Home Medications Medication Instructions Recorded Confirmed Last Taken bupropion HCl 75 mg tablet 150 mg PO HS 07/26/18 12/19/23 10/13/23 multivitamin 1 tab PO QAM 07/26/18 12/19/23 10/13/23 atorvastatin 80 mg tablet 80 mg PO QAM #30 tabs 10/21/20 12/19/23 10/13/23 aspirin 81 mg chewable tablet 81 mg PO QAM 10/27/20 12/19/23 10/12/23 ropinirole 2 mg tablet 2 mg PO BID 10/27/20 12/19/23 10/13/23 aluminum hydrox-magnesium carb 160 2 tab PO DIRECTED PRN 12/26/20 12/19/23 10/13/23 mg-105 mg chewable tablet Indigestion oxybutynin chloride 5 mg 5 mg PO BID 11/30/21 12/19/23 10/13/23 tablet,extended release 24 hr diclofenac sodium 1 % topical gel 1 ea topical UD PRN Pain 02/23/22 12/19/23 (Voltaren Arthritis Pain) semaglutide 0.25 mg or 0.5 mg (2 0.5 mg subcut WK 02/23/22 12/19/23 09/30/23 mg/1.5 mL) subcutaneous pen injector (Ozempic) gabapentin 300 mg capsule 900 - 1,200 mg PO DAILY PRN Pain 10/12/22 12/19/23 10/13/23 lisinopril 10 mg tablet (Zestril) 10 mg PO QAM #90 tabs 01/03/23 12/19/23 10/13/23 nitroglycerin 0.4 mg sublingual 0.4 mg sublingual Q5M PRN chest 01/15/23 12/19/23 Unknown tablet pain #30 tabs clopidogrel 75 mg tablet 75 mg PO QAM #90 tabs 04/10/23 12/19/23 10/12/23 hydrocodone 5 mg-acetaminophen 325 1 tab PO TID PRN Pain 06/03/23 12/19/23 10/13/23 mg tablet magnesium 1 tab PO QPM 06/03/23 12/19/23 10/13/23 mupirocin 2 % topical ointment 1 applic topical BID PRN Rash 06/03/23 12/19/23 10/13/23 tizanidine 4 mg tablet 4 mg PO HS PRN Muscle Spasm 06/03/23 12/19/23 10/13/23 apple cider vinegar 300 mg tablet 900 mg PO DAILY 10/09/23 12/19/23 10/13/23 coffee extract 100 mg-phosphatidyl 1 cap PO QAM 10/09/23 12/19/23 10/13/23 serine 100 mg capsule (Neuriva Original) docusate sodium 100 mg capsule 100 mg PO QPM 10/09/23 12/19/23 10/13/23 (Colace) tamsulosin 0.4 mg capsule 0.4 mg PO HS 12/09/23 12/19/23 Unknown Past Medical History Medical History CAD (coronary artery disease) s/p 2 stents to RCA and LAD 2020 Chronic back pain Constipation Depression Diabetes mellitus, type 2 on ozempic weekly History of colon polyps unsure Hyperlipidemia Hypertension controlled, stable per pt Indigestion Lumbar spinal stenosis T12-L1 On anticoagulant therapy plavix daily Osteoarthritis Overactive bladder Restless leg syndrome Sleep apnea can't tolerate cpap. STEMI (ST elevation myocardial infarction) 2020--follows with Dr. Guardado Patient denies h/o stroke, seizures, heart failure, blood clots/DVTs or blood transfusions. Exercise / Class Metabolic Activity II 4-5 Yardwork/Stairs/Walk up hill (denies chest discomfort or shortness of breath with 1 FOS) Past Family History Family History Father Heart disease Other Allergies Family history non-contributory No family history of adverse response to anesthesia No family history of bleeding disorder Denies family history of Hearing loss Cancer Hypertension Stroke Asthma Past Surgical History Surgical History History of surgery Left first dorsal compartment release 10/14/23 [facility] [place] History of hand surgery right thumb reconstruction History of cardiac cath 10/2020 @ [facility], x 2 stents. History of bilateral carpal tunnel release Hx of colonoscopy Stented coronary artery 10/2020 @ [facility] to RCA and LAD History of bunionectomy of right great toe History of back surgery X4 - FUSION AND DISECTOMIES H/O hemorrhoidectomy History of tonsillectomy History of cholecystectomy H/O shoulder surgery lt. Past Anesthesia History No Family Hx of Anesthesia Complications and Other (difficulty voiding post-op) History of PONV No Hx of PONV and No Hx of Motion Sickness Social History Smoking Status: Former smoker tobacco type: cigarettes Do You Dip or Chew Tobacco: Yes (on occ/advised npo) Smoking End Date: 30 years ago Hx Alcohol Use: No Hx Substance Use: No substance use type: does not use Review of Systems Patient denies chest pain, shortness of breath, dyspnea on exertion, fever, chills, cough, wheezing, or palpitations. Physical Exam Vital Signs Vitals BP 140/80 P 72 TEMP 98.1 SP02 95% on RA RESP 18 Physical Patient resting comfortably in chair in no acute distress, alert and oriented, responding appropriately throughout visit Full cervical extension range of motion without pain TMD 3.5 finger breadths Mallampati Score 2 Dentition: several caps, denies chipped or loose teeth, crowns, implants or bridges Lungs: normal respiratory effort. Good air movement, clear throughout to auscultation, no adventitious breath sounds Cardiac: regular rate and rhythm, no murmurs noted Carotid arteries: negative bruit bilat Lab Results Anesthesia Preop Results Results Anesthesia Widget: WBC 7.60 K/ul (4.8-10.8) 12/18/23 Hgb 14.8 g/dl (14.0-18.0) 12/18/23 Hct 42.7 % (42.0-52.0) 12/18/23 Plt 186 K/uL (130-400) 12/18/23 PT 11.3 Seconds (9.0-12.0) 12/18/23 PTT 30 Seconds (21-31) 12/18/23 INR 1.0 (0.9-1.1) 12/18/23 Urine Color Dark Yellow 12/18/23 Urine Appearance Clear (Clear) 12/18/23 Urine pH 5.0 (4.5-7.5) 12/18/23 Urine Specific [place] 1.033 (1.000-1.030) H 12/18/23 Urine Protein Negative (Negative) 12/18/23 Urine Glucose (UA) Negative (Negative) 12/18/23 Urine Ketones Trace (Negative) H 12/18/23 Urine Blood Negative (Negative) 12/18/23 Urine Nitrite Negative (Negative) 12/18/23 Urine Bilirubin Negative (Negative) 12/18/23 Urine Urobilinogen Negative (Negative) 12/18/23 Urine Leukocyte Esterase Negative (Negative) 12/18/23 Blood Type O Positive 12/18/23 Antibody Screen NEGATIVE 12/18/23 Testing Laboratory Results 12/13/23 SODIUM: 143 POTASSIUM: 4.3 CHLORIDE: 103 CO2: 23 BUN: 19 CREATININE: 0.8 GLUCOSE: 112 A1c: 6% TSH: 1.36 Electrocardiogram Date: 12/18/23 NSR with sinus arrhythmia, rate 72 bpm Low voltage QRS Cannot rule out anterior infarct, cited on or before 10/20/20 Echocardiogram Date: 01/26/21 EF 55-60% Base to mid inferior, basal septal hypokinesis (mild to moderate) Mild cLVH No significant valvular pathology Cardiac Catheterization Date: 10/21/20 LM -normal caliber, 20% distal disease LAD -medium caliber, mildly calcified, diffuse up to 70% proximal to mid disease extending across second diagonal. Distal vessel small and tapers prior to apex. Small first diagonal with 70% ostial stenosis. D2 without significant disease. Circumflex -medium caliber, 40% mid segment disease. Small distal vessel into small left PLB. Medium caliber OM 2 with 50% proximal stenosis. RCA -dominant, medium caliber, 100% acute earlymid RCA occlusion. Distal right PLB partially fills via [id number] collaterals. Successful PCI of proximal to mid LAD with single drug-eluting stent (2.5 x 26 mm [place]; postdilated with 3.0 NC)-PTCA of ostium of jailed D1 with 2.0 Other Testing Low dose lung CT 12/21/22 No suspicious pulmonary nodules. No change in two low suspicion point nodules since chest CT of December 20, 2021. These can be assessed on routine annual screening CT. Lung RADS Category: 2 - Benign appearance or behavior - Nodules with a very low likelihood of becoming a clinically active cancer due to size or lack of growth. Continue annual screening.
--- NOTE | 2023-12-20 16:39 | History & Physical Report ---
Date of Service December 20, 2023 Assessment & Plan (1) Osteoarthritis of right knee: Plan: PRE-OP Diagnosis: Right knee osteoarthritis Planned Procedure: Right total knee arthroplasty Plan: Patient is scheduled to undergo this procedure at the [facility] with Dr. Ricardo on December. Risks and complications of the procedure such as: Infection, bleeding, pain, scarring, nerve blood vessel damage, weakness, wound problems, stiffness, incomplete relief of symptoms, hardware failure, hardware loosening, wear, fracture, tendon or ligament injury, blood clots, embolism, cardiac, stroke and were explained to the patient at his visit today and informed consent for the procedure was obtained. Patient also understands risks of proceeding with surgical intervention during the COVID-19 pandemic. Currently he is asymptomatic and states that he has not been in contact with anyone positive for the virus recently. We will need to obtain preoperative medical clearance from the patient's primary care provider and maintenance of way superintendent. Patient is scheduled to meet with anesthesia at the hospital later today. While there he will obtain a CBC with differential, complete metabolic panel, PT/INR, blood type and screen, urinalysis, urine culture and sensitivity, EKG and a nasal culture for MRSA. His hemoglobin A1c is currently up-to-date. During today's visit we reviewed the total knee packet. I provided the patient with paperwork to obtain obtaining a handicap placard for his vehicle. I provided him with information about lectures offered by [facility] in regards to joint replacement surgery. I provided him with an order to obtain a walker. I recommended that he purchase a shower chair and raised toilet seat. We discussed discharge planning from the hospital. Patient states he will most likely do in-home physical therapy for the first 2 weeks before transitioning to outpatient physical therapy. I advised the patient that he will be provided with a prescription for narcotic pain medication for postoperative pain control. We will have him on his Plavix and aspirin daily for the first 30 days postoperatively for blood clot prevention. Patient be scheduled for 2-week postoperative follow-up visit with myself on January 22, 2024. This chart was completed utilizing [employer] ([place] voice recognition software. Grammatical errors, random word insertions, pronoun errors, and in complete se ntences are an occasional consequence of the system. Any questions or concerns about the content, text, or information contained within the body of this dictation should be addressed directly to the physician for clarification. History of Present Illness Chief Complaint: Chief Complaint: Right knee pain Primary Care Provider: Leatha Farrell History of Present Illness (including history relevant to procedure): This 78 yo M present to the clinic today for his preoperative history and physical examination. He has severe pain in his right anteromedial knee when walking, especially on uneven ground. [facility] and takes 3 tablets a day and takes Tylenol as needed. Patient notices swelling and denies radiating pain. He has no allergy to latex or rubber gloves. Patient has Type II diabetes and is on Ozempic. He his on Plavix. His electing to proceed with surgical intervention at this time Review Of Systems: 12 point review of systems is performed and is unremarkable except for those things stated in the HPI past medical history. 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 COPD type A Depression, major, recurrent, mild Pain in left shoulder Right hip pain History of lumbar fusion Right hand pain De Quervain's tenosynovitis, right Right wrist pain Arthritis of carpometacarpal (CMC) joints of both thumbs Osteoarthritis Optic nerve cupping of both eyes Neuropathy DJD, SITE UNSPECIFIED Back pain Hypercholesterolemia Restless legs syndrome (RLS) MIGRAINE Anxiety Chronic pain Collar bone Lumbar microdiscectomy Lumbar spinal fusion Leg DC (mitral incompetence) Procedure History Procedure Procedure Date Comments MRI- lumbar Procedure - heart stents MRI of joint of right lower extremity - MRI RT LOWER JOINT W/O CONTRAST 1. Osteoarthritis2. Complex tear of the medial meniscus.3. Mucoid degeneration ACL.4. Small Carlos's cyst. de Quervain's disease of left wrist 10/14/2023 - Left First Dorsal Compartment Release CT of lungs 12/21/2022 - Impression: No suspicious pulmonary nodules. NO change in two suspicio point nodules since chest CT of December 20, 2021. These can be assessed on routine annual screening CT. Lung RADS Category 2- Benign appearance or behavoir- nodules with a very low likelihood of becoming a clinically active cancer due to sie or lack of growth. Continue annual screening. CT of chest- lung screening 12/20/2021 - IMPRESSION: 1. There is no airspace consolidation or pleural effusion.2. There are at least 2 low suspicion subcentimeter pulmonary nodules as above. Attention at follow-up is recommended.3. Advanced coronary artery calcification.4. Additional findings as above.Overall Lung RADS Category: 2 - Benign appearance or behavior - Nodules with a very low likelihood of becoming a clinically active cancer due to size or lack of growth. Continue annual screening. Polysomnograph 05/05/2021 - ImpressionSevere sleep apnea corrected with BiPAP 05/21 Colonoscopy 08/18/2019 - f/u 5 years - Impression- Diverticulosis in the sigmoid colon- One 3mm polyp in the transverse colon, removed PFT 06/30/2019 - Mild obstructive airways disease with very slight improvement after inhaled bronchodilator Injection 09/07/2016 Injection(s), anesthetic agent and/or steroid, transforaminal epidural, with imaging guidance (fluoroscopy or CT); lumbar or sacral, single level 04/23/2016 Injection(s), anesthetic agent and/or steroid, transforaminal epidural, with imaging guidance (fluoroscopy or CT); lumbar or sacral, single level 02/01/2015 Injection(s), anesthetic agent and/or steroid, transforaminal epidural, with imaging guidance (fluoroscopy or CT); lumbar or sacral, single level 09/02/2014 - Right L2 selective nerve root injection Lumbar epidural steroid injection 06/01/2014 Decompression laminectomy 2011 - neurogenic claudication - L4-5 laminectomy with hardware and rbone graft and emoval of old S1 fusion hardware Fusion of lumbar spine Before 2011 - L5-S1 removal hardware in back, fusion 06/30/2012 Right Bunionectomy Before 2010 Injection(s), anesthetic agent and/or steroid, transforaminal epidural, with imaging guidance (fluoroscopy or CT); lumbar or sacral, single level 10/02/2010 - right L3 History of shoulder surgery, right Before 2009 colonoscopy 08/2009 Excision of basal cell carcinoma 05/2008 - ED&C Discectomy 11/2007 Epidural steroid injection, caudal 08/01/2007 - also 10/20/07, 07/24, 01/22 Cholecystectomy 2006 Hemorrhoid operation 1999 Back fusion 1990 - L4 L5 Clavicle, right repair 1987 Allergies and Sensitivities: Ambien(hallucinations, sleep walking) metFORMIN(rash) Mirapex(insomnia) rOPINIRole(nasal congestion) Current Home Meds: (Last Updated 12/17 09:53) albuterol (albuterol CFC free 90 mcg/inh MDI) 2 puff inhaled qid PRN: as needed for wheezing or SOB aspirin 81 mg PO Daily atorvastatin (atorvastatin 80 mg oral tablet) 1 tab PO Daily buPROPion (Wellbutrin 75 mg oral tablet) 150 mg PO Daily clopidogrel (clopidogrel 75 mg oral tablet) 75 mg PO Daily diclofenac topical (diclofenac 1% topical gel) APPLY 2 GRAMS TOPICALLY TO AREA AROUND CMC JOINT 4 TIMES DAILY NEEDED FOR PAIN famotidine (Pepcid) PO Pre Event fluticasone nasal (fluticasone 50 mcg/inh nasal spray) 2 spray intranasal Daily as needed for nasal pain/congestion gabapentin (gabapentin 300 mg oral capsule) 1 cap PO qAm and 2 caps qPM. hydrocortisone topical (Anusol-HC 2.5% topical cream) 1 appl topical tid apply in a thin film to the affected skin and rub in gently and completely, around perianal ketoconazole topical (ketoconazole 2% topical shampoo) 1 appl topical Daily apply to scalp lisinopril (lisinopril 10 mg oral tablet) 10 mg PO Daily multivitamin 1 tab PO Daily nitroglycerin (nitroglycerin 0.4 mg sublingual tablet) 0.4 mg SL q5min PRN: as needed for chest pain rOPINIRole (rOPINIRole 2 mg oral tablet) TAKE ONE TABLET BY MOUTH, TOGETHER WITH 0.5 MG PILLS1 to 3 hours before bedtime semaglutide (Ozempic (0.25 mg or 0.5 mg dose) 2 mg/3 mL subQ pen) 0.5 mg subQ q7days ROTATE INJECTION SITES solifenacin 5 mg PO Daily sumatriptan (sumatriptan 50 mg oral tablet) 50 mg PO ONCE PRN: as needed for migraine headache tamsulosin (tamsulosin 0.4 mg oral capsule) 0.4 mg PO Daily triamcinolone topical (triamcinolone 0.1% topical lotion) 1 appl topical bid apply to scalp triamcinolone topical (triamcinolone 0.1% topical ointment) 1 appl topical bid apply to legs No Vital Signs Data Available Initial Wt: Temp: 36.3; pulse: 86; blood pressure: 110/64; oxygen saturation: 94% Studies (relevant to the procedure): X-ray imaging: Long leg alignment films and 3 views of the right knee obtained show Varus alignment. Small bone spurs off patella. PA flex view shows near [id number] arthritis in the medial compartment of the knee Allergies Allergy/AdvReac Type Severity Reaction Status Date / Time glimepiride Allergy Intermediate hypoglycemi Verified 12/19/23 11:41 a metformin Allergy Unknown Rash all Verified 12/19/23 11:41 over and Diarrhea zolpidem [From Ambien] Allergy Unknown Hallucinati Verified 12/19/23 11:41 ng ropinirole AdvReac Mild nasal Verified 12/19/23 11:41 congestion pramipexole [From Mirapex] AdvReac Unknown insomnia, Verified 12/19/23 11:41 shortness of breath Home Medications Medication Instructions Recorded Confirmed Type bupropion HCl 75 mg tablet 150 mg PO HS 07/26/18 12/19/23 History multivitamin 1 tab PO QAM 07/26/18 12/19/23 History atorvastatin 80 mg tablet 80 mg PO QAM #30 tabs 10/21/20 12/19/23 Rx aspirin 81 mg chewable tablet 81 mg PO QAM 10/27/20 12/19/23 History ropinirole 2 mg tablet 2 mg PO BID 10/27/20 12/19/23 History aluminum hydrox-magnesium carb 160 2 tab PO DIRECTED PRN 12/26/20 12/19/23 History mg-105 mg chewable tablet Indigestion oxybutynin chloride 5 mg 5 mg PO BID 11/30/21 12/19/23 History tablet,extended release 24 hr diclofenac sodium 1 % topical gel 1 ea topical UD PRN Pain 02/23/22 12/19/23 History (Voltaren Arthritis Pain) semaglutide 0.25 mg or 0.5 mg (2 0.5 mg subcut WK 02/23/22 12/19/23 History mg/1.5 mL) subcutaneous pen injector (Ozempic) gabapentin 300 mg capsule 900 - 1,200 mg PO DAILY PRN Pain 10/12/22 12/19/23 History lisinopril 10 mg tablet (Zestril) 10 mg PO QAM #90 tabs 01/03/23 12/19/23 Rx nitroglycerin 0.4 mg sublingual 0.4 mg sublingual Q5M PRN chest 01/15/23 12/19/23 Rx tablet pain #30 tabs clopidogrel 75 mg tablet 75 mg PO QAM #90 tabs 04/10/23 12/19/23 Rx hydrocodone 5 mg-acetaminophen 325 1 tab PO TID PRN Pain 06/03/23 12/19/23 History mg tablet magnesium 1 tab PO QPM 06/03/23 12/19/23 History mupirocin 2 % topical ointment 1 applic topical BID PRN Rash 06/03/23 12/19/23 History tizanidine 4 mg tablet 4 mg PO HS PRN Muscle Spasm 06/03/23 12/19/23 History apple cider vinegar 300 mg tablet 900 mg PO DAILY 10/09/23 12/19/23 History coffee extract 100 mg-phosphatidyl 1 cap PO QAM 10/09/23 12/19/23 History serine 100 mg capsule (Neuriva Original) docusate sodium 100 mg capsule 100 mg PO QPM 10/09/23 12/19/23 History (Colace) tamsulosin 0.4 mg capsule 0.4 mg PO HS 12/09/23 12/19/23 History Past Med/Surg History Medical History CAD (coronary artery disease) s/p 2 stents to RCA and LAD 2020 Chronic back pain Constipation Depression Diabetes mellitus, type 2 on ozempic weekly History of colon polyps unsure Hyperlipidemia Hypertension controlled, stable per pt Indigestion Lumbar spinal stenosis T12-L1 On anticoagulant therapy plavix daily Osteoarthritis Overactive bladder Restless leg syndrome Sleep apnea can't tolerate cpap. STEMI (ST elevation myocardial infarction) 2020--follows with Dr. Guardado Surgical History History of surgery Left first dorsal compartment release 10/14/23 [facility] History of hand surgery right thumb reconstruction History of cardiac cath 10/2020 @ [facility], x 2 stents. History of bilateral carpal tunnel release Hx of colonoscopy Stented coronary artery 10/2020 @ [facility] to RCA and LAD History of bunionectomy of right great toe History of back surgery X4 - FUSION AND DISECTOMIES H/O hemorrhoidectomy History of tonsillectomy History of cholecystectomy H/O shoulder surgery lt. Family History Father Heart disease Other Allergies Family history non-contributory No family history of adverse response to anesthesia No family history of bleeding disorder Denies family history of Hearing loss Cancer Hypertension Stroke Asthma Social History Smoking Status: Former smoker Tobacco Type: Cigarettes and Smokeless Tobacco (Dip or Chew) packs per day: 1; Second Hand Exposure: No; Do You Dip or Chew Tobacco: Yes (on occ/advised npo); Hx Alcohol Use: No Hx Substance Use: No Preferred Language: Georgian Communication Ability: Effective Communication Ability Comment: phone interview with pt . 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 Extraocular movements are intact Throat: Posterior oropharynx clear with absence of edema, erythema or exudate. Dentition is appropriate Cardiac: Regular rate and rhythm with no murmurs or gallops appreciated Lungs: Clear to auscultation throughout with no wheezing, rales or rhonchi Abdomen: Mildly obese, nondistended, nontender with NABS Extremities: Right knee: Range of motion is from 5 degrees of extension to about 110 degrees. There is visible varus malalignment. There is crepitation with passive range of motion and medial joint line tenderness when the knee is palpated in the flexed position. I was unable to manipulate the patella due to arthritic change. There is no laxity with varus or valgus stressing. AP drawer sign and Jael test are negative. Patient is neurovascular intact. Neuro: Cranial nerves II through XII are intact no motor or sensory deficit Skin: Normal in appearance no open skin areas or discharge
[~2024-01-09 07:51] MED LIST changes: -ACET-1256 PO; -ASPCH81X PO; -ATOR-22 PO; -BUPIVACAINE 0.25% 30 ML VIAL ONE; +BUPIVACAINE 0.5 % 5 MG/1 ML PF 10ML VIAL ONE; -BUPR75TA20 PO; -GLIM2TAB2 PO; -IOPAMIDOL INJ 61% 15 ML VIAL ONE; -LIDOCAINE HCL 1% MPF 5 ML VIAL ONE; -LISI-461 PO; +MIDAZOLAM HCL 1 MG/ML 2ML VIAL ONE; -MULT-506 PO; -NRN/600 PO; +PROPOFOL IV EMULSION 10 MG/ML 20 ML VIAL IV ONE; +ROPIVACAINE 0.5% 5 MG/ML 30 ML VIAL ONE; -RQP/2 PO; -TAMS0.4C38 PO; +fentaNYL citrate PF 100 MCG/2 ML VIAL ONE
[2024-01-09] MEDS: LR 500ML BOLUS, THEN 15ML/HR IV SCH (08:25)
--- NOTE | 2024-01-09 08:36 | History & Physical Bridge Note ---
Date of Service January 09, 2024 History & Physical Bridge Note I have examined the patient, reviewed the History & Physical and in the interval since the performance of the History & Physical I have noted the following changes of clinical significance: no changes noted
[2024-01-09] MEDS ORDERED: ONDANSETRON INJ 2 MG/ML 2 ML VIAL IV PRN ×2 (08:40→11:24)
[2024-01-09] MEDS ORDERED: ATROPINE SULFATE 0.1 MG/ML 10ML SYR IV PRN (08:40)
[2024-01-09] MEDS ORDERED: ePHEDrine sulfate 50 MG/ML AMP IV PRN (08:40)
[2024-01-09] MEDS ORDERED: DROPERIDOL 5 MG/2 ML VIAL IV PRN (08:40)
[2024-01-09] MEDS: ACETAMINOPHEN 500 MG TAB PO SCH ×2 (08:56→15:12)
[2024-01-09] MEDS: FAMOTIDINE 20 MG TAB PO SCH (08:56)
[2024-01-09] MEDS: CeleBREX 200 MG CAP PO SCH (08:56)
[2024-01-09] MEDS: traMADol HCL 50 MG TABLET PO SCH (08:56)
[2024-01-09] MEDS: Scopolamine 1 MG TDSY TD SCH (08:57)
[2024-01-09] MEDS: LR 60ML/HR IV SCH (08:57)
[2024-01-09] MEDS: TRANEXAMIC ACID 1,000 MG **IV Pre-op IV SCH (08:58)
[2024-01-09] MEDS: ceFAZolin 2000MG 2,000 MG/15 ML SYR IV SCH ×2 (09:21→18:28)
[2024-01-09] MEDS ORDERED: SUGAMMADEX SODIUM 200 MG/2 ML VIAL IV ONE (09:41)
[2024-01-09] MEDS ORDERED: ROCURONIUM BROMIDE 10 MG/ML 5 ML VIAL IV ONE (09:41)
[2024-01-09] MEDS ORDERED: DEXAMETHASONE SOD INJ 4 MG/ML VIAL ONE (09:41)
[2024-01-09] MEDS ORDERED: ONDANSETRON INJ 2 MG/ML 2 ML VIAL ONE (09:41)
[2024-01-09] MEDS ORDERED: fentaNYL citrate PF 100 MCG/2 ML VIAL ONE (09:49)
[2024-01-09] MEDS: ROPIVACAINE 0.5% HCL/PF 246 MG, Ketorolac (*for OR use only*) 30 MG, EPINEPHrine 30MG/3... INFIL SCH (09:53)
[2024-01-09] MEDS ORDERED: ePHEDrine sulfate 50 MG/5 ML SYR ONE (10:36)
[2024-01-09] MEDS: TRANEXAMIC ACID 1,000 MG **IV Intra-op IV SCH (10:43)
[2024-01-09] MEDS ORDERED: PHENYLEPHRINE HCL 10 MG/ML VIAL ONE (10:45)
--- NOTE | 2024-01-09 11:14 | Operative Report ---
Post Operative Report Pre & Post Diagnosis Operation Date: 01/09/24 09:10 Pre-Op Diagnosis: Right Knee Osteoarthritis Post-Op Diagnosis: Right Knee Osteoarthritis I identified the patient and participated in the time-out.: Yes Procedure Operation Date: 01/09/24 09:10 Actual Procedures p Right Total Knee Arthroplasty(Right) - Dileep Ricardo MD Surgeon Dileep Ricardo MD Cloth Bleaching Range Operator Chief Dhara Blum PA-C. No resident or fellow was available to assist. Estimated Blood Loss 100 Findings Consistent with Post-Op Diagnosis Specimens Right knee bone and soft tissue contents Anesthesia Type General Complications none Disposition Disposition: Recovery Room Indications 78-year-old male with right knee osteoarthritis refractory to conservative management. X-rays demonstrate [id number] disease in the medial compartment and tricompartmental osteophyte formation. I had a long discussion with him about the diagnosis and treatment options. After reviewing the risks and benefits of surgery, alternatives, and expected outcomes he elected to proceed. All questions were answered. Informed consent was signed. Description of Procedure Patient was identified in the preoperative holding area where the surgical site, right knee, was marked. Spinal anesthetic was attempted by anesthesia, however was unsuccessful. Patient was brought back to the operating room, placed on the operating room table, and general anesthesia was administered. All bony prominences were padded. Perioperative antibiotics and tranexamic acid were administered. Exam under anesthesia was performed. This demonstrated patient's range of motion arc to be 5 to 105 degrees. He was stable to varus valgus stress test at 30 degrees. This demonstrated patient's range of motion arc to be the surgical site was prepped and draped in the normal sterile fashion. Prior to incision a multidisciplinary timeout was called. All in the room were in agreement. We began by exsanguinating the limb with an Esmarch bandage. Tourniquet was inflated to 250 mmHg. A 14 cm long incision was made over the anterior aspect of the knee. I dissected through the subcutaneous tissues to the level of the fascia. Full-thickness flaps were raised above the fascia. A median parapatellar arthrotomy was made. Half the fat pad was excised. A medial release was performed with Bovie electrocautery on the proximal tibia. Synovitis in the knee and suprapatellar pouch was removed. The patella was then everted and held with 2 towel clips. The thickness of the patella was measured at 25 mm. Patellar resection was performed. Caliper showed the patella thickness now to be 15 mm. A size 41 trial was placed and had a great fit. The 3 drill holes were placed then the trial button was placed. The patellar thickness was now 25 mm which I was very happy with. The patellar trial was then removed, and the knee was flexed up. Retractors were placed to protect the MCL and LCL. Osteophytes were removed from the femoral condyles and intercondylar notch. The ACL and PCL were excised. Intramedullary drill guide was drilled into the femur. Distal femoral cutting guide was placed set at 5 degrees of valgus to resect 10 mm off the distal femur. Distal femoral resection was made without difficulty. The tibia was then exposed. The lateral meniscus was sharply excised. The tibial cutting jig was positioned in line with the tibial shaft in the coronal plane and with 3 degrees of posterior slope in the sagittal plane to resect 5 mm off the more involved compartment. The jig was then pinned in position and the tibial cut was made. We then brought the knee into full extension. Lamina spreaders were placed. The medial meniscus was excised. The extension block was then placed for 5 mm thickness poly. This gave us full extension and excellent stability to varus and valgus stress. Next the extension block was removed, the knee was flexed up, collateral ligaments were protected, and the epicondylar axis and Whitesides line were marked out on the distal femoral cut. Femoral sizing guide was placed. External rotation was set at 3 degrees so that the posterior cut would be parallel with the epicondylar axis and perpendicular with Whitesides line. The patient sized to a size 7 femur. 2 pins were then placed through the jig into the distal femur. The jig was removed and the appropriately sized 4-in-1 cutting jig was placed over the pins, then fixated to the bone using threaded, headed pins. We confirmed that we would not notch the femur with our anterior cut. Our 4 cuts were then made. The cutting jig was removed. The flexion block was then placed with the knee held at 90 degrees. There was excellent stability to varus and valgus at 90 degrees with no gapping medially or late rally. Next the box cutting jig was placed on the distal femur. The box cut was made and the femoral trial was impacted into position. Lug holes were drilled in the distal femur. We then reexposed the tibia. The tibia was sized to a 7 for a fixed-bearing component. The tibial tray with a 5 mm thickness polyethylene liner was placed on the cut tibial surface and the knee was brought through a full range of motion. There was excellent stability to varus valgus stress throughout a full range of motion, which was approximately 0-120 degrees. Bovie electrocautery was used to renzo the tibia at the site where the tibial tray rested in full extension. We then flexed up the knee, removed the polyethylene liner, and pinned the tibial tray into position to match the cautery renzo. The intramedullary drill followed by the keel punch were used to prepare the tibia. Next the trial components were removed. I then injected the posterior capsule and periosteum with the periarticular injection cocktail. The bone cuts were then irrigated and dried while the cement was mixed on the back table. The femoral component was cemented on first. Excess cement was removed. A lap sponge was placed over the femoral component for protection, then the tibia was subluxated anteriorly. The all polyethylene tibial component was then cemented in place. Again excess cement was removed. The knee was brought into full extension and held there until the cement cured. The patella was cemented and clamped. Dilute Betadine solution was then allowed to soak in the knee while the cement cured. Once the cement was fully cured, the knee was irrigated out, the tourniquet was let down and meticulous hemostasis was ensured. The knee was brought through a full range of motion. I was were very happy with the patella tracking and the stability. We then began to close. Interrupted 0 Vicryl suture was used to repair the patellar retinaculum in [id number] fashion. The quadriceps and patellar tendons were run with #1 Vicryl. The deep dermal layer was closed with interrupted 2-0 Vicryl. Dermabond and Zipline was used for the skin, followed by a Silverlon dressing. A compressive Ham wrap was placed and the knee was placed into a knee immobilizer. Patient's sedation was lifted and was transferred to recovery room in stable condition. Summary of implants: Depuy Attune Posterior Stabilized Cemented Femur, size 7 right Attune All-polyethylene tibial component, posterior stabilized 5 mm thickness, size 7 Attune patella medialized dome, size 41 2 batches of Palacos high viscosity bone cement Postoperative course: Patient will be admitted to the floor for pain control and monitoring. Weightbearing as tolerated with a walker with no knee range of motion for 48 hours. Aspirin for DVT prophylaxis. I attest to the content of the Intraoperative Record and any orders documented therein. Any exceptions are noted below.
--- NOTE | 2024-01-09 11:20 | Operative Report ---
Post Operative Report Pre & Post Diagnosis Operation Date: 01/09/24 09:10 Pre-Op Diagnosis: Right Knee Osteoarthritis Post-Op Diagnosis: Right Knee Osteoarthritis I identified the patient and participated in the time-out.: Yes Procedure Operation Date: 01/09/24 09:10 Actual Procedures p Right Total Knee Arthroplasty(Right) - Dileep Ricardo MD Surgeon Dr. Ricardo Char House Supervisor Dhara Blum PA-C. No resident or fellow was available to assist. Estimated Blood Loss 100 Findings Consistent with Post-Op Diagnosis Specimens none Complications none Description of Procedure I was present during the entire case. I assisted with transferring patient, draping leg, retracting, hemostasis wound closure, and dressing application. I assisted transferring patient to liter. Patient left the OR in stable condtion. Please refer to Dr. Ricardo for complete details. , I attest to the content of the Intraoperative Record and any orders documented therein. Any exceptions are noted below.
[2024-01-09] MEDS ORDERED: HYDROmorphone INJ 1 MG/ML SYRINGE IV PRN (11:24)
[2024-01-09] MEDS ORDERED: traMADol HCL 50 MG TABLET PO PRN (11:24)
[2024-01-09] MEDS ORDERED: MAGNESIUM HYDROXIDE SUSP 30 ML UDC PO PRN (11:24)
[2024-01-09] MEDS ORDERED: NALOXONE HCL 0.4 MG/1 ML VIAL/CARP IV PRN (11:24)
[2024-01-09] MEDS ORDERED: PHARMACY GLYCEMIC MGMT CONSULT PRN (11:24)
[2024-01-09] MEDS ORDERED: diphenhydrAMINE Capsule 25 MG CAP PO PRN (11:24)
[2024-01-09] MEDS ORDERED: bisacodyL 10 MG SUPP PR PRN (11:24)
[2024-01-09] MEDS ORDERED: METOCLOPRAMIDE HCL INJ 5 MG/ML 2 ML VIAL IV PRN (11:24)
[2024-01-09] MEDS: fentaNYL citrate PF 100 MCG/2 ML VIAL IV PRN (11:49)
[2024-01-09] MEDS ORDERED: GLUCOSE 40% GEL 15 GM TUBE PO PRN (12:00)
[2024-01-09] MEDS ORDERED: GLUCOSE 10 TAB/TUBE PO PRN (12:00)
[2024-01-09] MEDS ORDERED: GLUCAGON FOR INJ 1 MG VIAL IM PRN (12:00)
[2024-01-09] MEDS ORDERED: CARBOHYDRATES FOR HYPOGLYCEMIA PO PRN (12:00)
[2024-01-09] MEDS ORDERED: DEXTROSE 50% 50 ML SYRINGE IV PRN (12:00)
--- NOTE | 2024-01-09 12:11 | Anesthesiology Progress Note ---
Date of Service January 09, 2024 Anesthesia Post Procedure Vital Signs Vital Signs: Temp Pulse Resp BP Pulse Ox O2 Del Method O2 Flow Rate 01/09/24 12:05 90 14 116/74 93 Nasal Cannula 2 01/09/24 11:55 92 H 13 141/76 H 92 Nasal Cannula 2 01/09/24 11:45 96 H 15 126/58 L 94 Nasal Cannula 2 01/09/24 11:35 94 H 10 L 142/79 H 95 Nasal Cannula 2 01/09/24 11:25 96 H 14 126/58 L 95 Nasal Cannula 2 01/09/24 11:17 36.0 C L 97 H 15 138/76 96 Room Air 2 01/09/24 08:35 36.6 C 76 20 138/90 94 Room Air Pain Intensity Right Knee: Pain Intensity: 6 Transfer of Care Handoff Completed per policy Notes Mental Status: alert / awake / arousable Patient Amnestic to Procedure: Yes Nausea / Vomiting: adequately controlled Pain: adequately controlled Airway Patency, RR, SpO2: stable & adequate BP & HR: stable & adequate Hydration State: stable & adequate Anesthetic Complications: no major complications apparent and Pt Satisfied with anesthetic care
--- NOTE | 2024-01-09 12:22 | XRay Report ---
XR knee RT 1 or 2V routine CLINICAL HISTORY: Postoperative evaluation. COMPARISON: Right knee radiographs December 18, 2023. FINDINGS: Alignment of the total right knee arthroplasty is anatomic. There is a polyethylene tibial component. There is no periprosthetic fracture or unexpected radiopaque foreign body. IMPRESSION: Expected findings following total right knee arthroplasty. ACT 112: Negative or not required by law. Electronically signed by: Stan Powell M.D. 01/09/2024 12:21 PM
[2024-01-09] MEDS: KETOROLAC TROMETHAMINE 15 MG/ML VIAL IV SCH (13:13)
[2024-01-09] MEDS ORDERED: GABAPENTIN 300 MG CAP PO PRN (14:23)
[2024-01-09] MEDS ORDERED: NITROGLYCERIN SL 0.4 MG/TAB TAB SL PRN (14:23)
[2024-01-09] MEDS: ORTHO JOINT ANESTHETIC ONE (14:51)
[2024-01-09] MEDS: SODIUM CHLORIDE 0.9% 1,000 ML IV SCH (14:56)
[2024-01-09] MEDS ORDERED: Scopolamine CHECK PATCH PLACEMENT SCH (16:00)
[2024-01-09] MEDS: INSULIN ASPART PER UNIT CHARGE SC SCH (17:33)
[2024-01-09] MEDS: TAMSULOSIN HCL 0.4 MG CAP PO SCH (19:58)
[2024-01-09] MEDS: SENNA 8.6 MG TAB PO SCH (19:58)
[2024-01-09] MEDS: rOPINIRole HCL 2 MG TABLET PO SCH (20:23)
[2024-01-09] MEDS: oxyCODONE HCL IR 5 MG TAB (IMMEDIATE RELEASE) PO PRN (20:23)
[2024-01-09] MEDS: MAGNESIUM OXIDE 400 MG TAB PO SCH (20:23)
[2024-01-09] MEDS: DOCUSATE SODIUM 100 MG CAP PO SCH (20:23)
[2024-01-09] MEDS: buPROPion HCl 75 MG TABLET PO SCH (20:23)
[2024-01-09] MEDS ORDERED: DOCUSATE SODIUM 100 MG CAP PO SCH (21:00)
[2024-01-09] MEDS ORDERED: TAMSULOSIN HCL 0.4 MG CAP PO SCH (21:00)
--- OUTSIDE RECORDS SUMMARY | 2024-01-09 22:17 | External Medical Summary | Continuity of Care Document ---
Author Name Unknown Organization [facility] [id number] [id number] Address [address] [place] [id number] Care Team Providers Care Legal Transcriber Name Role Phone Leatha Farrell Primary Care Physician [phone] [id number] Date(s): 12/18/23 - 12/18/23 [facility] [address] [facility] [address] [facility] [address] [place] [address] Encounter Diagnosis Pre-op exam(Discharge Diagnosis) - 12/18/23 Osteoarthritis of right knee(Discharge Diagnosis) - 12/18/23 Discharge Disposition: Home or Self Care Attending Physician: JOLIE Hutchinson Dennis Referring Physician: MD Davion, Dileep Mcgill Allergies, Adverse Reactions, Alerts Substance Reaction Severity Status Mirapex insomnia Active Ambien hallucinations, sleep walking Active metFORMIN rash Active rOPINIRole nasal congestion Active Immunizations Given and Recorded Vaccine Date Status Refusal Reason tetanus/diphtheria/pertuss, acel (Tdap) 06/04/23 R ecorded influenza virus vaccine, inactivated 06/04/23 Franco rded influenza virus vaccine, inactivated 06/08/21 Give n influenza virus vaccine, inactivated 05/26/18 Give n influenza virus vaccine, inactivated 07/01/13 Franco rded influenza virus vaccine, inactivated 07/03/12 Give n SARS-CoV-2 (COVID-19) mRNA-1273 vaccine 01/19/22 R ecorded SARS-CoV-2 (COVID-19) mRNA-1273 vaccine 08/07/21 R ecorded SARS-CoV-2 (COVID-19) mRNA-1273 vaccine 12/03/20 R ecorded SARS-CoV-2 (COVID-19) mRNA-1273 vaccine 10/31/20 R ecorded pneumococcal 13-valent vaccine 03/23/15 Given Medications albuterol CFC free 90 mcg/inh MDI Start: 01/04/22 15:56:00 EDT, 2 puff, inhaled, qid, Disp# 18 g, PRN: as needed for wheezing or SOB,Pharmacy: [facility] Start Date: 01/04/22 Status: Ordered Anusol-HC 2.5% topical cream Start: 08/21/16 12:11:50, 1 appl, topical, tid, Disp# 30 g, Refills: 2, apply in a thin film to theaffected skin and rub in gently and completely, around perianal, Pharmacy: [facility] (90 Day Supply) Start Date: 08/21/16 Status: Ordered aspirin Start: 10/31/20 18:06:00 EST, 81 mg =, PO, Daily Start Date: 10/31/20 Status: Ordered atorvastatin 80 mg oral tablet Start: 10/07/23 11:41:00 EST, 1 tab, PO, Daily, Disp# 90 tab, Refills: 0, Pharmacy: [facility] [id number] Start Date: 10/07/23 Status: Ordered clopidogrel 75 mg oral tablet Start: 04/09/23 17:04:00 EDT, 1 tab, PO, Daily, Disp# 30 tab, Refills: 2, Pharmacy: [facility] [id number] Start Date: 04/09/23 Status: Ordered diclofenac 1% topical gel Start: 02/11/20 13:23:18 EDT, See Instructions, Disp# 100, APPLY 2 GRAMS TOPICALLY TO AREA AROUND CMC JOINT 4 TIMES DAILY NEEDED FOR PAIN, Pharmacy: [facility] [id number] Start Date: 02/11/20 Status: Ordered fluticasone 50 mcg/inh nasal spray Start: 07/27/22 11:01:00 EST, 2 spray, intranasal, Daily, Disp# 16 g, as needed for nasal pain/congestion, Pharmacy: [facility] [id number] Start Date: 07/27/22 Status: Ordered gabapentin 300 mg oral capsule Start: 12/13/23 14:38:00 EDT, See Instructions, Disp# 30 cap, 1 cap PO qAm and 2 caps qPM., other Start Date: 12/13/23 Status: Ordered ketoconazole 2% topical shampoo Start: 03/01/23 11:02:00 EDT, 1 appl, topical, Daily, Disp# 120 mL, Refills: 3, apply to scalp, [facility] Start Date: 03/01/23 Status: Ordered lisinopril 10 mg oral tablet Start: 12/07/21 9:02:00 EDT, 1 tab, PO, Daily Start Date: 12/07/21 Status: Ordered multivitamin 1 tab, PO, Daily, 0, 0, 01/21/08 14:59:32, current medication from another provider, [id number], Constant Indicator Start Date: 01/21/08 Status: Ordered nitroglycerin 0.4 mg sublingual tablet Start: 12/28/22 11:04:00 EDT, 1 tab, SL, q5min, Disp# 25 tab, PRN: as needed for chest pain Start Date: 12/28/22 Status: Ordered Ozempic (0.25 mg or 0.5 mg dose) 2 mg/3 mL subQ pen Start: 09/20/23 11:54:00 EST, 0.5 mg, subQ, q7days, Disp# 12 mL, Refills: 0, ROTATE INJECTION SITES, Note to Pharmacy: 90 day supply, Pharmacy: [facility], Supply Start Date: 09/20/23 Status: Ordered Pepcid Start: 03/05/17 8:37:00, PO, Pre Event Start Date: 03/05/17 Status: Ordered rOPINIRole 2 mg oral tablet Start: 09/22/19 17:02:00 EST, See Instructions, Disp# 90 tab, Refills: 3, TAKE ONE TABLET BY MOUTH,TOGETHER WITH 0.5 MG PILLS 1 to 3 hours before bedtime, Pharmacy: [facility] Start Date: 09/22/19 Status: Ordered solifenacin Start: 12/18/23 9:53:00 EDT, 5 mg =, PO, Daily Start Date: 12/18/23 Status: Ordered sumatriptan 50 mg oral tablet Start: 09/22/14 14:43:57, 1 tab, PO, ONCE, Disp# 27 tab, Refills: 3, PRN: as needed for migraine headache, Pharmacy: [facility], 1 tab PO ONCE,PRN:as needed for migraine headache Start Date: 09/22/14 Stop Date: 07/19/15 Status: Ordered tamsulosin 0.4 mg oral capsule Start: 12/13/23 14:12:00 EDT, 1 cap, PO, Daily Start Date: 12/13/23 Status: Ordered triamcinolone 0.1% topical lotion Start: 08/30/23 11:16:00 EST, 1 appl, topical, bid, Disp# 60 mL, Refills: 3, apply to scalp, [facility]acy[facility] Start Date: 08/30/23 Status: Ordered triamcinolone 0.1% topical ointment Start: 12/09/18 11:27:00 EDT, 1 appl, topical, bid, Disp# 80 g, Refills: 3, apply to legs, [facility] Start Date: 12/09/18 Status: Ordered Wellbutrin 75 mg oral tablet Start: 06/27/17 9:40:00 EDT, 2 tab, PO, Daily Start Date: 06/27/17 Status: Ordered Mental Status 12/18/23 Barriers to Learning one year None evide nt Mandatory Health Literacy Documentation Yes Health Literacy Communication Barriers N ever Primary Language Swedish Problem List Condition Confirmation Course Effective Dates Status Health Status Informant Aggressive ex-smoker Confirmed Active Memory loss Confirmed Active Anxiety Confirmed Active Arthritis of carpometacarpal (CMC) joints of both thumbs Confirmed Active Atherosclerosis of aorta 1 Confirmed Active Chronic pain Confirmed Active Collar bone 2 Confirmed Active CAD (coronary artery disease) Confirmed Active DJD, SITE UNSPECIFIED Confirmed Active Right hand pain Confirmed Active Right hip pain Confirmed Active History of lumbar fusion Confirmed Active Hypercholesterolemia Confirmed Active HTN (hypertension) Confirmed Active Lumbar microdiscectomy Confirmed Active Lumbar spinal fusion Confirmed Active MIGRAINE Confirmed Active CO (mitral incompetence) Confirmed 09/19/20 Active Neuropathy Confirmed Active COLEEN (obstructive sleep apnea) Confirmed Active Optic nerve cupping of both eyes Confirmed Active Osteoarthritis 3 Confirmed Active Overactive bladder Confirmed Active Right wrist pain Confirmed Active COPD type A Confirmed Active Depression, major, recurrent, mild Confirmed Active Restless legs syndrome (RLS) Confirmed Active Pain in left shoulder Confirmed Active De Quervain's tenosynovitis, right Confirmed Active Tremor Confirmed Active 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 2partial removal Rt 3at the STT & first carpometacarpal joint 4[facility] Diagnosis Diagnosis Type Effective Dates Health Status Clinical Service Informant Pre-op exam Discharge Diagnosis 12/18/23 Osteoarthritis of right knee Discharge Diagnosis 12/18/23 Procedures Procedure Date Related Diagnosis Body Site Status de Quervain's disease of left wrist 1 10/14/[address] of lungs 2 12/21/[address] of chest- lung screening 3 12/20/21 Completed Polysomnograph 4 05/05/21 Complete d Colonoscopy 5, 6 08/18/19 Complete d PFT 7 06/30/19 Completed Injection 09/07/16 Completed Injection(s), anesthetic age nt and/or steroid, transforaminal epidural, with imaging guidance (fluoroscopy or CT); lumbar or sacral, single level 04/23/16 C ompleted Injection(s), anesthetic age nt and/or steroid, transforaminal epidural, with imaging guidance (fluoroscopy or CT); lumbar or sacral, single level 02/01/15 C ompleted Injection(s), anesthetic age nt and/or steroid, transforaminal epidural, with imaging guidance (fluoroscopy or CT); lumbar or sacral, single level 8 09/02/14 Completed Lumbar epidural steroid injection 06/01/14 Completed removal hardware in back, fusion 06/30/12 Completed Decompression laminectomy 2011 Completed Fusion of lumbar spine 2011 Completed Injection(s), anesthetic age nt and/or steroid, transforaminal epidural, with imaging guidance (fluoroscopy or CT); lumbar or sacral, single level 11 10/02/10 Completed Right Bunionectomy 2010 Comple obi History of shoulder surgery, right 2010 Completed colonoscopy 08/2009 Completed Excision of basal cell carcinoma 05/2008 Completed Discectomy 11/2007 Completed Epidural steroid injection, caudal 13 08/01/07 Completed Cholecystectomy 2005 Completed Hemorrhoid operation 1999 Comp leted Back fusion 1990 Completed Clavicle, right repair 1987 Co mpleted MRI of joint of right lower extremity 15 Completed MRI- lumbar Completed Procedure 16 Completed 1Left First Dorsal Compartment Release 2Impression: No suspicious pulmonary nodules. NO change in two suspicio point nodules since chest CTof December 20, 2021. These can be assessed on routine annual screening CT. Lung RADS Category 2- Benign appearance or behavoir- nodules with a very low likelihood of becoming a clinically active cancer due to sie or lack of growth. Continue annual screening. 3IMPRESSION: 1. There is no airspace consolidation or pleural effusion. 2. There are at least 2 low suspicion subcentimeter pulmonary nodules as above. Attention at follow-up is recommended. 3. Advanced coronary artery calcification. 4. Additional findings as above. Overall Lung RADS Category: 2 - Benign appearance or behavior - Nodules with a very low likelihood of becoming a clinically active cancer due to size or lack of growth. Continue annual screening. 4Impression Severe sleep apnea corrected with BiPAP 05/21 5f/u 5 years 6Impression - Diverticulosis in the sigmoid colon - One 3mm polyp in the transverse colon, removed 7Mild obstructive airways disease with very slight improvement after inhaled bronchodilator 8Right L2 selective nerve root injection 9neurogenic claudication - L4-5 laminectomy with hardware and rbone graft and emoval of old S1 fusion hardware [id number] 11right L3 12ED&C 13also /12/22, 07/24, 01/22 14L4 L5 15MRI RT LOWER JOINT W/O CONTRAST 1. Osteoarthritis 2. Complex tear of the medial meniscus. 3. Mucoid degeneration ACL. 4. Small Carlos's cyst. 16heart stents Vital Signs Most recent to oldest [Reference Range]: 1 Temperature [36.5-37.9 DegC] 36.3 DegC *LOW* (12/18/23 9:54 AM) Respiratory Rate 20 br/min (12/18/23 9:54 AM) Blood Pressure 110/64mmHg (12/18/23 9:54 AM) Cuff Pulse Pressure 46 mmHg (12/18/23 9:54 AM) Social History Social History Type Response Smoking Status Never smoked cigaret chata Sex Male Patient Care team information Care Team Personnel Name: MD Meeks Jonathan D Position: Physician - Family Med Member Role: Lifetime Relationship Address: Address: [address] [facility] [facility] [address] [place] [address] [place] Name: DO Rosa Jill M Position: Physician - Anesthesiologist Member Role: Lifetime Relationship Address: Address: [address] [place] [address] [address] [place] [address] [place] Name: MD Farrell Dongsheng Position: Physician - Family Med Member Role: Primary Care Provider Address: Address: [address] [facility] [address] [place] [address] Name: JOLIE Segundo, Malina Fletcher Position: Physician Set And Exhibit Designer - Orthopaedic Surg Member Role: Lifetime Relationship Address: Address: [address] [facility] [address] [place] [address], [place] [address] Care Team Related Persons Name: JEREMÍAS JOSE Address: home [address] [place] [id number] Name: JEREMÍAS JOSE Address: home [address] [place] [id number]
[2024-01-10 07:34] LABS: Hematocrit (blood only) 34.5 % (42.0-52.0); Hemoglobin 11.2 g/dl (14.0-18.0); Mean Corpuscular Hemoglobin 30.2 pg (25.0-34.0); Mean Corpuscular Hgb Conc 32.5 g/dL (32.0-36.0); Platelet Count 152 K/uL (130-400); RDW Standard Deviation 44.4 fL (36.4-46.3); Red Blood Count 3.71 M/uL (4.70-6.10); White Blood Count 9.82 K/ul (4.8-10.8)
[2024-01-10 07:48] LABS: BUN Creatinine Ratio 25.8 (10-20); Calcium 7.8 mg/dl (8.6-10.3); Est GFR (African American) 96.3 ml/min; Est GFR (Non-African American) 83.1 ml/min; Potassium 4.1 mmol/L (3.5-5.1)
[2024-01-10] MEDS: ASPIRIN 81 MG ECTAB PO SCH (08:02)
[2024-01-10] MEDS: ATORVASTATIN 40 MG TAB PO SCH (08:03)
[2024-01-10] MEDS: CLOPIDOGREL BISULFATE 75 MG TAB PO SCH (08:03)
[2024-01-10] MEDS: OXYBUTYNIN CHLORIDE XL 5 MG TABCR PO SCH (08:04)
[2024-01-10] MEDS: lisinopril 10 MG TAB PO SCH (08:04)
[2024-01-10] MEDS ORDERED: NON-FORMULARY MEDICATION (Multivitamin Tablet) PO SCH (09:00)
[2024-01-10] MEDS: MULTIVITAMIN TAB PO SCH (09:28)
--- NOTE | 2024-01-10 10:06 | Orthopedic Progress Note ---
Date of Service January 10, 2024 Assessment & Plan (1) Status post total right knee replacement: Plan: Patient is postop day 1 status post a right total knee arthroplasty doing great Patient will continue to be weightbearing as tolerated with walker utilizing knee immobilizer and discharging on 01/11/2024. He was advised when resting he may remove the knee immobilizer and gently do active range of motion not to be aggressive or past 90 degrees at this time. He will continue with RAY hose x 4 weeks and resume aspirin and Plavix that he had been taken preoperatively for DVT prophylaxis. No prescription for diclofenac was sent due to Plavix and aspirin use PDMP was queried, patient has history of [facility] I did discuss with patient I will send oxycodone for short-term use and to hold the Korbel while he is taking the oxycodone. I do feel patient's pain would be better managed with oxycodone during this perioperative time. He was advised on dosage, side effects and risk with medication Advised on pacing himself and utilizing ice over the knee x 15 to 20 minutes as needed with a towel layer. He will participate in home therapy upon discharge He was advised on keeping the incision dry. Patient has all walker at home advised on using this until instructed by therapist otherwise. He will follow-up in our outpatient office as scheduled on 01/22/2024 All questions were answered to patient's satisfaction He will call with any questions or concerns. Patient verbalized understanding and is in agreement with plan. Admission and Anticipated Discharge Date Admission Date: January 09, 2024 Subjective Patient is a 78-year-old male who is in a patient Dr. Hwang off. He is postop day #1 status post a right total knee arthroplasty with Dr. Hwang off. He is seen bedside sitting up in bedside chair this a.m. He is in good spirits. He is alert and oriented x 3. He states that he did well throughout the night. He states he has mild discomfort in his knee at this time rated 5/10. He states he did participate in physical therapy and has been doing well. He has been utilizing the knee immobilizer. He feels he is able to go home and has a walker at home to use. He states he has been able to eat ever since surgery denies any nausea vomiting or abdominal pain. He denies any chest pain, shortness of breath, dizziness or calf pain. He offers no concerns. Review of Systems Review of Systems: Please refer to HPI Physical Exam Physical Exam: General: Patient is alert and oriented x 3 pleasant and conversive in good spirits. Sitting upright in bedside chair Integumentary/musculoskeletal: Knee immobilizer is in place this was removed outer dressing is clean and dry this was removed Silverlon is in place negative for any soiling. Negative for any ecchymosis or edema over the right lower extremity. Negative for any erythema surrounding the dressing. Patient is able to actively extend knee to 0 and he can actively flex knee to approximately 60 degrees. He is able to actively dorsiflex and plantarflex ankle. His calf is soft and nontender. Negative Homans' sign. Dorsal pedis pulses 2+. Patient was placed back into a knee immobilizer. Results & Data Vital Signs (Past 12 Hours) Vital Signs Temp Pulse Resp BP Pulse Ox O2 Del Method 01/10/24 08:11 83 16 101/62 93 Room Air 01/10/24 07:23 36.3 C L 67 12 99/61 L 90 Room Air 01/10/24 02:35 36.4 C L 75 16 108/59 L 92 Room Air 01/09/24 22:34 36.7 C 80 16 120/70 94 Room Air Laboratory Results 01/10/24 01/10/24 01/09/24 Range/Units 07:52 06:39 20:32 WBC 9.82 (4.8-10.8) K/ul RBC 3.71 L (4.70-6.10) M/uL Hgb 11.2 L (14.0-18.0) g/dl Hct 34.5 L (42.0-52.0) % MCV 93.0 (80.0-100.0) fL MCH 30.2 (25.0-34.0) pg MCHC 32.5 (32.0-36.0) g/dL RDW Std Deviation 44.4 (36.4-46.3) fL RDW Coeff of Linh 13.0 (11.5-14.5) % Plt Count 152 (130-400) K/uL MPV 11.0 (9.4-12.4) fL Sodium 136 (136-145) mmol/L Potassium 4.1 (3.5-5.1) mmol/L Chloride 106 (98-107) mmol/L Carbon Dioxide 27 (21-32) mmol/L Anion Gap 3 (3-11) BUN 23 (6-23) mg/dl Creatinine 0.89 (0.6-1.4) mg/dl Est Cr Clr Drug Dosing 66.0 ml/min Est GFR ( Amer) 96.3 ml/min Est GFR (Non-Af Amer) 83.1 ml/min BUN/Creatinine Ratio 25.8 H (10-20) Glucose 121 H (70-99(Fasting)) mg/dl POC Glucose 109 H 92 (70-99) mg/dl Estimat Average Glucose Pending Hemoglobin A1c Pending Calcium 7.8 L (8.6-10.3) mg/dl 01/09/24 01/09/24 Range/Units 16:28 11:20 WBC (4.8-10.8) K/ul RBC (4.70-6.10) M/uL Hgb (14.0-18.0) g/dl Hct (42.0-52.0) % MCV (80.0-100.0) fL MCH (25.0-34.0) pg MCHC (32.0-36.0) g/dL RDW Std Deviation (36.4-46.3) fL RDW Coeff of Linh (11.5-14.5) % Plt Count (130-400) K/uL MPV (9.4-12.4) fL Sodium (136-145) mmol/L Potassium (3.5-5.1) mmol/L Chloride (98-107) mmol/L Carbon Dioxide (21-32) mmol/L Anion Gap (3-11) BUN (6-23) mg/dl Creatinine (0.6-1.4) mg/dl Est Cr Clr Drug Dosing ml/min Est GFR ( Amer) ml/min Est GFR (Non-Af Amer) ml/min BUN/Creatinine Ratio (10-20) Glucose (70-99(Fasting)) mg/dl POC Glucose 105 H 128 H (70-99) mg/dl Estimat Average Glucose Hemoglobin A1c Calcium (8.6-10.3) mg/dl Diagnostic Findings Knee X-Ray 01/09/24 11:24 XR knee RT 1 or 2V routine CLINICAL HISTORY: Postoperative evaluation. COMPARISON: Right knee radiographs December 18, 2023. FINDINGS: Alignment of the total right knee arthroplasty is anatomic. There is a polyethylene tibial component. There is no periprosthetic fracture or unexpected radiopaque foreign body. IMPRESSION: Expected findings following total right knee arthroplasty. ACT 112: Negative or not required by law. Electronically signed by: Stan Powell M.D. 01/09/2024 12:21 PM
[2024-01-10 10:08] LABS: Estimated Average Glucose 126 mg/dl
--- NOTE | 2024-01-10 10:26 | Discharge Summary ---
Date of Service January 10, 2024 Admission HPI Per Admitting Provider History of Present Illness (including history relevant to procedure): This 78 yo M present to the clinic today for his preoperative history and physical examination. He has severe pain in his right anteromedial knee when walking, especially on uneven ground. He [facility] and takes 3 tablets a day and takes Tylenol as needed. Patient notices swelling and denies radiating pain. He has no allergy to latex or rubber gloves. Patient has Type II diabetes and is on Ozempic. He his on Plavix. His electing to proceed with surgical intervention at this time Review Of Systems: 12 point review of systems is performed and is unremarkable except for those things stated in the HPI past medical history. 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 COPD type A Depression, major, recurrent, mild Pain in left shoulder Right hip pain History of lumbar fusion Right hand pain De Quervain's tenosynovitis, right Right wrist pain Arthritis of carpometacarpal (CMC) joints of both thumbs Osteoarthritis Optic nerve cupping of both eyes Neuropathy DJD, SITE UNSPECIFIED Back pain Hypercholesterolemia Restless legs syndrome (RLS) MIGRAINE Anxiety Chronic pain Collar bone Lumbar microdiscectomy Lumbar spinal fusion Leg NV (mitral incompetence) Procedure History Procedure Procedure Date Comments MRI- lumbar Procedure - heart stents MRI of joint of right lower extremity - MRI RT LOWER JOINT W/O CONTRAST 1. Osteoarthritis2. Complex tear of the medial meniscus.3. Mucoid degeneration ACL.4. Small Carlos's cyst. de Quervain's disease of left wrist 10/14/2023 - Left First Dorsal Compartment Release CT of lungs 12/21/2022 - Impression: No suspicious pulmonary nodules. NO change in two suspicio point nodules since chest CT of December 20, 2021. These can be assessed on routine annual screening CT. Lung RADS Category 2- Benign appearance or behavoir- nodules with a very low likelihood of becoming a clinically active cancer due to sie or lack of growth. Continue annual screening. CT of chest- lung screening 12/20/2021 - IMPRESSION: 1. There is no airspace consolidation or pleural effusion.2. There are at least 2 low suspicion subcentimeter pulmonary nodules as above. Attention at follow-up is recommended.3. Advanced coronary artery calcification.4. Additional findings as above.Overall Lung RADS Category: 2 - Benign appearance or behavior - Nodules with a very low likelihood of becoming a clinically active cancer due to size or lack of growth. Continue annual screening. Polysomnograph 05/05/2021 - ImpressionSevere sleep apnea corrected with BiPAP 05/21 Colonoscopy 08/18/2019 - f/u 5 years - Impression- Diverticulosis in the sigmoid colon- One 3mm polyp in the transverse colon, removed PFT 06/30/2019 - Mild obstructive airways disease with very slight improvement after inhaled bronchodilator Injection 09/07/2016 Injection(s), anesthetic agent and/or steroid, transforaminal epidural, with imaging guidance (fluoroscopy or CT); lumbar or sacral, single level 04/23/2016 Injection(s), anesthetic agent and/or steroid, transforaminal epidural, with imaging guidance (fluoroscopy or CT); lumbar or sacral, single level 02/01/2015 Injection(s), anesthetic agent and/or steroid, transforaminal epidural, with imaging guidance (fluoroscopy or CT); lumbar or sacral, single level 09/02/2014 - Right L2 selective nerve root injection Lumbar epidural steroid injection 06/01/2014 Decompression laminectomy 2011 - neurogenic claudication - L4-5 laminectomy with hardware and rbone graft and emoval of old S1 fusion hardware Fusion of lumbar spine Before 2011 - L5-S1 removal hardware in back, fusion 06/30/2012 Right Bunionectomy Before 2010 Injection(s), anesthetic agent and/or steroid, transforaminal epidural, with imaging guidance (fluoroscopy or CT); lumbar or sacral, single level 10/02/2010 - right L3 History of shoulder surgery, right Before 2009 colonoscopy 08/2009 Excision of basal cell carcinoma 05/2008 - ED&C Discectomy 11/2007 Epidural steroid injection, caudal 08/01/2007 - also 10/20/07, 07/24, 01/22 Cholecystectomy 2006 Hemorrhoid operation 1999 Back fusion 1990 - L4 L5 Clavicle, right repair 1987 Allergies and Sensitivities: Ambien(hallucinations, sleep walking) metFORMIN(rash) Mirapex(insomnia) rOPINIRole(nasal congestion) Current Home Meds: (Last Updated 12/17 09:53) albuterol (albuterol CFC free 90 mcg/inh MDI) 2 puff inhaled qid PRN: as needed for wheezing or SOB aspirin 81 mg PO Daily atorvastatin (atorvastatin 80 mg oral tablet) 1 tab PO Daily buPROPion (Wellbutrin 75 mg oral tablet) 150 mg PO Daily clopidogrel (clopidogrel 75 mg oral tablet) 75 mg PO Daily diclofenac topical (diclofenac 1% topical gel) APPLY 2 GRAMS TOPICALLY TO AREA AROUND CMC JOINT 4 TIMES DAILY NEEDED FOR PAIN famotidine (Pepcid) PO Pre Event fluticasone nasal (fluticasone 50 mcg/inh nasal spray) 2 spray intranasal Daily as needed for nasal pain/congestion gabapentin (gabapentin 300 mg oral capsule) 1 cap PO qAm and 2 caps qPM. hydrocortisone topical (Anusol-HC 2.5% topical cream) 1 appl topical tid apply in a thin film to the affected skin and rub in gently and completely, around perianal ketoconazole topical (ketoconazole 2% topical shampoo) 1 appl topical Daily apply to scalp lisinopril (lisinopril 10 mg oral tablet) 10 mg PO Daily multivitamin 1 tab PO Daily nitroglycerin (nitroglycerin 0.4 mg sublingual tablet) 0.4 mg SL q5min PRN: as needed for chest pain rOPINIRole (rOPINIRole 2 mg oral tablet) TAKE ONE TABLET BY MOUTH, TOGETHER WITH 0.5 MG PILLS1 to 3 hours before bedtime semaglutide (Ozempic (0.25 mg or 0.5 mg dose) 2 mg/3 mL subQ pen) 0.5 mg subQ q7days ROTATE INJECTION SITES solifenacin 5 mg PO Daily sumatriptan (sumatriptan 50 mg oral tablet) 50 mg PO ONCE PRN: as needed for migraine headache tamsulosin (tamsulosin 0.4 mg oral capsule) 0.4 mg PO Daily triamcinolone topical (triamcinolone 0.1% topical lotion) 1 appl topical bid apply to scalp triamcinolone topical (triamcinolone 0.1% topical ointment) 1 appl topical bid apply to legs No Vital Signs Data Available Initial Wt: Temp: 36.3; pulse: 86; blood pressure: 110/64; oxygen saturation: 94% Studies (relevant to the procedure): X-ray imaging: Long leg alignment films and 3 views of the right knee obtained show Varus alignment. Small bone spurs off patella. PA flex view shows near [id number] arthritis in the medial compartment of the knee [facility] Results WBC 9.82 K/ul (4.8-10.8) 01/10/24 06:39 RBC 3.71 M/uL (4.70-6.10) L 01/10/24 06:39 Hgb 11.2 g/dl (14.0-18.0) L 01/10/24 06:39 Hct 34.5 % (42.0-52.0) L 01/10/24 06:39 MCV 93.0 fL (80.0-100.0) 01/10/24 06:39 MCH 30.2 pg (25.0-34.0) 01/10/24 06:39 MCHC 32.5 g/dL (32.0-36.0) 01/10/24 06:39 RDW Std Deviation 44.4 fL (36.4-46.3) 01/10/24 06:39 RDW Coeff of Linh 13.0 % (11.5-14.5) 01/10/24 06:39 Plt Count 152 K/uL (130-400) 01/10/24 06:39 MPV 11.0 fL (9.4-12.4) 01/10/24 06:39 Sodium 136 mmol/L (136-145) 01/10/24 06:39 Potassium 4.1 mmol/L (3.5-5.1) 01/10/24 06:39 Chloride 106 mmol/L (98-107) 01/10/24 06:39 Carbon Dioxide 27 mmol/L (21-32) 01/10/24 06:39 Anion Gap 3 (3-11) 01/10/24 06:39 BUN 23 mg/dl (6-23) 01/10/24 06:39 Creatinine 0.89 mg/dl (0.6-1.4) 01/10/24 06:39 Est Cr Clr Drug Dosing 66.0 ml/min 01/10/24 06:39 Est GFR ( Amer) 96.3 ml/min 01/10/24 06:39 Est GFR (Non-Af Amer) 83.1 ml/min 01/10/24 06:39 BUN/Creatinine Ratio 25.8 (10-20) H 01/10/24 06:39 Glucose 121 mg/dl (70-99(Fasting)) H 01/10/24 06:39 POC Glucose 109 mg/dl (70-99) H 01/10/24 07:52 Estimat Average Glucose 126 mg/dl 01/10/24 06:39 Hemoglobin A1c 6.0 % (4.5-5.6) H 01/10/24 06:39 Calcium 7.8 mg/dl (8.6-10.3) L 01/10/24 06:39 Impressions Knee X-Ray 01/09/24 11:24 XR knee RT 1 or 2V routine CLINICAL HISTORY: Postoperative evaluation. COMPARISON: Right knee radiographs December 18, 2023. FINDINGS: Alignment of the total right knee arthroplasty is anatomic. There is a polyethylene tibial component. There is no periprosthetic fracture or unexpected radiopaque foreign body. IMPRESSION: Expected findings following total right knee arthroplasty. ACT 112: Negative or not required by law. Electronically signed by: Stan Powell M.D. 01/09/2024 12:21 PM Discharge Data Procedures Performed Operation Date: 01/09/24 09:10 Actual Procedures p Right Total Knee Arthroplasty(Right) - Dileep Ricardo MD Hospital Course (1) Status post total right knee replacement: Patient is doing well postoperatively since having the right total knee arthroplasty completed on 01/09/2024. He had an uneventful stay at [facility]. Patient is postop day 1 status post a right total knee arthroplasty doing great Patient will continue to be weightbearing as tolerated with walker utilizing knee immobilizer and discharging on 01/11/2024. He was advised when resting he may remove the knee immobilizer and gently do active range of motion not to be aggressive or past 90 degrees at this time. He will continue with RAY hose x 4 weeks and resume aspirin and Plavix that he had been taken preoperatively for DVT prophylaxis. No prescription for diclofenac was sent due to Plavix and aspirin use PDMP was queried, patient has history of being prescribed [place] [facility]. I did discuss with patient I will send oxycodone for short-term use and to hold the [place] while he is taking the oxycodone. I do feel patient's pain would be better managed with oxycodone during this perioperative time. He was advised on dosage, side effects and risk with medication Advised on pacing himself and utilizing ice over the knee x 15 to 20 minutes as needed with a towel layer. He will participate in home therapy upon discharge He was advised on keeping the incision dry. Patient has all walker at home advised on using this until instructed by therapist otherwise. He will follow-up in our outpatient office as scheduled on 01/22/2024 All questions were answered to patient's satisfaction He will call with any questions or concerns. Patient verbalized understanding and is in agreement with plan.
== END 2024-01-10 11:40 | disposition home health service (06) ==
LOC: PACUINP 07:51 → ASU 07:51 → 3E 14:22